=== PATIENT | female | born 1950 | race Caucasian/White ===

== ENCOUNTER 2018-08-13 10:21 | Emergency (ER) | payer MEDICARE, BC, SELFPAY ==
[2018-08-13 10:25] VITALS: BP 167/80; PULSE 68; RESP 16; TEMP 36.8; O2SAT 99
[2018-08-13 10:54] LABS: Bilirubin Negative (Negative); Blood Negative (Negative); Clarity Clear; Glucose Negative (Negative); Ketones Negative (Negative); Leukocyte Esterase Negative (Negative); Nitrite Negative (Negative); Specific Gravity 1.015 (1.005-1.025); Urobilinogen 0.2 EU/dL (Up TO 0.2); pH 7.5 (5-8)
--- NOTE | 2018-08-13 11:27 | W.ED.GENAD ---
Discharge Plan Disposition Patient Disposition: HOME Discharge Details Chief Complaint: FlankPain Clinical Impression: Acute left-sided low back pain Primary Care Provider: Nithin Abreu ED Provider: Bertram Dan Home Meds and New Rx's Prescriptions: New ibuprofen 600 mg tablet 600 mg PO QID PRN (Reason: pain) Qty: 120 RF: 0 lidocaine 5 % adhesive patch,medicated 1 patch TP DAILY Qty: 15 RF: 0 ondansetron 4 mg tablet,disintegrating 4 mg PO BID PRN (Reason: Nausea) 5 Days Qty: 5 RF: 0 Continue cholecalciferol (vitamin D3) 1,000 UNIT capsule 1 tab PO DAILY RF: 0 omega-3 fatty acids [Fish Oil] 500 MG capsule 1 tab PO DAILY RF: 0 magnesium chloride [Mag 64] 64 MG tablet,delayed release (DR/EC) 1 tab PO DAILY RF: 0 lactobacillus combo no.11 [Probiotic] 1 EACH capsule, sprinkle 1 ea PO RF: 0 biotin 10 MG tablet 10 mg PO DAILY RF: 0 cyanocobalamin (vitamin B-12) [Vitamin B-12] 1,000 MCG tablet 1,000 mcg PO DAILY RF: 0 vit D3-vit [id number] [Ostera] 1 EACH tablet 1 ea PO DAILY RF: 0 coenzyme Q10 [Co Q-10] 10 MG capsule 10 mg PO DAILY RF: 0 riboflavin (vitamin B2) 50 MG tablet 50 mg PO DAILY RF: 0 loratadine-pseudoephedrine [Claritin-D 24 Hour] 1 EACH tablet extended release 24 hr 1 tab-cap PO DAILY RF: 0 dihydroergotamine [Migranal] 1 ML spray,non-aerosol 0.5 mg NS PRN Qty: 1 RF: 0 Discontinued ibuprofen 600 MG tablet 600 mg PO bid prn RF: 0 Discharge Instructions Instructions: Shingles (ED), Low Back Strain (ED) Additional Instructions: Please take ibuprofen 600 mg every 6 hours as needed for pain. Please take Tylenol 650 mg every 6 hours as needed for pain. Please contact your primary care physician to arrange follow-up. Return to the ER for any worsening or new concerning symptoms. Referrals: Nithin Abreu, [Primary Care Provider] - Medical Decision Making 67-year-old female here with left low back and flank pain for the past 5 days. Concern for renal colic versus muscular strain versus other. Urinalysis was obtained and reviewed and is nondiagnostic CT of the abdomen pelvis was obtained to assess for acute surgical pathology. CT of the abdomen and pelvis interpreted by radiology: Negative for renal stone, no obstruction, gallstones are present without signs of acute cholecystitis or obstruction. Results were reviewed with the patient. Patient was reassessed after being medicated with Toradol and Dilaudid IM. Pain significantly improved. Patient much more comfortable. Suspect pain is musculoskeletal in etiology, likely muscular strain versus less likely zoster. We will prescribe lidocaine patches as well as ibuprofen for the patient. Patient was encouraged to follow-up with her primary care physician. She understands importance of timely follow-up. I did recommend she return should she have any worsening or new concerning symptoms 14:30 -- Prior to discharge patient was moving from supine to standing and became nauseous with dry heaving. Suspect reaction to dialudid. Attempted zofran ODT and symptoms persisted. Plan for IV fluids and zofran IV. Will reassess. 16:25 -- Patient reassessed after IVF and feels [facility] better. Pain still resolved and now nausea resolved. HPI General Date/Time Provider Initiated Documentation: 08/13/18 10:40. Limitations to Documentation: no limitations. Information obtained by: patient. HPI Narrative: 67-year-old female presents with chief complaint of left low back and flank pain. Pain started 5 days ago. Pain initially waxed and waned and is now more constant. Pain is severe at times. Pain is described as a hot poker sensation. Pain worse with certain positions including prolonged sitting or standing. No associated numbness or weakness. No associated fever. No associated dysuria or hematuria. No bowel or bladder dysfunction. Related Data Home Medications Medication Instructions Recorded Confirmed cholecalciferol (vitamin D3) 1 tab PO DAILY 02/20/13 08/13/18 magnesium chloride [Mag 64] 1 tab PO DAILY 02/20/13 08/13/18 omega-3 fatty acids [Fish Oil] 1 tab PO DAILY 02/20/13 08/13/18 lactobacillus combo no.11 1 ea PO cap.sprink 08/13/15 09/21/15 [Probiotic] biotin 10 mg PO DAILY 01/03/17 08/13/18 cyanocobalamin (vitamin B-12) 1,000 mcg PO DAILY 01/03/17 08/13/18 [Vitamin B-12] vit D3-vit [id number] 1 ea PO DAILY 01/03/17 08/13/18 [Ostera] coenzyme Q10 [Co Q-10] 10 mg PO DAILY 05/29/18 08/13/18 dihydroergotamine [Migranal] 0.5 mg NS PRN #1 spray 05/29/18 08/13/18 loratadine-pseudoephedrine 1 tab-cap PO DAILY tab-cap 05/29/18 08/13/18 [Claritin-D 24 Hour] riboflavin (vitamin B2) 50 mg PO DAILY 05/29/18 08/13/18 ibuprofen 600 mg PO QID PRN #120 tab 08/13/18 lidocaine 1 patch TP DAILY #15 each 08/13/18 ondansetron 4 mg PO BID PRN 5 Days #5 tab 08/13/18 Previous Rx's Medication Instructions Recorded ibuprofen 600 mg PO QID PRN #120 tab 08/13/18 lidocaine 1 patch TP DAILY #15 each 08/13/18 ondansetron 4 mg PO BID PRN 5 Days #5 tab 08/13/18 Allergies Allergy/AdvReac Type Severity Reaction Status Date / Time Iodine and Iodide Containing AdvReac Mild cough Unverified 08/13/18 10:33 Produc General Stated Complaint: Urinary HARIKA: 3 Review of Systems Review of Systems All systems reviewed & are unremarkable except as noted in HPI and below Cardiovascular Denies dyspnea Respiratory Denies dyspnea Gastrointestinal Reports abdominal pain (chronic intermittent and unchanged), Denies change in bowel habits, Denies nausea and Denies vomiting Genitourinary Reports as per HPI PFSH Medical History Ruptured spleen (Acute) Social History frequency: 5-6 times per week duration: 15-30 minutes/day Smoking/Tobacco Use Status: Former Tobacco Use alcohol intake: current alcohol intake frequency: a few times a week substance use type: does not use Exam Const General: cooperative and no acute distress HENMT Head: normocephalic and atraumatic Mouth: moist mucous membranes Eyes Conjunctivae: normal conjunctivae Sclera: normal sclerae EOM: EOM intact bilaterally Neck Neck: trachea midline and supple Resp Auscultation: clear to auscultation bilaterally, no rales, no rhonchi and no wheezes Cardio Jugular venous pressure: no JVD Rate: regular rate and not tachycardic Rhythm: regular rhythm GI Palpation: soft, not firm, no guarding, no masses, not rigid and nontender Back/Spine/Pelvis Thoracic/Lumbar Spine: No thoracic spinal tenderness and No lumbar spinal tenderness Skin Rashes: rashes noted (dime sized erythema posterior lower back in area of discomfort) Neuro General: alert, awake, oriented x3, tone normal and no focal motor deficits Motor: muscle tone normal throughout Extrem General: no edema Psych Appearance: grossly normal Mental Status: mental status grossly normal Speech and Movement: speech and movement normal Course Vital Signs Temperature 36.8 C 08/13/18 10:25 Pulse 68 08/13/18 10:25 Respiratory Rate 16 08/13/18 10:25 Blood Pressure 167/80 H 08/13/18 10:25 Pulse Oximetry 99 08/13/18 10:25 Temperature 36.8 C 08/13/18 10:25 Pulse 68 08/13/18 10:25 Respiratory Rate 16 08/13/18 10:25 Respiratory Effort 08/13/18 10:30 Blood Pressure 167/80 H 08/13/18 10:25 Blood Pressure Position Sitting 08/13/18 10:25 Pulse Oximetry 99 08/13/18 10:25 Oxygen Delivery Method Room Air 08/13/18 10:25 Oxygen Flow Rate 0 08/13/18 10:25 Pain Level 5 08/13/18 10:59 Lab/Test Results Lab/Test Results: Laboratory Tests Range/Units 08/13/18 10:38 Urine Color (Yellow) Yellow Urine Clarity Clear Urine pH (5-8) 7.5 Ur Specific [place] (1.005-1.025) 1.015 Urine Protein (Negative) mg/dL Negative Urine Ketones (Negative) mg/dL Negative Urine Blood (Negative) Negative Urine Nitrite (Negative) Negative Urine Bilirubin (Negative) Negative Urine Urobilinogen (Up TO 0.2) EU/dL 0.2 Ur Leukocyte Esterase (Negative) Negative Urine Glucose (Negative) mg/dL Negative
[2018-08-13] MEDS: Ketorolac 30 MG/ML VIAL IM (11:36)
[2018-08-13] MEDS: HYDROmorphone 2 MG/ML VIAL 1 MG IM (11:37)
--- NOTE | 2018-08-13 11:55 | DI.CT_ITS ---
SYMPTOMS/DIAGNOSIS: LT FLANK PAIN FOR [address]: Routine examination was performed. Comparison 10/12/15. No acute findings are seen in the lung bases. Lack of IV contrast does limit evaluation of the abdominal organs. The unenhanced visualized portions of the liver, pancreas and adrenal glands are unremarkable. 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 There are stones seen within the gallbladder. No biliary ductal dilatation is present. No evidence of nephrolithiasis, ureterolithiasis or obstructive uropathy is identified. The urinary bladder is intact. No bladder stones are present. The reproductive organs are unremarkable. The abdominal aorta is of normal caliber with mild atherosclerosis. No abdominal or pelvic adenopathy, ascites or pneumoperitoneum is present. The bowel shows no evidence of obstruction or inflammation. No findings to suggest an acute appendicitis are present. There is a left convex scoliosis of the lumbar spine. Degenerative changes are present throughout the lumbar spine. The findings are most marked at L 3 - 4 and L 4 - 5. IMPRESSION: 1. No evidence of nephrolithiasis or obstructive uropathy. 2. Cholelithiasis. No biliary ductal dilatation. The findings were discussed with the emergency department on the date of the examination.
[2018-08-13] MEDS: Ondansetron O.D.T. 4 MG TABEF (13:50)
[2018-08-13] MEDS: Lidocaine 5% Patch 1 PATCH (14:05)
[2018-08-13] MEDS: Normal Saline 1,000 ML 1000 ML IV (15:23)
[2018-08-13] MEDS: Ondansetron 4 MG/2 ML VIAL IVP (15:23)
[2018-08-13 15:59] VITALS: BP 146/76; PULSE 78; RESP 16; O2SAT 99
== END 2018-08-13 16:53 | disposition home or self-care (01) ==
PROVIDERS: Emergency Provider Student in an Organized Health Care Education/Training Program; PCP Emergency Medicine
DX: R10.32 Left lower quadrant pain (principal); R11.0 Nausea
CPT/HCPCS: 96360; 96372; 99284; 74176; 81003; 99285; J1885; J2405

== ENCOUNTER 2018-08-27 10:40 | Outpatient (CLI) | payer MEDICARE, BC, SELFPAY ==
[2018-08-27 12:41] LABS: Abs Immature Grans 0.01 k/cumm (0.0-0.09); Absolute Basophil Count 0.05 k/cumm (0.0-0.2); Absolute Eosinophil Count 0.07 k/cumm (0.0-0.7); Absolute Lymphocyte Count 5.56 k/cumm (1.2-3.4); Absolute Monocyte Count 1.01 k/cumm (0.11-0.7); Absolute Neutrophil Count 4.96 k/cumm (1.2-6.7); Basophils % 0.4; Eosinophils % 0.6; HCT 42.5 % (36.0-46.0); HGB 14.3 g/dL (12.0-15.5); Immature Grans % 0.1; Lymphocytes % 47.7; Mean Corp. HGB Concentration 33.6 g/dL (32.0-36.0); Mean Corpuscular Hemoglobin 30.3 pg (27.0-33.0); Mean Platelet Volume 10.4 fL (8.0-11.0); Monocytes % 8.7; Neutrophils % 42.5; Platelet Count 519 x1000/uL (130-400); RBC 4.72 m/cumm (4.00-5.20); RBC Distribution Width 14.3 % (11.7-14.6); White Blood Cell Count 11.66 k/cumm (4.4-10.8)
[2018-08-27 13:04] LABS: RBC Morphology Normal
== END 2018-08-27 11:00 ==
PROVIDERS: PCP Emergency Medicine; Visit Provider Internal Medicine
DX: B02.9 Zoster without complications (principal)
CPT/HCPCS: 36415; 85025

== ENCOUNTER 2018-08-30 03:02 | Emergency (ER) | payer MEDICARE, BC, SELFPAY ==
[2018-08-30 03:05] VITALS: BP 170/104; PULSE 93; RESP 20; TEMP 36.6; O2SAT 97
--- NOTE | 2018-08-30 03:37 | ED.GENADUL_ITS ---
Discharge Plan Disposition Patient Disposition: HOME Condition: Fair Discharge Details Chief Complaint: Cellulitis Clinical Impression: Shingles Primary Care Provider: Nithin Abreu ED Provider: Yosef Nevarez Home Meds and New Rx's Prescriptions: New capsaicin [Zostrix-HP] 0.1 % cream 1 applic TP TID Qty: 42.5 RF: 0 No Action prednisone 20 mg tablet 20 mg PO DAILY Qty: 20 RF: 1 ondansetron HCl [Zofran] 4 mg tablet 4 mg PO QID PRN (Reason: nausea and vomiting) Qty: 20 RF: 2 ketorolac 10 mg tablet 10 mg PO ONCE Qty: 16 RF: 0 amitriptyline 10 mg tablet 10 mg PO DAILY Qty: 30 RF: 3 valacyclovir 500 mg tablet 1,000 mg PO TID Qty: 42 RF: 1 gabapentin 300 mg capsule 300 mg PO TID Qty: 30 RF: 2 cholecalciferol (vitamin D3) 1,000 UNIT capsule 1 tab PO DAILY RF: 0 omega-3 fatty acids [Fish Oil] 500 MG capsule 1 tab PO DAILY RF: 0 magnesium chloride [Mag 64] 64 MG tablet,delayed release (DR/EC) 1 tab PO DAILY RF: 0 lactobacillus combo no.11 [Probiotic] 1 EACH capsule, sprinkle 1 ea PO RF: 0 biotin 10 MG tablet 10 mg PO DAILY RF: 0 cyanocobalamin (vitamin B-12) [Vitamin B-12] 1,000 MCG tablet 1,000 mcg PO DAILY RF: 0 vit D3-vit [id number]-[id number] [Ostera] 1 EACH tablet 1 ea PO DAILY RF: 0 coenzyme Q10 [Co Q-10] 10 MG capsule 10 mg PO DAILY RF: 0 riboflavin (vitamin B2) 50 MG tablet 50 mg PO DAILY RF: 0 loratadine-pseudoephedrine [Claritin-D 24 Hour] 1 EACH tablet extended release 24 hr 1 tab-cap PO DAILY RF: 0 dihydroergotamine [Migranal] 1 ML spray,non-aerosol 0.5 mg NS PRN Qty: 1 RF: 0 ibuprofen 600 mg tablet 600 mg PO QID PRN (Reason: pain) Qty: 120 RF: 0 lidocaine 5 % adhesive patch,medicated 1 patch TP DAILY Qty: 15 RF: 0 Discharge Instructions Instructions: Shingles (ED) Additional Instructions: Please continue taking your home valacyclovir, gabapentin, amitriptyline, prednisone, and Madison. Please use the cream as directed. We will have our case management coordinator set up an appointment for you with pain management. If you notice any worsening of your symptoms, or any new symptoms such as vomiting, diarrhea, fever, chills, shortness of breath, chest pain, numbness, weakness, or fainting , please return immediately to the emergency department for reevaluation. Please follow up with your primary care provider as soon as possible for reassessment and reevaluation. As always, it was a pleasure participating in your medical care today. Referrals: Nithin Abreu, [Primary Care Provider] - Medical Decision Making This is a 67-year-old female who presents for continued pain from shingles. It is been 3 weeks since her initial symptoms develop. She has been treated appropriately with an extensive medical regimen of valacyclovir, prednisone, gabapentin, amitriptyline, Madison 10 mg, ibuprofen, Tylenol, and Lidoderm patches. In spite of all of this the patient has not had resolution of her symptoms. She has had Toradol over 4 times, has been taking maximum dose ibuprofen. I do not feel that additional Toradol would be beneficial for her at this time. I feel her other medical management is certainly adequate for what is recommended by the literature. There is no evidence of superimposed cellulitic infection. Her pain appears to be clinically consistent with neuropathic pain secondary to shingles. We will add capscasin cream to her medical management. I do not feel that any additional narcotics would be of benefit as she already has Madison 10 mg pills at home. We will send a referral to pain management for the severity of her pain, and other potential pain management alternatives that we have not yet tried. We will give 1 shot of IM Dilaudid to help her pain be eased, and to help her get some sleep tonight. She does have follow-up with her primary care provider tomorrow morning. We have encouraged continued follow-up for this. Discussed red flags for which to return, and the patient and her understand. I have extensively reviewed the treatment plan and discharge instructions with the patient and their family. I have addressed all patient concerns at this time. The patient and family was made aware of what symptoms to monitor for that would warrant a return to the emergency department. Discussed the plan with the patient and family, they demonstrate verbal understanding and agreement with our assessment and plan at this time. HPI General Date/Time Provider Initiated Documentation: 08/30/18 03:30 . 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 She was diagnosed with shingles roughly 3 weeks ago here in the ED, and had close follow-up 6 days later. She was started on valacyclovir, gabapentin, amitriptyline, Madison 10mg, prednisone, Toradol, ibuprofen, Tylenol, and Lidoderm patches. In spite of extensive medical management she has not had resolution of her symptoms. She presents tonight for continuation of her shingles pain. The rash occurred on the left side of her flank, the rash is notably improved since it initially started. The vesicles have all resolved, and it is now a scabbed over rash. She denies any other associated symptoms of fever, chills, chest pain, shortness of breath, redness, numbness, tingling, vomiting, or diarrhea. She describes her pain as an achy burning sensation over the skin. She has no associated urinary or abdominal symptoms. She denies any other complaints at this time. She states that she has been taking her medications as directed. She denies any pertinent family history. She denies any IV or illicit drug use. Related Data Home Medications Medication Instructions Recorded Confirmed cholecalciferol (vitamin D3) 1 tab PO DAILY 02/20/13 08/27/18 magnesium chloride [Mag 64] 1 tab PO DAILY 02/20/13 08/27/18 omega-3 fatty acids [Fish Oil] 1 tab PO DAILY 02/20/13 08/27/18 lactobacillus combo no.11 1 ea PO cap.sprink 08/13/15 08/27/18 [Probiotic] biotin 10 mg PO DAILY 01/03/17 08/27/18 cyanocobalamin (vitamin B-12) 1,000 mcg PO DAILY 01/03/17 08/27/18 [Vitamin B-12] vit D3-vit [id number] 1 ea PO DAILY 01/03/17 08/27/18 [Ostera] coenzyme Q10 [Co Q-10] 10 mg PO DAILY 05/29/18 08/27/18 dihydroergotamine [Migranal] 0.5 mg NS PRN #1 spray 05/29/18 08/27/18 loratadine-pseudoephedrine 1 tab-cap PO DAILY tab-cap 05/29/18 08/27/18 [Claritin-D 24 Hour] riboflavin (vitamin B2) 50 mg PO DAILY 05/29/18 08/27/18 ibuprofen 600 mg PO QID PRN #120 tab 08/13/18 08/27/18 lidocaine 1 patch TP DAILY #15 each 08/13/18 08/27/18 gabapentin 300 mg capsule 300 mg PO TID #30 cap 08/19/18 08/27/18 valacyclovir 500 mg tablet 1,000 mg PO TID #42 tab 08/19/18 08/27/18 ketorolac 10 mg tablet 10 mg PO ONCE #16 tab 08/21/18 08/27/18 ondansetron HCl 4 mg tablet 4 mg PO QID PRN #20 tab 08/21/18 08/27/18 prednisone 20 mg tablet 20 mg PO DAILY #20 tab 08/21/18 08/27/18 amitriptyline 10 mg tablet 10 mg PO DAILY #30 tab 08/27/18 08/27/18 capsaicin [Zostrix-HP] 1 applic TP TID #42.5 gm 08/30/18 Previous Rx's Medication Instructions Recorded ibuprofen 600 mg PO QID PRN #120 tab 08/13/18 lidocaine 1 patch TP DAILY #15 each 08/13/18 gabapentin 300 mg capsule 300 mg PO TID #30 cap 08/19/18 valacyclovir 500 mg tablet 1,000 mg PO TID #42 tab 08/19/18 ketorolac 10 mg tablet 10 mg PO ONCE #16 tab 08/21/18 ondansetron HCl 4 mg tablet 4 mg PO QID PRN #20 tab 08/21/18 prednisone 20 mg tablet 20 mg PO DAILY #20 tab 08/21/18 amitriptyline 10 mg tablet 10 mg PO DAILY #30 tab 08/27/18 capsaicin [Zostrix-HP] 1 applic TP TID #42.5 gm 08/30/18 Allergies Allergy/AdvReac Type Severity Reaction Status Date / Time Iodine and Iodide Containing AdvReac Mild cough Unverified 08/30/18 03:10 Produc General Stated Complaint: Cellulitis HARIKA: 4 Review of Systems Review of Systems All systems reviewed & are unremarkable except as noted in HPI and below PFSH Medical History Ruptured spleen (Acute) Social History frequency: 5-6 times per week duration: 15-30 minutes/day Smoking/Tobacco Use Status: Former Tobacco Use alcohol intake: current alcohol intake frequency: a few times a week substance use type: does not use Exam Narrative Exam Narrative: 1.Const: Well-nourished, Well-developed, appearing stated age, in notable pain 2.Eyes: PERRL, no conjunctival injection, and symmetrical lids. 3.ENT: Atraumatic external nose and ears. Moist MM. Neck: Symmetric, trachea midline, No thyromegaly. 4.CVS: +S1/S2, No murmurs or gallops. Peripheral pulses 2+ and equal in all extremities. Brisk capillary refill in all extremities. 5.RESP: Unlabored respiratory effort. Clear to auscultation bilaterally. No wheezes rales or rhonchi 6.GI: Soft, Nontender/Nondistended, No hepatosplenomegaly. No guarding or rebound. 7.MSK: Normocephalic/Atraumatic, Extremities w/o deformity or ttp No cyanosis or clubbing, Normal movement of all extremities 8.Skin: Warm, Dry. A healed over previous vesicular rash which now appears to be scabbed over on the left flank, starts at the left paraspinal region and radiates around the left flank. No evidence of superimposed cellulitic infection, no evidence of crossing midline. No other abnormalities. 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 Sensation grossly intact, no focal neurologic deficits. 10.Psych: (AAO) x3. Appropriate mood and affect Course Vital Signs Temperature 36.6 C 08/30/18 03:05 Pulse 93 H 08/30/18 03:05 Respiratory Rate 20 08/30/18 03:05 Blood Pressure 170/104 H 08/30/18 03:05 Pulse Oximetry 97 08/30/18 03:05 Temperature 36.6 C 08/30/18 03:05 Temperature Source Temporal Artery Scan 08/30/18 03:05 Pulse 93 H 08/30/18 03:05 Respiratory Rate 20 08/30/18 03:05 Respiratory Effort 08/30/18 03:05 Blood Pressure 170/104 H 10/12/18 03:05 Pulse Oximetry 97 08/30/18 03:05 Oxygen Delivery Method Room Air 08/30/18 03:05 Oxygen Flow Rate 0 08/30/18 03:05 Pain Level 10 08/30/18 03:05
[2018-08-30] MEDS: HYDROmorphone 2 MG/ML VIAL 1 MG IM (03:39)
--- NOTE | 2018-08-30 10:45 | PDOC.ERCMPRO ---
Care Management Progress Note 08/30/18-Pt seen on 08/30/[address] Mohamud Nevarez . Dr. Nevarez is requesting PCP to set up pain management for pt. Faxed f/u request to [facility].
== END 2018-08-30 03:45 | disposition home or self-care (01) ==
LOC: ER 03:44
PROVIDERS: Emergency Provider Student in an Organized Health Care Education/Training Program; PCP Emergency Medicine
DX: B02.23 Postherpetic polyneuropathy (principal)
CPT/HCPCS: 96372; 99284

== ENCOUNTER 2018-09-01 08:46 | Emergency (ER) | payer MEDICARE, BC, SELFPAY ==
[2018-09-01] VITALS (22 sets, daily range): BP systolic 134–207; BP diastolic 82–124; PULSE 68–106; RESP 10–24; TEMP 37.1–37.2; O2SAT 96–100
[2018-09-01] MEDS: Normal Saline 1,000 ML 1000 ML IV (09:20)
--- NOTE | 2018-09-01 10:26 | DI.CT_ITS ---
SYMPTOMS/DIAGNOSIS: DIFFUSE ABDOMINAL PAIN, ? OBSTRUCTION ABDOMINAL AND PELVIC CT: CT examination of the abdomen and pelvis was performed with oral contrast only. Images obtained through the lung bases are unremarkable. There has apparently been a previous splenectomy with a small splenule present in the left upper quadrant. The liver unremarkable in appearance by noncontrast criteria. There are multiple small gallstones without evident gallbladder wall thickening or pericholecystic fluid collection. No biliary dilatation seen. The pancreas unremarkable by noncontrast criteria. Adrenals and kidneys appear normal bilaterally with no evidence of hydronephrosis, nephrolithiasis or ureterolithiasis. [employer] structures appear intact. Appendix is unremarkable in appearance. There is a large quantity of fecal material throughout the colon consistent with constipation. No evidence of diverticulitis. No evidence of bowel obstruction. Small bowel is of normal caliber. No significant abdominal or pelvic adenopathy seen. No abdominal or pelvic wall hernia seen. Abdominal aorta is of normal diameter. CONCLUSION: 1. Findings consistent with constipation. 2. Cholelithiasis. 3. Presumed prior splenectomy.
[2018-09-01 10:35] LABS: Abs Immature Grans 0.06 k/cumm (0.0-0.09); Absolute Basophil Count 0.04 k/cumm (0.0-0.2); Absolute Eosinophil Count 0.04 k/cumm (0.0-0.7); Basophils % 0.2; Eosinophils % 0.2; HCT 47.3 % (36.0-46.0); HGB 16.1 g/dL (12.0-15.5); Immature Grans % 0.3; Lymphocytes % 26.1; Mean Corpuscular Hemoglobin 30.1 pg (27.0-33.0); Mean Corpuscular Volume 88.6 fL (80-95); Mean Platelet Volume 10.3 fL (8.0-11.0); Monocytes % 8.3; Neutrophils % 64.9; Platelet Count 595 x1000/uL (130-400); RBC 5.34 m/cumm (4.00-5.20); RBC Distribution Width 14.6 % (11.7-14.6); White Blood Cell Count 19.13 k/cumm (4.4-10.8)
--- NOTE | 2018-09-01 10:36 | ED.GENADUL_ITS ---
Discharge Plan Disposition Patient Disposition: HOME Condition: Improving Discharge Details Chief Complaint: Abd Prob Clinical Impression: Abdominal pain, Constipation due to pain medication Primary Care Provider: Nithin Abreu ED Provider: Brittney Fischer Home Meds and New Rx's Prescriptions: New docusate sodium [Colace] 100 mg capsule 100 mg PO BID 14 Days Qty: 28 RF: 0 Continue prednisone 20 mg tablet 20 mg PO DAILY Qty: 20 RF: 1 ondansetron HCl [Zofran] 4 mg tablet 4 mg PO QID PRN (Reason: nausea and vomiting) Qty: 20 RF: 2 amitriptyline 50 mg tablet 50 mg PO HS Qty: 30 RF: 1 hydromorphone [Dilaudid] 2 mg tablet 2 mg PO Q4H MDD 8 mg PRN (Reason: pain) 7 Days Qty: 30 RF: 0 cholecalciferol (vitamin D3) 1,000 UNIT capsule 1 tab PO DAILY RF: 0 omega-3 fatty acids [Fish Oil] 500 MG capsule 1 tab PO DAILY RF: 0 magnesium chloride [Mag 64] 64 MG tablet,delayed release (DR/EC) 1 tab PO DAILY RF: 0 lactobacillus combo no.11 [Probiotic] 1 EACH capsule, sprinkle 1 ea PO RF: 0 biotin 10 MG tablet 10 mg PO DAILY RF: 0 cyanocobalamin (vitamin B-12) [Vitamin B-12] 1,000 MCG tablet 1,000 mcg PO DAILY RF: 0 vit D3-vit [id number] [Ostera] 1 EACH tablet 1 ea PO DAILY RF: 0 coenzyme Q10 [Co Q-10] 10 MG capsule 10 mg PO DAILY RF: 0 riboflavin (vitamin B2) 50 MG tablet 50 mg PO DAILY RF: 0 loratadine-pseudoephedrine [Claritin-D 24 Hour] 1 EACH tablet extended release 24 hr 1 tab-cap PO DAILY RF: 0 dihydroergotamine [Migranal] 1 ML spray,non-aerosol 0.5 mg NS PRN Qty: 1 RF: 0 capsaicin [Zostrix-HP] 0.1 % cream 1 applic TP TID Qty: 42.5 RF: 0 ibuprofen 600 mg tablet 600 mg PO QID PRN (Reason: pain) Qty: 120 RF: 0 lidocaine 5 % adhesive patch,medicated 1 patch TP DAILY Qty: 15 RF: 0 Discharge Instructions Instructions: Constipation (ED), Abdominal Pain (ED) Additional Instructions: Hold on taking narcotic pain medications if they are not helping as they can contribute to constipation. Drink plenty of fluids and eat plenty of fiber. Take [id number] magnesium citrate as directed. If you have no relief with magnesium citrate, you can try suppositories or enema. Take the stool softeners as directed. Follow-up with your primary care doctor in 1 week for reevaluation. Return to the emergency department with any worsening or new concerning symptoms. Discharge Data Discharge Date/Time-TO BE ENTERED AT DEPARTURE: 09/01/18 14:46 Discharge Physician: Brittney Fischer Medical Decision Making 67-year-old female w/ a h/o splenectomy and hernia repair seen frequently in the ED and at the PCP office for neuropathic pain related to shingles and taking narcotics including hydrocodone and Dilaudid over the past few weeks who presents for intermittent crampy abdominal pain for the past few days and constipation for 5 days. Blood pressure hypertensive, remainder vitals within normal limits, afebrile. Abdomen soft and diffusely tender but worst in left lower quadrant. Shingles lesions appear to be healing and crusting over and patient states this neuropathic pain is improving. Differential diagnosis includes crampy pain due to constipation, bowel obstruction, diverticulitis. Suspect her pain likely due to constipation as her shingles pain is improving. Patient is declining morphine, Dilaudid or Toradol. She states she needs to be admitted for pain control. I discussed with patient that if she is declining any pain medication, and we do not find any acute abnormality on workup, there would be no acute indication for admission and she would likely benefit from outpatient suppositories, enema, or mag citrate. EKG done on arrival and not ordered by me; notes a rate of 85, sinus, nonspecific inconsistent less than [address] depression noted in V5, V6. No acute ST elevation. Patient denied any chest pain or shortness of breath. Will place an IV, bolus IV fluids, labs, urinalysis and CT abdomen and pelvis without IV contrast and with p.o. contrast. She is allergic to iodine so she has to drink barium which will take approximately 2 hours. 1200--labs reviewed and note a white blood cell count of 19, gap 13.7, creatinine 1.17 urinalysis 3-5 WBCs with trace leukocyte esterase, negative bacteria negative nitrate. 1230 --patient appears much more comfortable. She has been able to drink barium. She will go to CT within 30 minutes. Patient is agreeable to dose of Toradol now. 1310 --discussed with Dr. Peña -feces noted throughout consistent with constipation but no acute obstruction. Patient refused dose of Toradol. 1415 --patient states she feels better and feels good to go home. She states she had a small bowel movement in the bathroom. She wants to hold on narcotic pain medications as they are not helping anyway. She is now agreeable to toradol. Patient instructed to use suppositories, mag citrate, or enemas as directed to help with constipation. Will send home with prescription for Colace. She is instructed to drink plenty of fluids. Instructed to follow-up with primary care doctor in 1 week for reevaluation and return here if worse. HPI General Mode of arrival: ambulatory . Date/Time Provider Initiated Documentation: 09/01/18 08:58 . Limitations to Documentation: no limitations . Information obtained by: patient . HPI Narrative: Pt is a 67yo F who has been recently treated with multiple narcotics for shingles including hydrocodone and dilaudid who presents for intermittent crampy abdominal pain for the past few days. Last BM 5 days ago. Admits to vomiting 3x last night, mainly phlegm. States she has taken MiraLAX, Dulcolax and Senokot for her constipation without relief. Last dose of Zofran last night. She is no longer taking hydrocodone but is still on Dilaudid, last dose of Dilaudid yesterday afternoon. She has been eating and drinking normally. She did not eat any breakfast this morning but drank tea. She has been seen in the ED and with her primary care doctor for frequent visits for her shingles. She was given capsaicin in the ED here 2 days ago but she has not used it. She states her shingles pain is now improving. She last saw her PCP 2 days ago in the office and he had increased her Elavil to 50 mg at night and gave her shot of Toradol. She denies any known fever, urinary symptoms, recent antibiotics, recent travel, chest pain or shortness of breath. 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 off horse, hernia repair February 2018 Social history: Quit tobacco, occasional wine, denies drugs Medications: Elavil, capsaicin, Dilaudid, Senokot, Unisom, ibuprofen Allergies: Iodine Related Data Home Medications Medication Instructions Recorded Confirmed cholecalciferol (vitamin D3) 1 tab PO DAILY 02/20/13 08/30/18 magnesium chloride [Mag 64] 1 tab PO DAILY 02/20/13 08/30/18 omega-3 fatty acids [Fish Oil] 1 tab PO DAILY 02/20/13 08/30/18 lactobacillus combo no.11 1 ea PO cap.sprink 08/13/15 08/30/18 [Probiotic] biotin 10 mg PO DAILY 01/03/17 08/30/18 cyanocobalamin (vitamin B-12) 1,000 mcg PO DAILY 01/03/17 08/30/18 [Vitamin B-12] vit D3-vit [id number] 1 ea PO DAILY 01/03/17 08/30/18 [Ostera] coenzyme Q10 [Co Q-10] 10 mg PO DAILY 05/29/18 08/30/18 dihydroergotamine [Migranal] 0.5 mg NS PRN #1 spray 05/29/18 08/30/18 loratadine-pseudoephedrine 1 tab-cap PO DAILY tab-cap 05/29/18 08/30/18 [Claritin-D 24 Hour] riboflavin (vitamin B2) 50 mg PO DAILY 05/29/18 08/30/18 ibuprofen 600 mg PO QID PRN #120 tab 08/13/18 08/30/18 lidocaine 1 patch TP DAILY #15 each 08/13/18 08/30/18 ondansetron HCl 4 mg tablet 4 mg PO QID PRN #20 tab 08/21/18 08/30/18 prednisone 20 mg tablet 20 mg PO DAILY #20 tab 08/21/18 08/30/18 amitriptyline 50 mg tablet 50 mg PO HS #30 tab 08/30/18 08/30/18 capsaicin [Zostrix-HP] 1 applic TP TID #42.5 gm 08/30/18 08/30/18 hydromorphone 2 mg tablet 2 mg PO Q4H PRN 7 Days #30 tab MDD 08/30/18 08/30/18 8 mg docusate sodium [Colace] 100 mg PO BID 14 Days #28 cap 09/01/18 Previous Rx's Medication Instructions Recorded ibuprofen 600 mg PO QID PRN #120 tab 08/13/18 lidocaine 1 patch TP DAILY #15 each 08/13/18 ondansetron HCl 4 mg tablet 4 mg PO QID PRN #20 tab 08/21/18 prednisone 20 mg tablet 20 mg PO DAILY #20 tab 08/21/18 amitriptyline 50 mg tablet 50 mg PO HS #30 tab 08/30/18 capsaicin [Zostrix-HP] 1 applic TP TID #42.5 gm 08/30/18 hydromorphone 2 mg tablet 2 mg PO Q4H PRN 7 Days #30 tab MDD 08/30/18 8 mg docusate sodium [Colace] 100 mg PO BID 14 Days #28 cap 09/01/18 Allergies Allergy/AdvReac Type Severity Reaction Status Date / Time Iodine and Iodide Containing AdvReac Mild cough Unverified 09/01/18 09:26 Produc General Stated Complaint: Abd Prob HARIKA: 3 Review of Systems Review of Systems All systems reviewed & are unremarkable except as noted in HPI and below Constitutional Denies chills, Denies excessive sweating, Denies fatigue, Denies fever(s), Denies weakness and Denies weight loss Eyes Reports system reviewed and no additional complaints, except as docu and Denies blurry vision ENT Denies vertigo, Denies dizziness, Denies otalgia, Denies nasal congestion, Denies sore throat and Denies throat swelling Cardiovascular Denies chest pain, Denies syncope, Denies rapid heart rate and Denies dyspnea Respiratory Denies dyspnea Gastrointestinal Reports abdominal pain, Reports constipation, Denies diarrhea and Reports vomiting Genitourinary Denies hematuria, Denies dysuria and Denies flank pain Musculoskeletal Denies back pain and Denies joint swelling Integumentary/Breasts Denies lesions and Reports rash Neurologic Denies behavioral changes, Denies confusion, Denies vertigo, Denies dizziness, Denies syncope and Denies weakness Psychiatric Denies behavioral changes, Denies confusion and Denies depression Endocrine Denies excessive sweating and Denies fatigue Hematologic/Lymphatic Denies easy bruising and Denies lymphadenopathy Allergic/Immunologic Denies throat swelling [facility] Medical History Ruptured spleen (Acute) Social History frequency: 5-6 times per week duration: 15-30 minutes/day Smoking/Tobacco Use Status: Former Tobacco Use alcohol intake: current alcohol intake frequency: a few times a week substance use type: does not use Exam Const General: cooperative, healthy appearing and acute distress (Crying during exam) Orientation: alert and awake HENMT Head: normal to inspection Ears: hearing grossly normal bilaterally and external ears normal General nose exam: external nose normal Face and sinus: normal facial exam Mouth: oral mucosae normal Eyes General: appearance normal, both eyes and all related structures Eyelids: eyelids normal EOM: EOM intact bilaterally Neck Neck: normal visual inspection Chest Chest: normal inspection of the chest Resp Effort & Inspection: normal respiratory effort and able to speak in complete sentences Auscultation: clear to auscultation bilaterally Cardio Rate: regular rate Rhythm: regular rhythm GI Inspection: normal to inspection Palpation: soft, not firm, no guarding, no hepatosplenomegaly, no masses and tender Auscultation: hypoactive bowel sounds Skin Rashes: rashes noted (Crusted scattered lesions noted on left lower quadrant, left side and left flank; no erythema, edema or) Neuro General: alert and awake Cognition: normal cognition Speech: speech normal Gait: normal gait Motor: muscle tone normal throughout Sensory Exam: no sensory deficits noted Extrem General: normal to inspection, full ROM, normal capillary refill and no edema Psych Appearance: grossly normal Mental Status: mental status grossly normal Speech and Movement: speech and movement normal Affect: normal affect Thought Process: normal Course Vital Signs Pulse 106 H 09/01/18 08:47 Blood Pressure 183/124 H 09/01/18 08:47 Pulse Oximetry 96 09/01/18 08:47 Temperature 98.8 F 09/01/18 08:51 Temperature Source Temporal Artery Scan 09/01/18 08:51 Pulse 91 H 09/01/18 08:51 Pulse 75 09/01/18 09:20 Respiratory Rate 14 09/01/18 09:20 Blood Pressure 207/108 H 09/01/18 08:51 Blood Pressure Mean 131 09/01/18 08:49 Blood Pressure Position Supine 09/01/18 08:51 Pulse Oximetry 98 09/01/18 09:20 Oxygen Delivery Method Room Air 09/01/18 08:51 Oxygen Flow Rate 0 09/01/18 08:51 Pain Level 10 09/01/18 08:51
[2018-09-01 10:38] LABS: Absolute Lymphocyte Count 4.99 k/cumm (1.2-3.4); Absolute Monocyte Count 1.59 k/cumm (0.11-0.7); Absolute Neutrophil Count 12.42 k/cumm (1.2-6.7)
[2018-09-01 10:50] LABS: ALT 26 U/L (12-78); AST 15 U/L (15-37); Albumin 3.9 g/dL (3.4-5.0); Alkaline Phosphatase 83 U/L (46-116); Anion Gap 13.7 mmol/L (3-11); BUN 26 mg/dL (7-18); Bilirubin, Total 0.5 mg/dL (0.2-1.0); CO2 25.3 mmol/L (21.0-32.0); CREATININE 1.17 mg/dL (0.55-1.02); Calcium 9.8 mg/dL (8.5-10.1); Chloride 99 mmol/L (98-107); Estimated GFR 46.28 (mL/min/1.73m2); Glucose 82 mg/dL (70-100); Lipase 145 U/L (73-393); Potassium 3.8 mmol/L (3.5-5.1); Sodium 138 mmol/L (136-145); Total Protein 8.1 g/dL (6.4-8.2)
[2018-09-01 11:34] LABS: Bilirubin Negative (Negative); Blood Negative (Negative); Clarity Clear; Glucose Negative (Negative); Ketones Negative (Negative); Leukocyte Esterase Trace (Negative); Nitrite Negative (Negative); Specific Gravity 1.015 (1.005-1.025); Urobilinogen 0.2 EU/dL (Up TO 0.2)
[2018-09-01 12:14] LABS: Bacteria Negative HPF (Negative); C & S Indicated? No; Casts 3-5 Hyaline LPF (Negative); Crystals Few Amorphous HPF (Negative); Epithelial Cells Rare HPF (Negative); Mucus Trace (Negative); RBC Negative (0-2)
[2018-09-01] MEDS: Ketorolac 30 MG/ML VIAL IM (14:28)
== END 2018-09-01 14:46 | disposition home or self-care (01) ==
PROVIDERS: Emergency Provider Physician Assistant; PCP Emergency Medicine
DX: K59.03 Drug induced constipation (principal); T40.605A Adverse effect of unspecified narcotics, initial encounter; R10.32 Left lower quadrant pain
CPT/HCPCS: 36415; 80053; 83690; 93005; 96360; 96372; 99285; 74176; 81003; 81015; 85025; 93010; J1885

== ENCOUNTER 2018-09-20 00:50 | Outpatient (CLI) | payer MEDICARE, BC, SELFPAY ==
--- NOTE | 2018-09-20 10:21 | DI.RAD_ITS ---
SYMPTOM/DIAGNOSIS: SPRAIN, PAIN,S93.401A, BRUISE RIGHT FOOT: Three views. No acute fracture or dislocation is seen. Mild degenerative changes are seen at the articulation between the sesamoid and the head of the first metatarsal. No radiopaque foreign bodies are seen in the soft tissues. IMPRESSION: No acute fracture or dislocation. RIGHT ANKLE: Three views. On the AP view, there is a 3 mm., curvilinear density lateral to the distal aspect of the fibula. This is nonspecific but may represent a tiny avulsed fracture. No other fracture or dislocation is seen. The soft tissues are unremarkable. The bones are normally mineralized. IMPRESSION: 3 mm., curvilinear density lateral to the lateral malleolus which may represent a tiny avulsed fracture. Please correlate with patient's site of pain.
== END 2018-09-20 01:10 ==
PROVIDERS: PCP Emergency Medicine; Visit Provider Emergency Medicine
DX: S93.401A Sprain of unspecified ligament of right ankle, initial encounter (principal); M79.671 Pain in right foot; M25.571 Pain in right ankle and joints of right foot; M19.071 Primary osteoarthritis, right ankle and foot; M85.871 Other specified disorders of bone density and structure, right ankle and foot
CPT/HCPCS: 73610; 73630

== ENCOUNTER 2018-11-05 01:56 | Outpatient (CLI) | payer MEDICARE, BC, SELFPAY ==
--- NOTE | 2018-11-05 09:00 | DI.CT_ITS ---
SYMPTOM/DIAGNOSIS: VENTRAL HERNIA W/O OBSTRUCTION OR GANGRENE CT ABDOMEN AND PELVIS: The study was carried out according to the usual protocol without contrast material since this patient is allergic to autonated contrast material by history. The lung bases are unremarkable. The liver is intact. The gallbladder is normal. There are multiple gallstones in the gallbladder fundus. There is no evidence of biliary obstruction. There is nothing to suggest acute cholecystitis. The pancreas, spleen and kidneys are intact. The adrenals are intact. There is no evidence of nephrolithiasis, hydronephrosis or a mass. There is no evidence of ureterolithiasis, ureterectasis. The bladder is suboptimally distended but appears grossly unremarkable. There is no evidence of bowel obstruction. The stomach is decompressed. No focal bowel abnormality is apparent. The appendix is normal. There is no evidence of free air or free fluid in the abdomen or pelvis. There is no evidence of an inguinal hernia. A tiny fat containing ventral hernia is apparent. The reproductive organs as visualized are unremarkable. There is no evidence of an aortic aneurysm. SUMMARY: A small fat containing ventral hernia is demonstrated. No bowel loops are contained in the hernia. There is incidental note made of cholelithiasis with no evidence of ductal obstruction. The patient was examined in a semi-flexed position with a jas tammy maneuver as requested.
== END 2018-11-05 02:16 ==
PROVIDERS: PCP Emergency Medicine; Visit Provider Surgery
DX: K43.9 Ventral hernia without obstruction or gangrene (principal); K80.20 Calculus of gallbladder without cholecystitis without obstruction
CPT/HCPCS: 74176

== ENCOUNTER 2019-02-11 02:03 | Outpatient (CLI) | payer MEDICARE, BC, SELFPAY ==
[2019-02-11 13:04] LABS: Abs Immature Grans 0.01 k/cumm (0.0-0.09); Absolute Basophil Count 0.02 k/cumm (0.0-0.2); Absolute Eosinophil Count 0.01 k/cumm (0.0-0.7); Absolute Lymphocyte Count 1.07 k/cumm (1.2-3.4); Absolute Monocyte Count 0.11 k/cumm (0.11-0.7); Basophils % 0.2; Eosinophils % 0.1; HCT 45.8 % (36.0-46.0); HGB 15.2 g/dL (12.0-15.5); Immature Grans % 0.1; Lymphocytes % 12.9; Mean Corp. HGB Concentration 33.2 g/dL (32.0-36.0); Mean Corpuscular Hemoglobin 29.3 pg (27.0-33.0); Mean Corpuscular Volume 88.4 fL (80-95); Mean Platelet Volume 10.8 fL (8.0-11.0); Monocytes % 1.3; Neutrophils % 85.4; Platelet Count 424 x1000/uL (130-400); RBC 5.18 m/cumm (4.00-5.20); White Blood Cell Count 8.32 k/cumm (4.4-10.8)
[2019-02-11 13:21] LABS: ALT 24 U/L (12-78); AST 17 U/L (15-37); Albumin 4.1 g/dL (3.4-5.0); Alkaline Phosphatase 104 U/L (46-116); Anion Gap 12.4 mmol/L (3-11); BUN 22 mg/dL (7-18); Bilirubin, Total 0.3 mg/dL (0.2-1.0); CO2 24.6 mmol/L (21.0-32.0); CREATININE 1.07 mg/dL (0.55-1.02); Calcium 9.8 mg/dL (8.5-10.1); Chloride 101 mmol/L (98-107); Estimated GFR 51.15 (mL/min/1.73m2); Glucose 107 mg/dL (70-100); Potassium 4.6 mmol/L (3.5-5.1); Sodium 138 mmol/L (136-145); Total Protein 7.8 g/dL (6.4-8.2)
== END 2019-02-11 02:23 ==
PROVIDERS: PCP Emergency Medicine; Visit Provider Internal Medicine
DX: J21.9 Acute bronchiolitis, unspecified (principal); N28.9 Disorder of kidney and ureter, unspecified
CPT/HCPCS: 36415; 80053; 85025

== ENCOUNTER → 2019-09-05 10:22 | Outpatient (BNVA) | payer MEDICARE, BC, SELFPAY | PROVIDERS: PCP Emergency Medicine; Referring Provider Emergency Medicine; Visit Provider Surgery | DX: R19.7 Diarrhea, unspecified (principal); R19.4 Change in bowel habit | CPT/HCPCS: 99214 ==

== ENCOUNTER 2019-09-15 11:54 | Outpatient (CLI) | payer MEDICARE, BC, SELFPAY ==
[2019-09-15 12:59] LABS: Abs Immature Grans 0.01 k/cumm (0.0-0.09); Absolute Basophil Count 0.03 k/cumm (0.0-0.2); Absolute Eosinophil Count 0.07 k/cumm (0.0-0.7); Absolute Lymphocyte Count 2.44 k/cumm (1.2-3.4); Absolute Monocyte Count 0.61 k/cumm (0.11-0.7); Absolute Neutrophil Count 2.18 k/cumm (1.2-6.7); Basophils % 0.6; Eosinophils % 1.3; HCT 48.6 % (36.0-46.0); HGB 15.8 g/dL (12.0-15.5); Immature Grans % 0.2; Lymphocytes % 45.7; Mean Corp. HGB Concentration 32.5 g/dL (32.0-36.0); Mean Corpuscular Hemoglobin 29.6 pg (27.0-33.0); Mean Platelet Volume 10.7 fL (8.0-11.0); Monocytes % 11.4; Neutrophils % 40.8; Platelet Count 426 x1000/uL (130-400); RBC 5.34 m/cumm (4.00-5.20); RBC Distribution Width 14.4 % (11.7-14.6); White Blood Cell Count 5.34 k/cumm (4.4-10.8)
[2019-09-15 13:24] LABS: ALT 27 U/L (14-59); AST 16 U/L (15-37); Albumin 4.1 g/dL (3.4-5.0); Alkaline Phosphatase 93 U/L (46-116); Anion Gap 7.1 mmol/L (3-11); BUN 12 mg/dL (7-18); Bilirubin, Total 0.3 mg/dL (0.2-1.0); CO2 28.9 mmol/L (21.0-32.0); Calcium 9.8 mg/dL (8.5-10.1); Chloride 103 mmol/L (98-107); Glucose 97 mg/dL (70-100); Potassium 5.2 mmol/L (3.5-5.1); Sodium 139 mmol/L (136-145); TSH 2.73 uIU/mL (0.36-3.74)
[2019-09-16 11:33] LABS: HBs Antibody, Qual Negative; HBs Antibody, Quant <3.1 mIU/mL; Hepatitis B Core Antibody Negative (NEGAT); Hepatitis B surface Ag Negative (NEGAT); Hepatitis C Ab w Rflx HCV PCR Negative (NEGAT)
== END 2019-09-15 12:14 ==
PROVIDERS: Internal Medicine; PCP Emergency Medicine; Visit Provider Emergency Medicine
DX: R50.9 Fever, unspecified (principal); R10.9 Unspecified abdominal pain; Z90.81 Acquired absence of spleen; M79.673 Pain in unspecified foot
CPT/HCPCS: 36415; 80053; 86704; 86706; 86803; 87340; 84443; 85025

== ENCOUNTER 2019-09-15 16:30 | Outpatient (CLI) | payer MEDICARE, BC, SELFPAY ==
--- NOTE | 2019-09-15 14:15 | DI.RAD_ITS ---
EXAM: XR FOOT RT COMPLETE INDICATION: foot pain, M79.673. COMPARISON: XR ANKLE RT COMPLETE from 09/20/2018 TECHNIQUE: 2D digital imaging was performed. FINDINGS: No acute fracture or dislocation is present. The joint spaces are well maintained. There may be mil d joint space narrowing and periarticular spurring at the 1st metatarsophalangeal joint. The soft ti ssues are unremarkable. IMPRESSION: No acute abnormality.
== END 2019-09-15 16:50 ==
PROVIDERS: PCP Emergency Medicine; Visit Provider Internal Medicine
DX: M79.671 Pain in right foot (principal); M19.071 Primary osteoarthritis, right ankle and foot; M79.673 Pain in unspecified foot; R50.9 Fever, unspecified; Z90.81 Acquired absence of spleen; R10.9 Unspecified abdominal pain
CPT/HCPCS: 36415; 80053; 86704; 86706; 86803; 87340; 73630; 84443; 85025

== ENCOUNTER → 2019-12-19 14:33 | Outpatient (CLI) | payer MEDICARE, BC, SELFPAY ==
--- NOTE | 2019-12-19 13:44 | DI.RAD_ITS ---
EXAM: XR WRIST RT COMPL NAVICULAR CLINICAL HISTORY: Right wrist sprain, extension injury, S63.501A TECHNIQUE: COMPARISON: No exams were available for comparison FINDINGS: Four views were obtained. There is no evidence of acute fracture. Bony alignment appears within nor mal limits. There are degenerative changes most marked at the greater multangular 1st metacarpal partha nt. IMPRESSION:
== END ==
PROVIDERS: PCP Emergency Medicine; Visit Provider Nurse Practitioner Family
DX: M25.531 Pain in right wrist (principal); S63.501A Unspecified sprain of right wrist, initial encounter; M18.11 Unilateral primary osteoarthritis of first carpometacarpal joint, right hand
CPT/HCPCS: 73110

== ENCOUNTER 2019-12-29 15:25 | Outpatient (CLI) | payer MEDICARE, BC, SELFPAY ==
--- NOTE | 2019-12-29 14:26 | DI.RAD_ITS ---
EXAM: XR WRIST RT COMPLETE INDICATION: F/U XRAY, INJURY OF RT WRIST, [id number]. COMPARISON: No exams were available for comparison TECHNIQUE: 2D digital imaging was performed. FINDINGS: No fracture or dislocation is seen. Degenerative changes are again noted, greatest at the 1st carpom etacarpal joint. IMPRESSION: No acute abnormality.
== END 2019-12-29 15:45 ==
PROVIDERS: PCP Emergency Medicine; Visit Provider Family Medicine
DX: M25.531 Pain in right wrist (principal); S69.91XA Unspecified injury of right wrist, hand and finger(s), initial encounter; M18.11 Unilateral primary osteoarthritis of first carpometacarpal joint, right hand
CPT/HCPCS: 73110

== ENCOUNTER → 2020-01-21 01:25 | Outpatient (CLI) | payer MEDICARE, BC, SELFPAY ==
--- NOTE | 2020-01-21 15:45 | DI.MRI_ITS ---
EXAM: MR UPPER JOINT RT WO CLINICAL HISTORY: TEAR OF TRIANGULAR FIBROCARTILAGE COMPLEX RT WRIST, S63.732S. TECHNIQUE: Multiplanar multisequence MRI was performed. CONTRAST MATERIAL: IV Contrast: 0 mL of Dotarem contrast administered. COMPARISON: X-ray right wrist 12/29/2019 FINDINGS: Bones: There is edema seen within the pisiform. There appears to be an oblique lucency coursing thro ugh the pisiform suspicious for a nondisplaced fracture. Subchondral cysts and associated subchondra l edema is seen at the distal radius at the distal radial ulnar joint. There is mild marrow edema se en in the lunate and scaphoid. No fracture is identified. Mild subchondral edema is seen in the uln ar styloid process. The radiocarpal, intercarpal and carpometacarpal joint spaces are preserved. The re are no erosive changes seen. There is no appreciable joint effusion. There is mild marrow edema se en at the ulnar aspect of the base of the 1st metacarpal bone. Ligaments: There is increased signal seen of the TFCC at its ulnar attachment suspicious for a tear. There is increased signal seen on the T2 weighted images within this scapholunate ligament posterior ly. This may represent a partial tear. Musculoskeletal Structures: The visualized flexor and extensor tendons are intact. There is no muscle atrophy. There are no muscular strains seen. The visualized median nerve appears to be within normal limits and is normally located within the car pal tunnel. There is a 1.0 x 0.5 cm ganglion cyst associated with the pisotriquetral joint. IMPRESSION: 1. Findings suspicious for a tear of the triangular fibrocartilage. 2. There appears to be an oblique lucency coursing through the pisiform with associated marrow edema suspicious for a fracture. 3. 1.0 x 0.5 cm ganglion cyst associated with the pisotriquetral joint. DATA REPOSITORY:
== END ==
PROVIDERS: PCP Emergency Medicine; Visit Provider Orthopaedic Surgery
DX: S63.591A Other specified sprain of right wrist, initial encounter (principal); M67.431 Ganglion, right wrist; R60.0 Localized edema; M25.831 Other specified joint disorders, right wrist
CPT/HCPCS: 73221

== ENCOUNTER 2020-07-13 13:35 | Emergency (ER) | payer MEDICARE, BC, SELFPAY ==
[2020-07-13 13:44] VITALS: BP 151/91; PULSE 77; RESP 16; TEMP 36.3; O2SAT 99
--- NOTE | 2020-07-13 13:45 | DI.RAD_ITS ---
EXAM: XR HAND RT COMPLETE CLINICAL HISTORY: pain after 'popping' TECHNIQUE: COMPARISON: No exams were available for comparison FINDINGS: Views were obtained. There are mild degenerative changes of the carpus, the MCP joints, and the IP j oints. No acute fracture seen. IMPRESSION: RADIATION DOSE DELIVERED: Total DLP
--- NOTE | 2020-07-13 13:57 | W.ED.GENAD ---
Discharge Plan Disposition Patient Disposition: HOME Condition: Improving Discharge Details Chief Complaint: Orthopedic Clinical Impression: Injury of thumb, right Primary Care Provider: Nithin Abreu ED Provider: Anmol Mcduffie Home Meds and New Rx's Prescriptions: New tramadol 100 mg tablet 100 mg PO TID PRN (Reason: pain) Qty: 10 RF: 0 Continued ascorbic acid (vitamin C) 500 mg capsule, extended release 1,000 mg PO DAILY RF: 0 bisacodyl [Dulcolax (bisacodyl)] 5 mg tablet,delayed release (DR/EC) 5 mg PO ONCE Qty: 4 RF: 0 polyethylene glycol 3350 17 gram powder in packet 255 g PO DAILY Qty: 15 RF: 0 cholecalciferol (vitamin D3) 1,000 UNIT capsule 1 tab PO DAILY RF: 0 Fish Oil 500 MG capsule 1 tab PO DAILY RF: 0 Probiotic 1 EACH capsule, sprinkle 1 ea PO RF: 0 biotin 10 MG tablet 10 mg PO DAILY RF: 0 cyanocobalamin (vitamin B-12) [Vitamin B-12] 1,000 MCG tablet 1,000 mcg PO DAILY RF: 0 Ostera 1 EACH tablet 1 ea PO DAILY RF: 0 coenzyme Q10 [Co Q-10] 10 MG capsule 10 mg PO DAILY RF: 0 riboflavin (vitamin B2) 50 MG tablet 50 mg PO DAILY RF: 0 dihydroergotamine [Migranal] 1 ML spray,non-aerosol 0.5 mg NS PRN Qty: 1 RF: 0 loratadine-pseudoephedrine [Claritin-D 24 Hour] 10-240 mg tablet extended release 24 hr 1 tab PO DAILY PRNRF: 0 doxycycline monohydrate 100 mg tablet 200 mg PO ONCE Qty: 2 RF: 0 ibuprofen 600 mg tablet 600 mg PO QID PRN (Reason: pain) Qty: 120 RF: 0 Discharge Instructions Additional Instructions: Elevate the hand above the level of the heart to reduce pain and swelling. Recommend the use Tylenol as needed for pain with tramadol as needed for severe/breakthrough pain. Follow-up in in the [facility] as we discussed and to whom I have asked our care management team to place a referral. Return to the ER for any acute concerns. Our radiology department will upload your x-ray images to the [facility] today. Medical Decision Making 69-year-old right-handed female states that she reached into her grocery bag to lift a package of mozzarella cheese with supination, and felt a pop in her right hand and thumb area. She has had severe persistent pain since that time. She is tender along the volar surface of the base of the thumb and can initiate movement of the digits including flexion of the thumb IP joint, but it provokes significant pain. In January of this year she had an MRI of the affected extremity that revealed: increased signal seen of the TFCC at its ulnar attachment suspicious for a tear. There is increased signal seen on the T2 weighted images within this scapholunate ligament posteriorly. This may represent a partial tear. For this she was seen at the [facility]. Referred for x-ray today which shows degenerative changes but no other acute findings. I did discuss the case with Dr. Pabon from orthopedic surgery. He recommends high-dose anti-inflammatories, immobilization, follow-up in orthopedic clinic. I placed the patient in a plaster thumb spica. The patient states she has seen Dr. Zhao of the [facility] and would prefer to follow-up with him. HPI General Mode of arrival: ambulatory. Date/Time Provider Initiated Documentation: 07/13/20 13:40. Limitations to Documentation: no limitations. Information obtained by: patient. History of Present Illness 69 year old F presents to the emergency department with the chief complaint of Right hand pain after popping sensation while lifting a bar of cheese, described as moderate, Quality is described as dull, and is localized to the right and upper extremity. Patient reports no radiation. Patient started experiencing this hour(s) and it has been constant. Rest improves symptom(s), Movement worsens symptoms . Patient notes denies fever/chills and rash. Patient did receive the following treatments prior to arrival, none Related Data Home Medications Medication Instructions Recorded Confirmed Fish Oil 1 tab PO DAILY 02/20/13 12/29/19 cholecalciferol (vitamin D3) 1 tab PO DAILY 02/20/13 12/29/19 Probiotic 1 ea PO cap.sprink 08/13/15 12/29/19 Ostera 1 ea PO DAILY 01/03/17 12/29/19 biotin 10 mg PO DAILY 01/03/17 12/29/19 cyanocobalamin (vitamin B-12) 1,000 mcg PO DAILY 01/03/17 12/29/19 [Vitamin B-12] coenzyme Q10 [Co Q-10] 10 mg PO DAILY 05/29/18 12/29/19 dihydroergotamine [Migranal] 0.5 mg NS PRN #1 spray 05/29/18 12/29/19 riboflavin (vitamin B2) 50 mg PO DAILY 05/29/18 12/29/19 ibuprofen 600 mg PO QID PRN #120 tab 08/13/18 12/29/19 loratadine-pseudoephedrine ER 10 1 tab PO DAILY PRN tab-cap 09/06/18 12/29/19 mg-240 mg tablet,extended [id number] ascorbic acid (vitamin C) 500 mg 1,000 mg PO DAILY cap 02/26/19 12/29/19 capsule,extended release bisacodyl 5 mg tablet,delayed 5 mg PO ONCE #4 tab 09/05/19 12/29/19 release polyethylene glycol 3350 17 gram 255 g PO DAILY #15 each 09/05/19 12/29/19 oral powder packet doxycycline monohydrate 100 mg 200 mg PO ONCE #2 tab 04/27/20 tablet tramadol 100 mg PO TID PRN #10 tab 07/13/20 Previous Rx's Medication Instructions Recorded ibuprofen 600 mg PO QID PRN #120 tab 08/13/18 bisacodyl 5 mg tablet,delayed 5 mg PO ONCE #4 tab 09/05/19 release polyethylene glycol 3350 17 gram 255 g PO DAILY #15 each 09/05/19 oral powder packet doxycycline monohydrate 100 mg 200 mg PO ONCE #2 tab 04/27/20 tablet tramadol 100 mg PO TID PRN #10 tab 07/13/20 Allergies Allergy/AdvReac Type Severity Reaction Status Date / Time Iodine and Iodide Containing AdvReac Mild cough Verified 07/13/20 13:49 Produc General Stated Complaint: Orthopedic HARIKA: 3 Review of Systems Narrative: 6 systems reviewed and otherwise negative. No numbness or tingling [facility] Medical History Acute respiratory failure following trauma and surgery (Acute) Arthritis (Acute) Chest injury (Acute) Closed fracture at wrist or hand level (Acute) Depressive disorder (Acute) Dyspepsia and disorder of function of stomach (Acute) Fatigue (Acute) Hyperlipidemia (Acute) Lung contusion (Acute) Meningitis (Acute) Migraine (Acute) Multiple trauma (Acute 01/03/17) 10/03. Horse riding injury. Multiple rib fx, ruptured spleen, left shoulder disloc. 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 Initial dose 2015 H/O ventral hernia repair (Acute 04/23/18) Her symptoms are complex and it is unclear if this is the result of the trauma or some other problem. It is basically possible her herpetic situation could have affected her sympathetic system in her bowels as well. She needs a GI consult and I have ordered this. No other treatment and will follow up with her later. Social History Smoking/Tobacco Use Status: Former Tobacco Use Alcohol Intake: current Alcohol Intake frequency: a few times a week Drug use: Never Substance use type: does not use Duration: 15-30 minutes/day Frequency: 5-6 times per week Do you feel safe at home: Yes Do you feel safe in your relationship?: Yes Exam Narrative Exam Narrative: GEN: awake, alert, oriented 3. Pleasant, well groomed, interactive. HEAD: Normocephalic, atraumatic Chest: Normal respiratory effort, no distress EXT: Right hand with diffuse tenderness of the thumb and palmar surface. Distal sensation is intact. Patient is able to initiate all range of motion. She does not tolerate passive examination. Neuro: Grossly normal neurologic exam, conversant, interactive. Psych: Speech fluent, thoughts congruent, affect normal Course Vital Signs Vital signs: Vital Signs Temperature 36.3 C L 07/13/20 13:44 Pulse 77 07/13/20 13:44 Respiratory Rate 16 07/13/20 13:44 Blood Pressure 151/91 H 07/13/20 13:44 Pulse Oximetry 99 07/13/20 13:44 Temperature 36.3 C L 07/13/20 13:44 Temperature Source Tympanic 07/13/20 13:44 Pulse 77 07/13/20 13:44 Respiratory Rate 16 07/13/20 13:44 Respiratory Effort Non-Labored 07/13/20 13:48 Blood Pressure 151/91 H 07/13/20 13:44 Blood Pressure Position Sitting 07/13/20 13:44 Pulse Oximetry 99 07/13/20 13:44 Oxygen Delivery Method Room Air 07/13/20 13:44 Oxygen Flow Rate 0 07/13/20 13:44 Pain Level 7 07/13/20 13:44 Procedures Orthopedic Splinting/Casting Injury #1: Side: right Upper Extremity Injury Location: hand Upper Extremity Immobilizer: thumb spica
--- NOTE | 2020-07-13 16:00 | NUR.NOTE ---
Referral, note and x/r reading faxed to [facility]. Dr Hooks.Nursing Note:
--- NOTE | 2020-07-14 09:30 | CMPROGNOTE_ITS ---
- If Service Date Differs Date of service: 07/14/20 Time of Service: 09:30 Care Management Progress Note CM faxed referral to Dr. Zhao at the [facility].
== END 2020-07-13 15:33 | disposition home or self-care (01) ==
PROVIDERS: Emergency Provider Emergency Medicine; PCP Emergency Medicine
DX: M79.641 Pain in right hand (principal); M18.9 Osteoarthritis of first carpometacarpal joint, unspecified; X50.0XXA Overexertion from strenuous movement or load, initial encounter
CPT/HCPCS: 29125; 99283; 73130

== ENCOUNTER 2020-10-26 02:30 | Outpatient (CLI) | payer MEDICARE, BC, SELFPAY ==
--- NOTE | 2020-10-26 15:45 | DI.MRI_ITS ---
EXAM: MR LOWER JOINT LT WO CLINICAL HISTORY: LT KNEE PAIN,M25.562,? MEDIAL MENISCAL TEAR TECHNIQUE: Multiplanar multisequence MRI of the knee was performed. COMPARISON: No exams were available for comparison FINDINGS: EFFUSION: There is a small amount of increased joint fluid. No large joint effusion. There is no Ba ker cyst in the popliteal fossa. MARROW:There is no evidence of fracture. No bone lesions. PATELLOFEMORAL COMPARTMENT: The quadriceps tendon is intact. The patellar ligament is intact. There is significant thinning of the retropatellar cartilage which is full thickness thinning over th e medial facet with focus of subarticular edema and small developing degenerative cyst at this level. Lesser amount of thinning is seen over the lateral facet. No true osteochondral defect at this lida e.There is no intraosseous signal to suggest recent patellar dislocation. There are no patellar retin acular tears. CRUCIATE LIGAMENTS: The anterior cruciate ligament is intact.The posterior cruciate ligament is intac t. MEDIAL COMPARTMENT/MEDIAL MENISCUS: There is an oblique tear in the posterior horn of the medial meni scus.There appears to be a meniscal fragment in the intercondylar notch. There is hyaline cartilage thinning and degenerative subarticular edema in the overlying weight-bearing surface of the posterior medial femoral condyle. Mild extrusion extrusion of the anterior horn noted. Marginal osteophytes evident.. MEDIAL COLLATERAL LIGAMENT: Intact LATERAL COMPARTMENT/LATERAL MENISCUS: There is no obvious tear of the lateral meniscus. However, the re is focal hyaline cartilage denudation over the weight-bearing surface posteriorly. There is no fo rmed osteochondral defect. No subarticular edema in the lateral femoral condyle and tibial plateau. ILIOTIBIAL BAND: Intact LATERAL COLLATERAL LIGAMENT COMPLEX: The fibular collateral ligament is intact. The biceps femoris t endon is intact.Popliteus muscle and tendon are intact. IMPRESSION: 1. There is tear of the posterior horn of the medial meniscus there appears to be a meniscal fragment in the posterior intercondylar notch. There is significant [place] cartilage degenerative change a nd subarticular edema in the medial femoral condyle over this level. Also marginal osteophytes. No obvious tears of the lateral meniscus and lesser degenerative changes in the lateral compartment. 2. There is significant thinning of the retropatellar cartilage which is most prominent over the medi al facet where there is full-thickness thinning and a developing degenerative subarticular cyst in th e posterior patella at this level. 3. There are no cruciate or collateral ligament tears. 4. Small joint effusion. No Miller cyst. DATA REPOSITORY:
== END 2020-10-26 02:50 ==
PROVIDERS: PCP Emergency Medicine; Visit Provider Orthopaedic Surgery
DX: S83.242A Other tear of medial meniscus, current injury, left knee, initial encounter (principal); M17.12 Unilateral primary osteoarthritis, left knee; M25.462 Effusion, left knee
CPT/HCPCS: 73721

== ENCOUNTER 2020-11-18 19:49 | Outpatient (CLI) | payer MEDICARE, BC, SELFPAY ==
--- NOTE | 2020-11-18 13:43 | DI.RAD_ITS ---
EXAM: XR FOOT LT COMPLETE CLINICAL HISTORY: Trauma to door frame vs 5th Lt toe, lt toe pain, m79.675. TECHNIQUE: 2D digital imaging was performed. COMPARISON: No exams were available for comparison FINDINGS: There is no evidence of fracture or diastasis of the Lisfranc joint. Ossified density off the latera l base of the 5th metatarsal is noted but this does not have the typical appearance of an acute fract ure fragment. This measures approximately 8 x 3 millimeters. Correlation with site of tenderness is recommended. There are no fractures seen more distally in the 5th metatarsal nor in the phalanges. IMPRESSION: DATA REPOSITORY: RADIATION DOSE DELIVERED:
== END 2020-11-18 20:09 ==
PROVIDERS: PCP Emergency Medicine; Visit Provider Nurse Practitioner Family
DX: M79.675 Pain in left toe(s) (principal)
CPT/HCPCS: 73630

== ENCOUNTER 2021-05-18 07:29 | Outpatient (RCR) | payer MEDICARE, BC, SELFPAY ==
--- NOTE | 2021-05-18 11:15 | HOLTER_ITS ---
APPROVED REPORT Conclusion There is a 48-hour monitor ordered for indication of syncope. The patient was in normal sinus rhythm for the majority of the recording with an average heart rate o f 73 bpm. There were no episodes of ventricular tachycardia and rare PVCs. There were 22 episodes of supraventricular tachycardia the longest lasting 13 beats. None of these w ere reported as symptomatic. There were rare PACs. There were no episodes of atrial fibrillation, no pauses greater than 3 seconds and no evidence of hi gh degree heart block. There was 1 patient reported event associated with PACs and PVCs.
== END 2021-05-18 23:59 | disposition home or self-care (01) ==
LOC: RT 07:29
PROVIDERS: PCP Emergency Medicine; Visit Provider Emergency Medicine
DX: R55 Syncope and collapse (principal); I47.1 Supraventricular tachycardia; I49.1 Atrial premature depolarization
CPT/HCPCS: 93225; 93226

== ENCOUNTER 2021-05-20 14:06 | Outpatient (CLI) | payer MEDICARE, BC, SELFPAY ==
[2021-05-20 14:56] LABS: Abs Immature Grans 0.01 10^3/uL (0.0-0.06); Absolute Basophil Count 0.07 10^3/uL (0.0-0.2); Absolute Eosinophil Count 0.15 10^3/uL (0.0-0.7); Absolute Lymphocyte Count 3.11 10^3/uL (1.2-3.4); Absolute Monocyte Count 0.58 10^3/uL (0.1-0.8); Absolute Neutrophil Count 3.24 10^3/uL (1.2-6.7); Eosinophils % 2.1; HCT 46.7 % (36.0-46.0); HGB 15.3 g/dL (11.2-15.7); Immature Grans % 0.1; Lymphocytes % 43.4; MCH 29.5 pg (27.0-33.0); MCHC 32.8 % (32.0-36.0); MCV 90.2 fL (80-95); MPV 9.5 fL (8.0-11.0); Monocytes % 8.1; Neutrophils % 45.3; Nucleated RBC 0 %; Platelet Count 404 10^3/uL (130-400); RBC 5.18 10^6/uL (3.93-5.22); RDW 13.6 % (11.7-14.6); RDW-SD 45.4 fL; WBC 7.16 10^3/uL (4.4-10.8)
[2021-05-20 15:47] LABS: ALT 28 U/L (14-59); AST 14 U/L (15-37); Albumin 3.9 g/dL (3.4-5.0); Alkaline Phosphatase 102 U/L (46-116); BUN 17 mg/dL (7-18); Bilirubin, Total 0.4 mg/dL (0.2-1.0); CREATININE 1.1 mg/dL (0.55-1.02); Calcium 9.7 mg/dL (8.5-10.1); Chloride 102 mmol/L (98-107); Estimated GFR 49.25 (mL/min/1.73m2); Glucose 94 mg/dL (74-106); Potassium 4.6 mmol/L (3.5-5.1); Sodium 140 mmol/L (136-145); TSH 1.97 uIU/mL (0.36-3.74); Total Protein 7.5 g/dL (6.4-8.2)
== END 2021-05-20 14:07 | disposition home or self-care (01) ==
LOC: LBO 14:27
PROVIDERS: PCP Emergency Medicine; Visit Provider Emergency Medicine
DX: R55 Syncope and collapse (principal); E03.9 Hypothyroidism, unspecified
CPT/HCPCS: 36415; 80053; 84443; 85025; 93226

== ENCOUNTER 2021-05-24 09:00 | Outpatient (CLI) | payer MEDICARE, BC, SELFPAY | END 2021-05-24 09:01 | LOC: CARDO 07-28 09:19 | PROVIDERS: PCP Emergency Medicine; Referring Provider Physician Assistant; Visit Provider Internal Medicine Cardiovascular Disease | DX: R55 Syncope and collapse (principal); I47.1 Supraventricular tachycardia; I49.1 Atrial premature depolarization | CPT/HCPCS: 93227 ==

== ENCOUNTER 2021-05-30 01:16 | Outpatient (CLI) | payer MEDICARE, BC, SELFPAY ==
--- NOTE | 2021-05-30 07:00 | DI.NM_ITS ---
APPROVED REPORT Exam: Exercise Treadmill Patient Location: Out-Patient Room/Bed: Stress Nurse: Karin Cortez RN Ordering Provider:ECTOR YEUNG, Contact Number: [phone] BMI: 27.02 Baseline Rhythm: Sinus Rhythm Comment: Flipped T waves lead III Indications: syncope, SOB Medical History Medical History: Hyperlipidemia, fatigue, arthritis, migraines, depression, 2015 significant horse ri ding injury Cardiac Medications: None Allergies: Iodine Cardiac Risk Factors: Hyperlipidemia, smoker (former), family hx Previous Cardiac Procedures: None Pretest Chest Pain Characteristics: None Exercise History: Sedentary Physical Disabilities: None Lung Sounds: Clear to auscultation Heart Sounds: Regular Stress Test Details Test: Exercise stress testing was performed using a Chandra protocol. Nuclear Acquisition: Rest Tc-99m/Stress Tc-99m 1 day Rest Isotope: Tc-99m Sestamibi. Dose: 12.0 Date: 05/30/2021 Injection Time: 0925 Stress Isotope: Tc-99m Sestamibi. Dose: 38.0 Date: 05/30/2021 Injection Time: 1125 HR Resting HR Supine: 66 bpm Max Heart Rate (APMHR): 151.793107 bpm Resting HR Standin/82 bpm Target HR (85% APMHR): 128.392605 bpm Max HR Achieved: 150 bpm % of APMHR: 99.34 Recovery HR: 92 bpm HR response to stress: Normal HR response to stress BP Resting BP Supine: 154/82 mmHg Resting BP Standin/84 mmHg Max BP: 202/76 mmHg Recovery BP: 184/78 mmHg BP response to stress: Abnormal hypertensive response to stress. ECG Resting ECG: Sinus Rhythm Ectopy: Occasional PVCs Comment: Flipped T waves lead III Stress ECG: Sinus Tachycardia ST Change: No significant ST segment changes noted Arrhythmia: Frequent multifocal PVCs, couplet, 3 beat run ventricular tachycardia, rare PAC Comment: T waves lead III upright by after 1:22 of exercise. Recovery ECG: Sinus Rhythm Recovery ST Change: No significant ST segment changes noted Recovery Arrhythmia: Occasional PACs, occasional multifocal PVCs Clinical Reason for Termination: Fatigue, Dyspnea Stress Symptoms: General Fatigue, Dyspnea, Lightheaded Exercise duration: 7 min12 sec Highest Stage Reached: Stage 3: 3.4 mph at 14% grade. Exercise capacity: 8.91 METs Rate Pressure Product: 90996 Stress ECG Conclusion 1. The patient exercised for 7 minutes (9 METS). Exercise was stopped due to fatigue. 2. Heart rate and blood pressure augmented appropriately. 3. There is no evidence of ischemia on the ECG portion of the exam. Stress Test Summary STAGE Time (mins) Speed (mph) Grade (%) HR BP SYMPTOMS METS Supine 66 154/82 Standing 76 160/84 SpO2 98% 1 3 1.7 10 111 164/80 SpO2 98% 4.6 2 6 2.5 12 135 SpO2 97% 7 3 9 3.4 14 148 SpO2 97%, moderate SOB, lightheaded 10.2 1 min recovery 128 202/76 SpO2 98%, symptoms resolved 3 min recovery 98 184/78 6 min recovery 92 156/78 MPI Conclusion The ejection fraction was 43% with stress. There were no wall motion abnormalities. There is no evidence of ischemia on the imaging portion of the exam. This represents a normal SPECT stress test. Radiologist Interpretation Radiologist agrees with Knapsack Sprayer's Interpretation. Radiologist Interpretation by: Jeanette Horner MD Interpretation Date/Time: 05/31/2021 08:50:24
== END 2021-05-30 01:36 ==
PROVIDERS: PCP Emergency Medicine; Visit Provider Emergency Medicine
DX: R06.02 Shortness of breath (principal); R55 Syncope and collapse; I49.1 Atrial premature depolarization; I49.3 Ventricular premature depolarization; E78.5 Hyperlipidemia, unspecified; Z82.49 Family history of ischemic heart disease and other diseases of the circulatory system; Z87.891 Personal history of nicotine dependence
CPT/HCPCS: 78452; 93016; 93018; 93017

== ENCOUNTER → 2021-06-21 13:38 | Outpatient (BNVA) | payer MEDICARE, BC, SELFPAY | PROVIDERS: PCP Emergency Medicine; Referring Provider Emergency Medicine; Visit Provider Internal Medicine Cardiovascular Disease | DX: I47.1 Supraventricular tachycardia (principal); R55 Syncope and collapse | CPT/HCPCS: 93005; 99204; 99215 ==

== ENCOUNTER 2021-07-07 15:59 | Outpatient (REF) | payer MEDICARE, BC, SELFPAY ==
--- NOTE | 2021-07-07 14:10 | PAPFT_PTH ---
PATIENT: Elizabeth Flores LOC: [facility] U#:[id number] AGE/SX: 70/F ROOM: RE07/07/[address]: Viktoria Amor APRN : 1950 BED: DIS: 07/07/2021 SPEC #: [id number] RECD: 07/08/21 13:12 STATUS: MEGHANA REQ #: [id number] SARA: 07/07/21 14:[address]: Viktoria Amor DEPT: [facility] Cytology RECD BY: Yajaira Fisher ENTERED: 07/08/21 13:12 SP TYPE: PAPFT OTHR DR: Nithin Abreu, DO Tissues: 1 - CX/ENDOCX FOR PAP SMEARS Procedures: PAP THIN PREP/UVM Screening HPV DNA PROBE Comments: [id number] (CHLAMYDIA/GC)
[2021-07-11 15:01] LABS: Chlamydia Result Negative (Negative); GC Result Negative (Negative)
== END 2021-07-07 16:00 | disposition home or self-care (01) ==
LOC: LBN 15:59
PROVIDERS: PCP Emergency Medicine
DX: Z12.4 Encounter for screening for malignant neoplasm of cervix (principal); Z11.3 Encounter for screening for infections with a predominantly sexual mode of transmission; Z11.51 Encounter for screening for human papillomavirus (HPV); Z01.419 Encounter for gynecological examination (general) (routine) without abnormal findings
CPT/HCPCS: 87491; 87591; 88142; 87624

== ENCOUNTER 2021-07-19 03:44 | Outpatient (CLI) | payer MEDICARE, BC, SELFPAY ==
[2021-07-19 11:50] LABS: Calculated LDL 194 mg/dL (<100); Cholesterol 290 mg/dL (<200); HDL Cholesterol 77 mg/dL (40-60); Triglyceride 98 mg/dL (<150)
[2021-07-19 15:14] LABS: ALT 24 U/L (14-59); AST 17 U/L (15-37); Albumin 3.9 g/dL (3.4-5.0); Alkaline Phosphatase 91 U/L (46-116); Bilirubin, Direct 0.1 mg/dL (0.0-0.2); Bilirubin, Total 0.5 mg/dL (0.2-1.0); Total Protein 7.8 g/dL (6.4-8.2)
[2021-07-21 12:36] LABS: Tissue Transglutaminase Ab IgA <1.2 U/mL
== END 2021-07-19 03:45 | disposition home or self-care (01) ==
LOC: LBO 03:44
PROVIDERS: PCP Emergency Medicine; Visit Provider Emergency Medicine
DX: E78.5 Hyperlipidemia, unspecified (principal)
CPT/HCPCS: 36415; 80061; 80076; 83516

== ENCOUNTER 2021-07-20 02:55 | Outpatient (CLI) | payer MEDICARE, BC, SELFPAY ==
[2021-07-20 12:11] LABS: HGB 15.6 g/dL (11.2-15.7); MCH 29.1 pg (27.0-33.0); MCHC 32.5 % (32.0-36.0); MCV 89.4 fL (80-95); MPV 10.4 fL (8.0-11.0); Platelet Count 401 10^3/uL (130-400); RBC 5.37 10^6/uL (3.93-5.22); RDW 13.9 % (11.7-14.6); RDW-SD 45.6 fL; WBC 7.79 10^3/uL (4.4-10.8)
== END 2021-07-20 02:56 | disposition home or self-care (01) ==
LOC: LBO 02:55
PROVIDERS: PCP Emergency Medicine; Visit Provider Internal Medicine Gastroenterology
DX: R19.4 Change in bowel habit (principal)
CPT/HCPCS: 85027

== ENCOUNTER 2021-08-10 01:51 | Outpatient (CLI) | payer MEDICARE, BC, SELFPAY ==
--- NOTE | 2021-08-10 14:11 | DI.US_ITS ---
APPROVED REPORT EXAM: Comprehensive 2D, Doppler, and color-flow Echocardiogram Patient Location: Out-Patient Assistant Center Director: Amina Khan RDCS (AE) Indications: Syncope Other Information Study Quality: Good Conclusion Normal left ventricular wall thickness and chamber size. Estimated ejection fraction is 60%. There are no segmental wall motion abnormalities Normal right ventricular size and systolic function Both atria are normal in size There are no significant valvular abnormalities Estimated right ventricular systolic pressure is normal at 20 mmHg Wall motion Left Ventricle The left ventricle is normal size. The left ventricular systolic function is normal. The left ventric ular ejection fraction is within the normal range. There is normal left ventricular wall thickness. T here is normal LV segmental wall motion. There is no ventricular septal defect visualized. LVEF is 60 %. Right Ventricle The right ventricle is normal size. The right ventricular systolic function is normal. The RVSP is 20 .5 mmHg. Atria The left atrium size is normal. The right atrium size is normal. The interatrial septum is intact wit h no evidence for an atrial septal defect. Aortic Valve The aortic valve is normal in structure. Aortic valve is trileaflet. There is no aortic valvular sten osis. No aortic regurgitation is present. Mitral Valve The mitral valve is normal in structure. No evidence of mitral valve stenosis. Trace to mild mitral r egurgitation. Tricuspid Valve The tricuspid valve is normal in structure. There is no tricuspid valve stenosis. Trace tricuspid reg urgitation. Unable to assess PA pressure. Pulmonic Valve The pulmonary valve is normal in structure. There is no pulmonic valvular stenosis. Trace pulmonic re gurgitation. Great Vessels The aortic root is normal in size. The ascending aorta is normal in size. Aortic arch is normal in ca liber. IVC is normal in size and collapses >50% with inspiration. Pericardium There is no pericardial effusion. 2D Dimensions IVSD d PLAX 0.91 cm F: 0.6-1.0 LV Vol A2C d MOD 88.1 mL LVPW d PLAX 0.94 cm F: 0.6 - 1.0 LV Vol A4C d MOD 81.5 mL LVID d PLAX 4.78 cm F: 3.8 - 5.2 LA vol/ BSA A2C s A-L 26.5 mL/m2 LVDs 3.20 cm F: 2.2 - 3.5 LA vol/ BSA A4C s A-L 31.1 mL/m2 Ao Root d 2.91 cm F: 2.7 - 3.3 LA Vol/ BSA Biplane s A-L 29.9 mL/m2 RA Area A4C 14.98 cm2 LA Area A4C s MOD 20.31 cm2 RA Vol/ BSA A4C s A-L 19.0 mL/m2 LA Area A2C s MOD 18.02 cm2 Ao Asc Diam d 3.37 cm F: 2.3 - 3.1 LV EF A4C MOD 60.2 % LV EF Teichholz 61.3 % LV EF A2C MOD 58.7 % LVEF (Jolly's) 59.58 % F: 54 - 74 LV EF Biplane MOD 59.6 % LV Volume 65.03 mL F: 46 - 106 SV 51.65 mL LV Volume Index 32.51 mL/m2 F: 29 - 61 SV Index 25.85 mL/m2 LV Vol Biplane MOD 86.7 mL FS 32.90 % M-Mode TAPSE 2.58 cm (M/F) >1.7 LV Diastology MV E' medial 0.080 (>0.07 m/s) E/A Ratio 1.3 LV E/e MED 8.10 (<14) MV E Vmax 0.65 (0.4-1.3 m/s) MV E' lateral 0.098 (>0.1 m/s) MV A Vmax 0.50 (0.4-1.3 m/s) LV E/e LAT 6.65 (<14) MV E/A Ratio 1.29 MV E/E' medial 8.13 MV E/E' lateral 6.67 Aortic Valve LVOT Area 2.86 cm2 AoV Area Vmax 2.30 cm2 LVOT Vmax 0.96 m/s AoV Area/ BSA (Vmax) 1.15 cm2/m2 LVOT Mean Jono. 0.65 m/s ADELFO Mean Jono. 2.29 cm2 LVOT Peak Grad 3.7 mmHg ADELFO Mean Jono. Index 1.14 cm2/m2 LVOT Mean Grad 2.0 mmHg LVOT VTI 0.150 m LVOT Diam s 1.90 cm AoV Vmax 1.19 m/s Velocity Ratio 0.80 AoV Mean Jono. 0.81 m/s AoV Peak Grad 5.6 mmHg LVOT SV 42.96 mL AoV Mean Grad 3.0 mmHg AoV VTI 0.259 m AoV Area VTI 1.66 cm2 AoV Area/ BSA (VTI) 0.83 cm/m2 Mitral Valve MV DT 224 (160-240 msec) MV PHT 65 msec MV Area PHT 3.39 cm2 MV VTI 0.225 m MV VTI Annulus 0.228 m MV Area VTI 1.94 (4.0-6.0 cm2) Pulmonary Valve PV Vmax 0.96 (0.5-1.5 m/s) RVOT Peak Gr. 1.95 mmHg PV Peak Grad 3.7 mmHg RVOT Mean Gr. 0.95 mmHg PV Mean Grad 2.0 mmHg RVOT VTI 0.149 m PV VTI 0.200 m RVOT Vmax 0.70 m/s Tricuspid Valve TR Peak Grad 17.4 mmHg TR Vmax 2.09 m/s RA Pressure 3.00 mmHg RVSP (TR) 20.5 mmHg
== END 2021-08-10 02:11 ==
PROVIDERS: PCP Emergency Medicine; Visit Provider Emergency Medicine
DX: R55 Syncope and collapse (principal)
CPT/HCPCS: 93306

== ENCOUNTER → 2021-08-15 11:03 | Outpatient (BNVA) | payer MEDICARE, BC, SELFPAY | PROVIDERS: PCP Emergency Medicine; Referring Provider Emergency Medicine; Visit Provider Internal Medicine Cardiovascular Disease | DX: I47.1 Supraventricular tachycardia (principal); E78.5 Hyperlipidemia, unspecified | CPT/HCPCS: 99212; 99442 ==

== ENCOUNTER 2021-11-15 02:01 | Outpatient (CLI) | payer MEDICARE, BC, SELFPAY ==
--- NOTE | 2021-11-15 14:00 | DI.MAMMO_ITS ---
Exam(s) US AXILLA RT MG MAMMO DIAGNOSTIC BI EXAM: US AXILLA RT CLINICAL HISTORY: rt armpit lump, ? axillary lymph node,n63.31 TECHNIQUE: Ultrasound performed using standard protocol. COMPARISON: US US ECHOCARDIOGRAM from 08/10/2021 FINDINGS: Mammogram and right axilla ultrasound are interpreted in conjunction. The breasts are heterogeneously dense. No dominant mass or clumped microcalcification is identified in either breast. Ultrasound examination of the right axilla shows no evidence of a mass or lymphadenopathy. IMPRESSION: Negative mammogram and right axilla ultrasound. BI-RADS Cat 1 - Negative Breast Density - Category C - Heterogeneously dense DATA REPOSITORY:
== END 2021-11-15 02:21 ==
PROVIDERS: PCP Emergency Medicine; Visit Provider Emergency Medicine
DX: N63.31 Unspecified lump in axillary tail of the right breast (principal); M79.89 Other specified soft tissue disorders; R92.8 Other abnormal and inconclusive findings on diagnostic imaging of breast
CPT/HCPCS: 76642; 77062; 77066; G0279

== ENCOUNTER 2022-01-23 17:16 | Outpatient (REF) | payer MEDICARE, SELFPAY ==
[2022-01-25 12:58] LABS: COVID-19 RT-PCR UVMMC Result Positive (Negative)
== END 2022-01-23 17:17 | disposition home or self-care (01) ==
LOC: LBN 17:16
PROVIDERS: PCP Emergency Medicine; Visit Provider Family Medicine
DX: Z20.822 Contact with and (suspected) exposure to COVID-19 (principal)
CPT/HCPCS: U0003; U0005

== ENCOUNTER 2022-01-25 18:02 | Outpatient (CLI) | payer MEDICARE, SELFPAY ==
[2022-01-25 17:06] LABS: CREATININE 1.1 mg/dL (0.55-1.02)
== END 2022-01-25 18:03 | disposition home or self-care (01) ==
LOC: LBO 18:02
PROVIDERS: PCP Emergency Medicine; Visit Provider Family Medicine
DX: I10 Essential (primary) hypertension (principal)
CPT/HCPCS: 36415; 82565

== ENCOUNTER 2022-03-08 03:03 | Outpatient (CLI) | payer MEDICARE, SELFPAY ==
[2022-03-08 13:13] LABS: Calculated LDL 178 mg/dL (<100); Cholesterol 270 mg/dL (<200); HDL Cholesterol 74 mg/dL (40-60); Triglyceride 94 mg/dL (<150)
== END 2022-03-08 03:04 | disposition home or self-care (01) ==
LOC: LBO 03:03
PROVIDERS: PCP Emergency Medicine; Visit Provider Family Medicine
DX: E78.5 Hyperlipidemia, unspecified (principal)
CPT/HCPCS: 36415; 80061

== ENCOUNTER 2022-04-20 11:28 | Outpatient (CLI) | payer MEDICARE, SELFPAY ==
--- NOTE | 2022-04-20 11:15 | DI.RAD_ITS ---
Exam(s) XR HIP RT COMPLETE AP PELVIS EXAM: XR HIP RT COMPLETE AP PELVIS CLINICAL HISTORY: R hip pain. TECHNIQUE: 2D digital imaging was performed. COMPARISON: No exams were available for comparison FINDINGS: 3 views No evidence of pelvic nor hip fracture. There is moderate joint space narrowing of the right hip. S mall marginal osteophytes. No obvious narrowing of the left hip joint space. Bone density normal. No osseous lesions. IMPRESSION: Degenerative osteoarthritic changes in the right hip-moderate. DATA REPOSITORY: RADIATION DOSE DELIVERED:
--- NOTE | 2022-04-20 11:15 | DI.RAD_ITS ---
Exam(s) XR KNEE LT 3V AP,LAT,EMMANUEL EXAM: XR KNEE LT 3V AP,LAT,EMMANUEL CLINICAL HISTORY: L knee pain. TECHNIQUE: 2D digital imaging was performed. COMPARISON: No exams were available for comparison FINDINGS: 3 views IMPRESSION: DATA REPOSITORY: RADIATION DOSE DELIVERED:
== END 2022-04-20 11:29 | disposition home or self-care (01) ==
LOC: DIORS 11:28
PROVIDERS: PCP Family Medicine; Referring Provider Family Medicine; Visit Provider Physician Assistant
DX: M16.11 Unilateral primary osteoarthritis, right hip (principal); M17.12 Unilateral primary osteoarthritis, left knee
CPT/HCPCS: 73562; 99215; 73502

== ENCOUNTER → 2022-08-14 10:42 | Outpatient (BNVA) | payer MEDICARE, SELFPAY | PROVIDERS: PCP Family Medicine; Referring Provider Emergency Medicine; Visit Provider Internal Medicine Cardiovascular Disease | DX: I47.1 Supraventricular tachycardia (principal); E78.5 Hyperlipidemia, unspecified | CPT/HCPCS: 99213 ==

== ENCOUNTER 2022-09-29 14:01 | Outpatient (REF) | payer MEDICARE, SELFPAY | END 2022-09-29 14:02 | disposition home or self-care (01) | LOC: LBN 14:01 | PROVIDERS: PCP Family Medicine; Visit Provider Family Medicine | DX: R19.7 Diarrhea, unspecified (principal); R53.83 Other fatigue | CPT/HCPCS: 87329 ==

== ENCOUNTER 2022-10-04 18:26 | Outpatient (REF) | payer MEDICARE, SELFPAY ==
[2022-10-05 11:55] LABS: Campylobacter PCR Negative (Negative); Salmonella PCR Negative (Negative); Shiga Toxin PCR Negative (Negative); Shigella/Enteroinvasive Ecoli Negative (Negative)
== END 2022-10-04 18:27 | disposition home or self-care (01) ==
LOC: LBN 18:26
PROVIDERS: PCP Family Medicine; Visit Provider Family Medicine
DX: R19.7 Diarrhea, unspecified (principal)
CPT/HCPCS: 87505

== ENCOUNTER → 2022-10-25 02:51 | Outpatient (CLI) | payer MEDICARE, SELFPAY ==
--- NOTE | 2022-10-25 08:15 | DI.DEXA_ITS ---
Exam(s) XR DEXA BONE DENSITY W/WO NATHAN EXAM: XR DEXA BONE DENSITY W/WO NATHAN CLINICAL HISTORY: 2 in loss in height,screening for osteoporosis in postmenopausal woman,z78. TECHNIQUE: COMPARISON: CR XR HIP RT COMPLETE AP PELVIS from 04/20/2022 FINDINGS: DEXA scan was performed according to the usual protocol. Please see the accompanying data sheets. Findings for left hip scanning are T-score -2.0 with left femoral neck T-score -2.6. Prior examinati on of August 2010 showed left hip T-score -1.4. Lumbar spine scanning shows T-score -2.1. Prior examination of 07/09 showed lumbar T-score -2.7. Left forearm scanning shows T-score -2.6. IMPRESSION: The measurements are consistent with osteoporosis according to the WHO criteria. Lateral vertebral scanogram shows no evidence of a vertebral compression fracture. RADIATION DOSE DELIVERED: Total DLP
== END ==
PROVIDERS: PCP Family Medicine; Visit Provider Family Medicine
DX: M81.0 Age-related osteoporosis without current pathological fracture (principal); R53.83 Other fatigue; Z78.0 Asymptomatic menopausal state
CPT/HCPCS: 77080

== ENCOUNTER 2022-12-12 02:28 | Outpatient (CLI) | payer MEDICARE, SELFPAY ==
--- NOTE | 2022-12-12 07:45 | DI.RAD_ITS ---
Exam(s) XR STERNUM EXAM: XR STERNUM CLINICAL HISTORY: s/p trauma, pain, chest wall deformity,m95.4. TECHNIQUE: 2D digital imaging was performed. COMPARISON: CR CHEST 2 VIEWS PA,LAT from 02/19/2018 FINDINGS: Two views: No obvious sternal fracture identified. No osseous lesion in the sternum identified. IMPRESSION: No sternal fracture seen. DATA REPOSITORY: RADIATION DOSE DELIVERED:
--- NOTE | 2022-12-12 07:45 | DI.RAD_ITS ---
Exam(s) XR RIBS BI INCLUDE CHEST EXAM: XR RIBS BI INCLUDE CHEST CLINICAL HISTORY: s/p trauma, pain, chest wall deformity,m95.4 TECHNIQUE: 2D digital imaging was performed. COMPARISON: CR XR STERNUM from 12/12/2022 FINDINGS: RIBS BILATERAL VIEWS-there is a fusion plate in the posterolateral aspect left 11th rib. There are m ultiple healed left-sided rib fractures ribs 6, 7., 8, 9,. There is also deformity of the 4th rib wh ich is probably healed fracture site. No obvious acute left rib fractures. On the right side there are no acute fractures identified. No osseous lesions. CXR- 2 VIEWS: No lung contusion or pneumothorax. There is no pleural effusion evident. Heart size is normal and there is no significant mediastinal widening. Clavicles intact. AC joint is not distracted. IMPRESSION: 1. No obvious acute rib fractures evident. Also no significant rib lesions. There are multiple heal ed left-sided rib fractures of the 4th, 6, 7th 8th, 9th ribs. Also fixation plate across healing 11t h left rib fracture. No obvious acute right rib fractures. No rib lesions evident. 2. No lung nor pleural abnormality evident. No pneumothorax. DATA REPOSITORY: RADIATION DOSE DELIVERED:
== END 2022-12-12 02:48 ==
PROVIDERS: PCP Family Medicine; Visit Provider Nurse Practitioner Family
DX: M95.4 Acquired deformity of chest and rib (principal); R07.89 Other chest pain; S22.42XD Multiple fractures of ribs, left side, subsequent encounter for fracture with routine healing
CPT/HCPCS: 71046; 71110; 71120

== ENCOUNTER 2023-07-31 10:02 | Outpatient (REF) | payer MEDICARE, SELFPAY ==
[2023-07-31 19:49] LABS: COVID-19 PCR Positive (Negative); Influenza A PCR Negative (Negative); Influenza B PCR Negative (Negative); RSV PCR Negative (Negative)
[2023-07-31 20:11] LABS: Source NASOPHARYNX
== END 2023-07-31 10:03 | disposition home or self-care (01) ==
LOC: LBN 10:02
PROVIDERS: PCP Nurse Practitioner Family; Visit Provider Nurse Practitioner Family
DX: J06.9 Acute upper respiratory infection, unspecified (principal); Z20.822 Contact with and (suspected) exposure to COVID-19
CPT/HCPCS: 87637

== ENCOUNTER → 2023-08-17 10:58 | Outpatient (CLI) | payer MEDICARE, SELFPAY ==
--- NOTE | 2023-08-17 14:53 | DI.RAD_ITS ---
Exam(s) XR HIP RT COMPLETE AP PELVIS EXAM: XR HIP RT COMPLETE AP PELVIS CLINICAL HISTORY: evaluate OA M25.551 PAIN RT HIP. TECHNIQUE: 2D digital imaging was performed of the right hip. Two images were obtained. AP pelvis a nd lateral right hip views were obtained. COMPARISON: CR XR HIP RT COMPLETE AP PELVIS from 04/20/2022 FINDINGS: BONES: No acute fracture is present. No bony destructive lesion is seen. JOINTS: No dislocation present. There are degenerative changes seen in the right hip with joint space narrowing and osteophytes present. There are mild degenerative changes seen at the sacroiliac joint s. SOFT TISSUE: Normal. IMPRESSION: Mild degenerative changes of the right hip. DATA REPOSITORY: RADIATION DOSE DELIVERED:
== END ==
PROVIDERS: PCP Nurse Practitioner Family; Visit Provider Nurse Practitioner Family
DX: M16.11 Unilateral primary osteoarthritis, right hip (principal)
CPT/HCPCS: 73502

== ENCOUNTER → 2023-11-02 00:50 | Outpatient (CLI) | payer MEDICARE, SELFPAY ==
--- NOTE | 2023-11-02 06:45 | DI.MAMMO_ITS ---
Exam(s) MAMMO SCREENING EXAM: MAMMO SCREENING CLINICAL HISTORY: screening,z12.39 TECHNIQUE: Mammograms were interpreted according to the usual protocol including computer analysis w [employer] CAD system, tomosynthesis and C-view imaging. COMPARISON: 2020 FINDINGS: The breasts are composed of heterogeneously dense fibroglandular densities, Breast Density category C . No suspicious masses or suspicious microcalcifications are seen. No skin thickening or abnormal axillary lymph nodes are seen. There has been no significant change from prior exams. IMPRESSION: BI-RADS Category 1, Negative mammogram. Yearly screening mammography is recommended. Breast Density Category C, heterogeneously Dense. The mammogram demonstrates the patient's breast tissue is dense. Dense breast tissue is very common a nd is not abnormal but dense breast tissue can make it harder to find cancer on a mammogram. Also, de nse breast tissue may increase breast cancer risk. This information about the result of the mammogram report was provided to the patient to raise their awareness. Use this report when you speak with the patient about their risks for breast cancer, which includes their family history. At that time, you may recommend additional screening tests (Ultrasound or MRI) as they might be useful based on their r isk. A negative radiographic report should not delay biopsy if a dominant or clinically suspicious mass is present. Up to ten percent of cancers are not identified on mammography. A negative report may reinforce clinical impression. Adenosis and dense breasts may obscure an underlying neoplasm. False positive reports average 6 to 10%.
== END ==
PROVIDERS: PCP Nurse Practitioner Family; Visit Provider Nurse Practitioner Family
DX: E78.5 Hyperlipidemia, unspecified (principal); Z12.31 Encounter for screening mammogram for malignant neoplasm of breast
CPT/HCPCS: 77063; 77067

== ENCOUNTER 2023-11-08 02:52 | Outpatient (CLI) | payer MEDICARE, SELFPAY ==
[2023-11-08 09:36] LABS: ALT 27 U/L (14-59); AST 17 U/L (15-37); Albumin 3.9 g/dL (3.4-5.0); Alkaline Phosphatase 100 U/L (46-116); Anion Gap 5.5 mmol/L (3-11); BUN 14 mg/dL (7-18); Bilirubin, Total 0.6 mg/dL (0.2-1.0); CO2 30.5 mmol/L (21.0-32.0); CREATININE 1.1 mg/dL (0.55-1.02); Calcium 9.9 mg/dL (8.5-10.1); Calculated LDL 157 mg/dL (<100); Chloride 101 mmol/L (98-107); Cholesterol 265 mg/dL (<200); Estimated GFR 53.39 (mL/min/1.73m2); Glucose 93 mg/dL (74-106); HDL Cholesterol 96 mg/dL (40-60); Potassium 3.8 mmol/L (3.5-5.1); Sodium 137 mmol/L (136-145); Total Protein 8.2 g/dL (6.4-8.2); Triglyceride 62 mg/dL (<150)
== END 2023-11-08 02:53 | disposition home or self-care (01) ==
LOC: LBO 02:52
PROVIDERS: PCP Nurse Practitioner Family; Visit Provider Nurse Practitioner Family
DX: E78.5 Hyperlipidemia, unspecified (principal)
CPT/HCPCS: 36415; 80053; 80061

== ENCOUNTER 2024-11-05 03:31 | Outpatient (CLI) | payer MEDICARE, SELFPAY ==
--- NOTE | 2024-11-05 07:30 | DI.MAMMO_ITS ---
Exam(s) MAMMO SCREENING EXAM: MAMMO SCREENING CLINICAL HISTORY: screening,z12.39 TECHNIQUE: Bilateral full field digital CC and MLO mammographic images were obtained with 3D tomosyn thesis and utilizing computer aided detection (CAD). COMPARISON: Available for comparison. FINDINGS: Masses/Architectural Distortion: There is a question of a new nodular density in the posterior aspect of the left breast on the MLO view 7.5 cm from the nipple. There are no areas of architectural dist ortion. Microcalcifications: No suspicious pleomorphic-type are seen. Skin Thickening/Nipple Retraction: None. IMPRESSION: 1. New area of nodularity in the posterior aspect of the left breast on the MLO view. 2. This area should be further evaluated with spot compression view. Limited left breast ultrasound may be indicated at that time. BI-RADS Category 0 - Incomplete: Need additional imaging evaluation Breast Density - Category C - Heterogeneously dense Breast density category C or D implies that the patient has dense breast tissue. Dense breast tissue is very common and is not abnormal but dense breast tissue can make it harder to find cancer on a ma mmogram. Also, dense breast tissue may increase their breast cancer risk. This information about the result of the mammogram report was provided to the patient to raise their awareness. Use this report when you speak with the patient about their risks for breast cancer, which includes their family hist ory. At that time, you may recommend for more screening tests (Ultrasound or MRI) as they might be us eful based on their risk. A negative radiographic report should not delay biopsy if a dominant or clinically suspicious mass is present. Up to ten percent of cancers are not identified on mammography. A negative report may reinforce clinical impression. Adenosis and dense breasts may obscure an underlying neoplasm. False positive reports average 6 to 10%. Patient will receive a letter notifying them of these results.
== END 2024-11-05 03:51 ==
LOC: DI 03:31
PROVIDERS: PCP Nurse Practitioner Family; Visit Provider Nurse Practitioner Family
DX: Z12.31 Encounter for screening mammogram for malignant neoplasm of breast (principal); R92.333 Mammographic heterogeneous density, bilateral breasts
CPT/HCPCS: 77063; 77067

== ENCOUNTER 2024-11-17 01:54 | Outpatient (CLI) | payer MEDICARE, SELFPAY ==
--- NOTE | 2024-11-17 | DI.MAMMO_ITS ---
Exam(s) MG MAMMO SCREEN CALL BACK UNI US BREAST LT COMPLETE EXAM: MG MAMMO SCREEN CALL BACK UNI LEFT AND COMPLETE LEFT BREAST ULTRASOUND CLINICAL HISTORY: New area of nodularity in posterior aspect, lt breast. TECHNIQUE: Unilateral LEFT BREAST spot mammographic MLO image obtained with 3D tomosynthesisand util izing computer aided detection (CAD). . Complete LEFT breast Ultrasound was also performed, including all 4 quadrants, the retroareolar regio n, and the ipsilateral axilla. COMPARISON: Prior mammograms were reviewed. This additional imaging was performed due to findings described on the recent screening mammogram of 11/05/2024. FINDINGS: DIAGNOSTIC MAMMOGRAM: Additional mammographic views performed todayrender this area less concerning. COMPLETE LEFT BREAST ULTRASOUND: Ultrasound performed today reveals no evidence of solid or significant cystic lesions in all 4 quadra nts.. Scanning of the ipsilateral axilla reveals no significant adenopathy. IMPRESSION: 1. No radiographic evidence of malignancy. 2. Negative complete left breast ultrasound Appropriate follow-up is repeat left breast mammogram in 6 months. The patient was informed of these findings and recommendations myself prior to leaving the department today. BI-RADS Category 3 - 6 month - Probably Benign Finding: Recommend follow-up mammography in 6 months Breast Density - Category C - Heterogeneously dense Breast density Category C or D implies that the patient has dense breast tissue. Dense breast tissue can make it harder to find cancer on a mammogram. Dense breast tissue is also associated with an incr eased risk of breast cancer. This information about the result of the mammogram report was provided to the patient to raise their awareness. Use this report when you speak with the patient about their risks for breast cancer, which includes their family history. At that time, you may recommend additional screening tests (Ultrasoun d or MRI) as these tests may add significant information. A negative radiographic report should not delay biopsy if a dominant or clinically suspicious mass is present. Up to ten percent of cancers are not identified on mammography. A negative report may reinforce clinical impression. Adenosis and dense breasts may obscure an underlying neoplasm. False positive reports average 6 to 10%. Patient will receive a letter notifying them of these results.
== END 2024-11-17 02:14 ==
LOC: DI 01:54
PROVIDERS: PCP Nurse Practitioner Family; Visit Provider Nurse Practitioner Family
DX: R92.8 Other abnormal and inconclusive findings on diagnostic imaging of breast (principal); Z12.31 Encounter for screening mammogram for malignant neoplasm of breast
CPT/HCPCS: 76642; 77063; 77067

== ENCOUNTER 2024-11-25 01:23 | Outpatient (CLI) | payer MEDICARE, SELFPAY ==
--- NOTE | 2024-11-25 07:47 | DI.CT_ITS ---
Exam(s) CT CHEST WO EXAM: CT CHEST WO CLINICAL HISTORY: +stitch, increasing,chest wall deformity,rib fractures,mult trauma,. TECHNIQUE: Multi planar reconstructions were performed. CONTRAST MATERIAL: None COMPARISON: CT CHEST WITHOUT CONTRAST from 04/06/2016 FINDINGS: CHEST: LUNGS: There are no infiltrates nor pleural effusions. There are no ominous pulmonary nodules. No f indings in trachea and mainstem bronchi. There is no bronchiectasis. With respect to lung volumes, appears unchanged from CT scan of March 2016. Multiple healed left-sided rib fractures as described ab ove are noted. There is no prominent decreasing lung volume on either side. MEDIASTINUM: There is no obvious hilar nor mediastinal adenopathy. Visualized thyroid unremarkable.No obvious axillary adenopathy CARDIAC: Heart size is upper normal. There is no pericardial effusion.Caliber of the thoracic aorta is within normal limits. VISUALIZED UPPER ABDOMEN:No significant findings. No adrenal masses. OSSEOUS: On the left side there are healed fractures of the left 6th, 7th, 8th, 9th ribs. There is n o obvious fracture of the 10th rib. There is also of fusion plate across a previous fracture of the posterolateral aspect of the left 11th rib, not previously present.No right rib fractures.. No vertebral fractures. No sternal fractures. IMPRESSION: 1. Compared to prior CT scan of 2015 there again noted multiple left rib fractures including left rib s 6 through 11 but without an obvious fracture of 10th rib. There is also no effusion plate across p reviously non healed fracture in the posterolateral aspect of the left 11th rib. 2. No new pulmonary findings. No pleural effusions. 3. RADIATION DOSE DELIVERED: 151.95mGy.cm Total DLP DATA REPOSITORY: All CT scans at this facility are submitted to the National Radiology Data Registry (NRDR) Dose Index Registry (DIR) with the [employer] ([employer]). RADIATION OPTIMIZATION: All CT scans at this facility use at least one of these dose optimization te chniques: automated exposure control; mA and/or kV adjustment per patient size (includes targeted exa ms where dose is matched to clinical indication); or iterative reconstruction.
[2024-11-25 14:11] LABS: CREATININE 1.1 mg/dL (0.55-1.02); Estimated GFR 53.06 (mL/min/1.73m2)
== END 2024-11-25 01:43 ==
LOC: DI 01:23
PROVIDERS: PCP Nurse Practitioner Family; Visit Provider Nurse Practitioner Family
DX: M95.4 Acquired deformity of chest and rib (principal)
CPT/HCPCS: 71250; 82565

== ENCOUNTER 2025-01-09 00:21 | Outpatient (CLI) | payer MEDICARE, SELFPAY ==
--- NOTE | 2025-01-09 10:53 | DI.RAD_ITS ---
Exam(s) XR STERNUM EXAM: XR STERNUM CLINICAL HISTORY: eval fx,sternal pain,r07.89. TECHNIQUE: 2D digital imaging was performed. Two images were obtained. COMPARISON: CR XR STERNUM from 12/12/[address] CHEST WO from 11/25/2024 FINDINGS: No evidence of a sternal fracture. The bones are normally mineralized. The soft tissues are unremar kable. IMPRESSION: No evidence of a sternal fracture. If symptoms persist, a CT scan may be considered for further eval uation. DATA REPOSITORY: RADIATION DOSE DELIVERED:
== END 2025-01-09 00:41 ==
PROVIDERS: PCP Nurse Practitioner Family; Visit Provider Nurse Practitioner Family
DX: R07.89 Other chest pain (principal)
CPT/HCPCS: 71120

== ENCOUNTER 2025-04-26 13:01 | Emergency (ER) | payer MEDICARE, SELFPAY ==
[2025-04-26 13:04] VITALS: BP 178/97; PULSE 72; RESP 18; TEMP 36.4; O2SAT 99
[2025-04-26 13:08] VITALS: BP 178/97; PULSE 72; RESP 18; TEMP 36.4; O2SAT 99
--- NOTE | 2025-04-26 13:26 | W.ED.GENAD ---
Discharge Plan Disposition Patient Disposition: Home Condition: Stable Discharge Details Clinical Impression: Otitis externa of right ear Primary Care Provider: Jose Pandya ED Provider: Edmond Campos Home Meds and New Rx's Prescriptions: Continued trazodone 150 mg tablet 37.5 mg PO DAILY Qty: 90 1RF Nurtec ODT 75 mg tablet,disintegrating 75 mg PO ONCE PRN Rx Instructions: as a single dose; not to exceed 1 dose per 24 hrs OR 15 doses per 30 days ibuprofen 600 mg tablet 600 mg PO QID PRN (Reason: pain) Qty: 120 0RF lorazepam 0.5 mg tablet 0.5 mg PO TID PRN (Reason: anxiety) Qty: 20 0RF albuterol sulfate 90 mcg/actuation HFA aerosol inhaler 2 puff inhalation Q6H PRN (Reason: shortness of breath or wheezing) Qty: 6.7 0RF Fish Oil 500 MG capsule 1 tab PO DAILY Patient Comments: 05/29/18 Pt reports she only takes prn. ts 01/03/17 taking daily. md pt in too much pain to remember any medications, pt's unsure. Probiotic 1 EACH capsule, sprinkle 1 ea PO Patient Comments: 01/03/17 taking daily. md pt in too much pain to remember any medications, pt's unsure. Ostera 1 EACH tablet 1 ea PO DAILY coenzyme Q10 [Co Q-10] 10 MG capsule 10 mg PO DAILY Patient Comments: 05/29/18 Pt takes 100mg daily. ts riboflavin (vitamin B2) 50 MG tablet 50 mg PO DAILY Patient Comments: 05/29/18 Pt takes 100mg daily. ts Claritin-D 24 Hour 10-240 mg tablet extended release 24 hr 1 tab PO DAILY PRN Discharge Instructions Additional Instructions: Place 4 drops in the right ear 3 times a day for 7 days or until the bottle is gone. You should lay on your side when placing the drops and stay there for 3 to 5 minutes. If not improving within a week follow-up with your primary care provider or urgent care. If you feel similarly more ill or have any symptoms such as high fevers return to the emergency department for reevaluation HPI General Mode of arrival: ambulatory. Date/Time Provider Initiated Documentation: 04/26/25 13:05. Limitations to Documentation: no limitations. Information obtained by: patient. History of Present Illness 74 year old F presents to the emergency department with the chief complaint of right ear pain, described as moderate, Quality is described as aching, and it has been constant. No relieving factors improve symptom(s), No exacerbating factors reported . Patient notes no other symptoms.. Patient did receive the following treatments prior to arrival, none Related Data Home Medications ?Medication ?Instructions ?Recorded ?Confirmed omega-3 fatty acids 500 mg capsule 1 tab PO DAILY 02/20/13 04/26/25 (Fish Oil) lactobacillus combo no.11 15 1 ea PO 08/13/15 12/30/24 billion cell sprinkle capsule (Probiotic) vitamin D3 500 unit-vit K 500 1 ea PO DAILY 01/03/17 04/26/25 mcg-berberine 90 mg-hops 370 mg tablet (Ostera) coenzyme Q10 10 mg capsule (Co 10 mg PO DAILY 05/29/18 04/26/25 Q-10) riboflavin (vitamin B2) 50 mg 50 mg PO DAILY 05/29/18 04/26/25 tablet loratadine-pseudoephedrine ER 10 1 tab PO DAILY PRN 09/06/18 04/26/25 mg-240 mg tablet,extended [id number] (Claritin-D 24 Hour) rimegepant 75 mg disintegrating 75 mg PO ONCE PRN 08/11/21 04/26/25 tablet (Nurtec ODT) ibuprofen 600 mg tablet 600 mg PO QID PRN pain #120 tabs 07/31/23 04/26/25 trazodone 150 mg tablet 37.5 mg (1/4 x 150 mg) PO DAILY 05/05/24 04/26/25 #90 tabs albuterol sulfate 90 mcg/actuation 2 puff inhalation Q6H PRN 12/30/24 04/26/25 aerosol inhaler shortness of breath or wheezing #6.7 grams lorazepam 0.5 mg tablet 0.5 mg PO TID PRN anxiety #20 tabs 12/30/24 04/26/25 Previous Rx's ?Medication ?Instructions ?Recorded ibuprofen 600 mg tablet 600 mg PO QID PRN pain #120 tabs 07/31/23 trazodone 150 mg tablet 37.5 mg (1/4 x 150 mg) PO DAILY 05/05/24 #90 tabs albuterol sulfate 90 mcg/actuation 2 puff inhalation Q6H PRN 12/30/24 aerosol inhaler shortness of breath or wheezing #6.7 grams lorazepam 0.5 mg tablet 0.5 mg PO TID PRN anxiety #20 tabs 12/30/24 Allergies Allergy/AdvReac Type Severity Reaction Status Date / Time Iodine and Iodide Containing AdvReac Mild cough Verified 04/26/25 13:07 Produc General Stated Complaint: EarProblem HARIKA: 4 Review of Systems All systems reviewed & are unremarkable except as noted in HPI and below Constitutional Constitutional: Denies chills, Denies fever(s) and Denies weakness ENT Ears, Nose, Mouth, and Throat: Reports otalgia Respiratory Respiratory: Denies cough Neurologic Neurologic: Denies weakness Exam Const General: no acute distress Orientation: alert HENMT Head: normal to inspection Ears: external ears normal, TM's normal bilaterally, EAC's not normal and mastoids normal General nose exam: external nose normal Mouth: moist mucous membranes Eyes General: appearance normal, both eyes and all related structures Neck Neck: normal visual inspection Resp Effort & Inspection: normal respiratory effort and able to speak in complete sentences Cardio Rate: regular rate Skin General skin exam: no rashes or lesions noted Neuro General: patient alert and patient oriented x3 Extrem General: normal to inspection Psych Mental Status: mental status grossly normal Course Vital Signs Vital signs: Vital Signs Temperature 36.4 C L 04/26/25 13:04 Pulse 72 04/26/25 13:04 Respiratory Rate 18 04/26/25 13:04 Blood Pressure 178/97 H 04/26/25 13:04 Pulse Oximetry 99 04/26/25 13:04 Temperature 36.4 C L 04/26/25 13:08 Temperature Source Tympanic 04/26/25 13:08 Pulse 72 04/26/25 13:08 Respiratory Rate 18 04/26/25 13:08 Blood Pressure 178/97 H 04/26/25 13:08 Pulse Oximetry 99 04/26/25 13:08 Oxygen Delivery Method Room Air 04/26/25 13:08 Oxygen Flow Rate 0 04/26/25 13:08 Medical Decision Making 74-year-old female comes in with finding of right ear pain. Denies any fevers or trauma. No drainage. She is well-appearing on exam speaking clearly. Her left TM, external auditory canal and external mastoid exams are normal. Her right TM is normal with the right external auditory canal is swollen and mildly erythematous. There is no drainage. The external mastoid on the right is also normal. Findings are consistent with otitis externa. And will place her on Cortisporin drops. She will follow-up with either express care or her primary care if not improving and return precautions given Quality:SDOH Health Related Social Needs: No Data to Display PFSH All Active Problems (Updated 04/26/25 @ 13:27 by Edmond Campos MD) Otitis externa of right ear (Acute) Migraine (Chronic) less severe in menopause Postmenopausal state (Acute) PCOS Dyspepsia and disorder of function of stomach (Acute) Hyperlipidemia (Acute) Primary osteoarthritis of right hip (Acute) Primary osteoarthritis of left knee (Acute) Osteoporosis (Chronic 10/25/22) Grief reaction (Acute) sudden loss of her 09/2022 Chest wall deformity (Acute) Medical History Hx of meningitis History of COVID-19 post covid fatigue History of giardia infection PSVT (paroxysmal supraventricular tachycardia) negative echo and holter monitor. Syncope (04/2021) due to heat and dehydration Closed fracture at wrist or hand level History of shingles Anxiety situational, not currently needing treatment Diarrhea Multiple trauma (01/03/17) 10/03. Horse riding injury. Multiple rib fx, ruptured spleen, left shoulder disloc. 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 Initial dose 2015 Family History Sister Heart disease [place] Hypertension Skin cancer Mother , age 87 Lung cancer Father , age 93 Prostate cancer Skin cancer Maternal Grandfather Alcohol abuse Paternal Grandfather No problems noted. Maternal Grandmother , age 104 No problems noted. Paternal Grandmother No problems noted. Social History Smoking/Tobacco Use Status: Former Tobacco Use tobacco type: cigarettes Quit Date: 11/19/73 Tobacco: How many years used: 2 Second Hand Exposure: Yes Smoking risk assessment performed?: Yes Alcohol Intake: current Alcohol Intake frequency: a few times a month Alcohol type: beer and wine Drug use: Rarely Substance use type: marijuana Adopted: No Caregiver/Support person: No Foster care: No Household members: spouse Housing: house Number of Children: 1 number of grandchildren: 2 Communication Needs: None Education Level: college Do you need help understanding health information?: Never 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 Pets and animals: Yes Pets and animals: cat(s) and horse(s) Sexually active: Yes Do you think of yourself as: straight/heterosexual Current gender identity: female What is your relationship status?: How often do you talk on the phone with friends or family?: three or more times per week How often do you get together with friends or relatives?: once per week How often do you attend mosque or hoahaoism services?: decline to answer Do you belong to any clubs or organized social groups?: no Panel score (0-1 are the most socially isolated patients): 2 What type of physical activity do you participate in: other Details: gardening,farm chores Duration: decline to answer Frequency: decline to answer Aurora/Lutheran: No preference Special aurora needs: No Seatbelt use: always Helmet use: No Drive intox or ride w/intox courtesy bus driver: No Do you feel safe at home: Yes Do you feel safe in your relationship?: Yes Additional Social history: Enjoys playing music/guitar. Previously rode horses until accident in 2014.
[2025-04-26] MEDS: Cortisporin OTIC SUSP 10 ML BTL AU (13:33)
== END 2025-04-26 13:37 | disposition home or self-care (01) ==
LOC: ER 14:22
PROVIDERS: Emergency Provider Emergency Medicine; PCP Nurse Practitioner Family
DX: H60.91 Unspecified otitis externa, right ear (principal)
CPT/HCPCS: 99283 ×2

== ENCOUNTER 2025-04-30 11:33 | Emergency (ER) | payer MEDICARE, SELFPAY ==
[2025-04-30 11:34] VITALS: BP 192/94; PULSE 75; RESP 18; TEMP 36.6; O2SAT 97
[2025-04-30 11:41] VITALS: BP 192/94; PULSE 75; RESP 18; TEMP 36.6; O2SAT 97
[2025-04-30 12:36] VITALS: BP 173/94; PULSE 59; O2SAT 99
[2025-04-30] MEDS: Ciprofloxacin 0.3% 2.5 ML BTL OD (12:47)
--- NOTE | 2025-04-30 14:37 | ED.GENADUL_ITS ---
Discharge Plan Disposition Patient Disposition: Home Discharge Details Clinical Impression: Otitis media, Otitis externa Primary Care Provider: Jose Pandya ED Provider: Yajaira Trejo Home Meds and New Rx's Prescriptions: New fluconazole [Diflucan] 100 mg tablet 100 mg PO DAILY Qty: 2 0RF amoxicillin 875 mg tablet 875 mg PO BID Qty: 20 0RF Continued trazodone 150 mg tablet 37.5 mg PO DAILY Qty: 90 1RF Nurtec ODT 75 mg tablet,disintegrating 75 mg PO ONCE PRN Rx Instructions: as a single dose; not to exceed 1 dose per 24 hrs OR 15 doses per 30 days ibuprofen 600 mg tablet 600 mg PO QID PRN (Reason: pain) Qty: 120 0RF lorazepam 0.5 mg tablet 0.5 mg PO TID PRN (Reason: anxiety) Qty: 20 0RF albuterol sulfate 90 mcg/actuation HFA aerosol inhaler 2 puff inhalation Q6H PRN (Reason: shortness of breath or wheezing) Qty: 6.7 0RF Fish Oil 500 MG capsule 1 tab PO DAILY Patient Comments: 05/29/18 Pt reports she only takes prn. ts 01/03/17 taking daily. md pt in too much pain to remember any medications, pt's unsure. Probiotic 1 EACH capsule, sprinkle 1 ea PO Patient Comments: 01/03/17 taking daily. md pt in too much pain to remember any medications, pt's unsure. Ostera 1 EACH tablet 1 ea PO DAILY coenzyme Q10 [Co Q-10] 10 MG capsule 10 mg PO DAILY Patient Comments: 05/29/18 Pt takes 100mg daily. ts riboflavin (vitamin B2) 50 MG tablet 50 mg PO DAILY Patient Comments: 05/29/18 Pt takes 100mg daily. ts Claritin-D 24 Hour 10-240 mg tablet extended release 24 hr 1 tab PO DAILY PRN Discharge Instructions Instructions: Outer Ear Infection ED, Ear Infection ED Additional Instructions: use cipro drops twice daily for 7 days remove wick in 3 days take the antibiotic as prescribed orally please be reevaluated by pcp in 10 days return earlier with new or worsening complaints keep water out of ear as much as possible Referrals: Jose Pandya, [facility] [Primary Care Provider, Medicine] Discharge Data Discharge Date/Time-TO BE ENTERED AT DEPARTURE: 04/30/25 12:36 HPI General Date/Time Provider Initiated Documentation: 04/30/25 11:52 . HPI Narrative: 74-year-old female with persistent right ear pain despite 4 days of eardrops. History of splenectomy, otherwise healthy. Related Data Home Medications ?Medication ?Instructions ?Recorded ?Confirmed omega-3 fatty acids 500 mg capsule 1 tab PO DAILY 0403/0104/30/25 (Fish Oil) lactobacillus combo no.11 15 1 ea PO 08/13/15 12/30/24 billion cell sprinkle capsule (Probiotic) vitamin D3 500 unit-vit K 500 1 ea PO DAILY 01/03/17 0 04/30/25 mcg-berberine 90 mg-hops 370 mg tablet (Ostera) coenzyme Q10 10 mg capsule (Co 10 mg PO DAILY 05/29/18 04/30/25 Q-10) riboflavin (vitamin B2) 50 mg 50 mg PO DAILY 05/29/18 04/30/25 tablet loratadine-pseudoephedrine ER 10 1 tab PO DAILY PRN 04/30/25 mg-240 mg tablet,extended [id number] (Claritin-D 24 Hour) rimegepant 75 mg disintegrating 75 mg PO ONCE PRN 07/2104/30/25 tablet (Nurtec ODT) ibuprofen 600 mg tablet 600 mg PO QID PRN pain #120 tabs 07/31/23 04/30/25 trazodone 150 mg tablet 37.5 mg (1/4 x 150 mg) PO DA CONCEPCIÓN 05/05/24 04/30/25 #90 tabs albuterol sulfate 90 mcg/actuation 2 puff inhalation Q 6H PRN 12/30/24 04/30/25 aerosol inhaler shortness of breath or wheez ing #6.7 grams lorazepam 0.5 mg tablet 0.5 mg PO TID PRN anxiety #2 0 tabs 12/30/24 04/30/25 amoxicillin 875 mg tablet 875 mg PO BID #20 tabs 04/30 fluconazole 100 mg tablet 100 mg PO DAILY #2 tabs 04/19 01/13 (Diflucan) Previous Rx's ?Medication ?Instructions ?Recorded ibuprofen 600 mg tablet 600 mg PO QID PRN pain #120 tabs 07/31/23 trazodone 150 mg tablet 37.5 mg (1/4 x 150 mg) PO DA CONCEPCIÓN 05/05/24 #90 tabs albuterol sulfate 90 mcg/actuation 2 puff inhalation Q 6H PRN 12/30/24 aerosol inhaler shortness of breath or wheez ing #6.7 grams lorazepam 0.5 mg tablet 0.5 mg PO TID PRN anxiety #2 0 tabs 12/30/24 amoxicillin 875 mg tablet 875 mg PO BID #20 tabs 04/30 fluconazole 100 mg tablet 100 mg PO DAILY #2 tabs 04/19 01/13 (Diflucan) Allergies Allergy/AdvReac Type Severity Reaction Status Date / Time Iodine and Iodide Containing AdvReac Mild cough Verified 04/30/25 11:40 Produc General Stated Complaint: EarProblem HARIKA: 4 Exam Narrative Exam Narrative: General Appearance: Alert and oriented. Vital signs: Within normal limits. HEENT: Right ear: cloudy, dull tympanic membrane; thickened, macerated canal with purulent drainage. No intraoral pathology. Respiratory: Within normal limits. Skin: Warm and dry, no rash. Neurological: Normal. Lymphatic: No submandibular lymphadenopathy, periauricular lymphadenopathy. Back, Musculoskeletal: No mastoid tenderness. Other observations: No meningismus. Course Vital Signs Vital signs: Vital Signs Temperature 36.6 C 04/30/25 11:34 Pulse 75 04/30/25 11:34 Respiratory Rate 18 04/30/25 11:34 Blood Pressure 192/94 H 04/30/25 11:34 Pulse Oximetry 97 04/30/25 11:34 Temperature 36.6 C 04/30/25 11:41 Pulse 59 L 04/30/25 12:36 Respiratory Rate 18 04/30/25 11:41 Blood Pressure 173/94 H 04/30/25 12:36 Pulse Oximetry 99 04/30/25 12:36 Oxygen Delivery Method Room Air 04/30/25 11:41 Oxygen Flow Rate 0 04/30/25 11:41 Pain Level 8 04/30/25 11:47 Medical Decision Making Initial Assessment: 74-year-old female with persistent right ear pain despite using eardrops for the past 4 days. History of prior splenectomy, otherwise reportedly healthy. ED Course: - Exam: Right ear with cloudy, dull tympanic membrane; thickened, macerated canal with purulent drainage. - Afebrile, nontoxic. - Initiate amoxicillin. - Switch to Ciprodex drops. - Wick placed, remove in 72 hours. - Reviewed return precautions, patient expressed understanding. Final Assessment: Persistent right ear pain despite 4 days of eardrops. Treatment initiated with amoxicillin and Ciprodex drops. Wick placed for removal in 72 hours. Patient afebrile and nontoxic. Clinical Impression: - Right ear pain Disposition: - Follow-Up: Recheck in 10 days. [facility] Comp[facility] Evaluation: - Number of Differential Diagnoses or Management Options: Right ear pain - Amount and Complexity of Data Reviewed: Exam findings, patient history - Risk of Complication and Morbidity or Mortality: Low risk given afebrile and nontoxic status PFSH All Active Problems (Updated 04/30/25 @ 12:29 by REBECCA Hayes) Otitis externa (Acute) Otitis media (Acute) Otitis externa of right ear (Acute) Migraine (Chronic) less severe in menopause Postmenopausal state (Acute) PCOS Dyspepsia and disorder of function of stomach (Acute) Hyperlipidemia (Acute) Primary osteoarthritis of right hip (Acute) Primary osteoarthritis of left knee (Acute) Osteoporosis (Chronic 10/25/22) Grief reaction (Acute) sudden loss of her 09/2022 Chest wall deformity (Acute) Medical History Hx of meningitis History of COVID-19 post covid fatigue History of giardia infection PSVT (paroxysmal supraventricular tachycardia) negative echo and holter monitor. Syncope (04/2021) due to heat and dehydration Closed fracture at wrist or hand level History of shingles Anxiety situational, not currently needing treatment Diarrhea Multiple trauma (01/03/17) 10/03. Horse riding injury. Multiple rib fx, ruptured spleen, left shoulder disloc. 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 Initial dose 2015 Family History Sister Heart disease [place] Hypertension Skin cancer Mother , age 87 Lung cancer Father , age 93 Prostate cancer Skin cancer Maternal Grandfather Alcohol abuse Paternal Grandfather No problems noted. Maternal Grandmother , age 104 No problems noted. Paternal Grandmother No problems noted. Social History Smoking/Tobacco Use Status: Former Tobacco Use tobacco type: cigarettes Quit Date: 11/19/73 Tobacco: How many years used: 2 Second Hand Exposure: Yes Smoking risk assessment performed?: Yes Alcohol Intake: current Alcohol Intake frequency: a few times a month Alcohol type: beer and wine Drug use: Rarely Substance use type: marijuana Adopted: No Caregiver/Support person: No Foster care: No Household members: spouse Housing: house Number of Children: 1 number of grandchildren: 2 Communication Needs: None Education Level: college Do you need help understanding health information?: Never 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 Pets and animals: Yes Pets and animals: cat(s) and horse(s) Sexually active: Yes Do you think of yourself as: straight/heterosexual Current gender identity: female What is your relationship status?: How often do you talk on the phone with friends or family?: three or more times per week How often do you get together with friends or relatives?: once per week How often do you attend samaritan or cheondoism services?: decline to answer Do you belong to any clubs or organized social groups?: no Panel score (0-1 are the most socially isolated patients): 2 What type of physical activity do you participate in: other Details: gardening,farm chores Duration: decline to answer Frequency: decline to answer Aurora/Shinto: No preference Special aurora needs: No Seatbelt use: always Helmet use: No Drive intox or ride w/intox steam train driver: No Do you feel safe at home: Yes Do you feel safe in your relationship?: Yes Additional Social history: Enjoys playing music/guitar. Previously rode horses until accident in 2014.
--- NOTE | 2025-04-30 14:39 | NUR.NOTE ---
Patient called asking about prescriptions that were supposed to go to [facility]. Spoke with Yajaira Trejo and she is going to send them to [facility]. Per the patient I have changed her preferred pharmacy to [facility]. Nursing Note:
== END 2025-04-30 12:36 | disposition home or self-care (01) ==
PROVIDERS: Emergency Provider Physician Assistant; PCP Nurse Practitioner Family
DX: H66.91 Otitis media, unspecified, right ear (principal); H60.501 Unspecified acute noninfective otitis externa, right ear
CPT/HCPCS: 99283 ×2

== ENCOUNTER 2025-05-03 17:09 | Emergency (ER) | payer MEDICARE, SELFPAY ==
[2025-05-03 17:11] VITALS: BP 198/105; PULSE 76; TEMP 36.7; O2SAT 97
[2025-05-03 17:28] VITALS: BP 198/105; PULSE 76; TEMP 36.7; O2SAT 97
--- NOTE | 2025-05-03 17:38 | W.ED.GENAD ---
Discharge Plan Disposition Patient Disposition: Home Condition: Stable Discharge Details Clinical Impression: Otitis externa of right ear, Otitis media Primary Care Provider: Jose Pandya ED Provider: Sara Hassan Home Meds and New Rx's Prescriptions: New amoxicillin-pot clavulanate 875-125 mg tablet 1 tab PO BID 6 Days Qty: 12 0RF No Action trazodone 150 mg tablet 37.5 mg PO DAILY Qty: 90 1RF Nurtec ODT 75 mg tablet,disintegrating 75 mg PO ONCE PRN Rx Instructions: as a single dose; not to exceed 1 dose per 24 hrs OR 15 doses per 30 days ibuprofen 600 mg tablet 600 mg PO QID PRN (Reason: pain) Qty: 120 0RF lorazepam 0.5 mg tablet 0.5 mg PO TID PRN (Reason: anxiety) Qty: 20 0RF albuterol sulfate 90 mcg/actuation HFA aerosol inhaler 2 puff inhalation Q6H PRN (Reason: shortness of breath or wheezing) Qty: 6.7 0RF Fish Oil 500 MG capsule 1 tab PO DAILY Patient Comments: 05/29/18 Pt reports she only takes prn. ts 01/03/17 taking daily. md pt in too much pain to remember any medications, pt's unsure. Probiotic 1 EACH capsule, sprinkle 1 ea PO DAILY Patient Comments: 01/03/17 taking daily. md pt in too much pain to remember any medications, pt's unsure. Ostera 1 EACH tablet 1 ea PO DAILY coenzyme Q10 [Co Q-10] 10 MG capsule 10 mg PO DAILY Patient Comments: 05/29/18 Pt takes 100mg daily. ts riboflavin (vitamin B2) 50 MG tablet 50 mg PO DAILY Patient Comments: 05/29/18 Pt takes 100mg daily. ts Claritin-D 24 Hour 10-240 mg tablet extended release 24 hr 1 tab PO DAILY PRN fluconazole [Diflucan] 100 mg tablet 100 mg PO DAILY Qty: 2 0RF amoxicillin 875 mg tablet 875 mg PO BID Qty: 20 0RF Discharge Instructions Instructions: Ear Infections in Adults (DC) Additional Instructions: You were seen in the ED for evaluation of ongoing ear pain from your recent outer and middle ear infection. You had a full physical exam that was reassuring, and we discussed continuing your ear drops, and switching your antibiotic from amoxicillin to amoxicillin-pot clavulanate. You will take a total of 7 days, please continue until they are gone, even if you feel improved. You should discard your remaining amoxicillin. Please follow-up with your primary care provider in the next few days to discuss this visit and any symptoms that change, worsen, or persist. Thank you for allowing us to be part of your care. Discharge Data Discharge Date/Time-TO BE ENTERED AT DEPARTURE: 05/03/25 17:51 HPI General Mode of arrival: ambulatory. Date/Time Provider Initiated Documentation: 05/03/25 17:10. Limitations to Documentation: no limitations. Information obtained by: patient and old records reviewed. HPI Narrative: This is a 74-year-old female patient with a past medical history significant for asplenia, and recent diagnosis of right-sided otitis externa and otitis media presenting for evaluation of ongoing ear symptoms. The patient reports that she was initially diagnosed with otitis externa, and started on Cipro drops which she has been using twice a day for the past 7 days. She she states that she was seen again for ongoing pain and diagnosed with otitis media, started on amoxicillin, which she has been taking for 4 days. She feels like her symptoms have improved, notes that the wick that was placed fell out a day or so ago, she continues to experience some discomfort in the ear, radiating down into the right jaw. She states that this pain is better than it was at her initial diagnosis. She states that she has been using ibuprofen for management of the pain, denies fever or chills, vision changes, difficulty swallowing, or any other associated symptoms. Related Data Home Medications ?Medication ?Instructions ?Recorded ?Confirmed omega-3 fatty acids 500 mg capsule 1 tab PO DAILY 02/20/13 05/03/25 (Fish Oil) lactobacillus combo no.11 15 1 ea PO DAILY 08/13/15 05/03/25 billion cell sprinkle capsule (Probiotic) vitamin D3 500 unit-vit K 500 1 ea PO DAILY 01/03/17 05/03/25 mcg-berberine 90 mg-hops 370 mg tablet (Ostera) coenzyme Q10 10 mg capsule (Co 10 mg PO DAILY 05/29/18 05/03/25 Q-10) riboflavin (vitamin B2) 50 mg 50 mg PO DAILY 05/29/18 05/03/25 tablet loratadine-pseudoephedrine ER 10 1 tab PO DAILY PRN 09/06/18 05/03/25 mg-240 mg tablet,extended [id number] (Claritin-D 24 Hour) rimegepant 75 mg disintegrating 75 mg PO ONCE PRN 08/11/21 05/03/25 tablet (Nurtec ODT) ibuprofen 600 mg tablet 600 mg PO QID PRN pain #120 tabs 07/31/23 05/03/25 trazodone 150 mg tablet 37.5 mg (1/4 x 150 mg) PO DAILY 05/05/24 05/03/25 #90 tabs albuterol sulfate 90 mcg/actuation 2 puff inhalation Q6H PRN 12/30/24 05/03/25 aerosol inhaler shortness of breath or wheezing #6.7 grams lorazepam 0.5 mg tablet 0.5 mg PO TID PRN anxiety #20 tabs 12/30/24 05/03/25 amoxicillin 875 mg tablet 875 mg PO BID #20 tabs 04/30/25 05/03/25 fluconazole 100 mg tablet 100 mg PO DAILY #2 tabs 04/30/25 05/03/25 (Diflucan) amoxicillin 875 mg-potassium 1 tab PO BID 6 days #12 tabs 05/03/25 clavulanate 125 mg tablet Previous Rx's ?Medication ?Instructions ?Recorded ibuprofen 600 mg tablet 600 mg PO QID PRN pain #120 tabs 07/31/23 trazodone 150 mg tablet 37.5 mg (1/4 x 150 mg) PO DAILY 05/05/24 #90 tabs albuterol sulfate 90 mcg/actuation 2 puff inhalation Q6H PRN 12/30/24 aerosol inhaler shortness of breath or wheezing #6.7 grams lorazepam 0.5 mg tablet 0.5 mg PO TID PRN anxiety #20 tabs 12/30/24 amoxicillin 875 mg tablet 875 mg PO BID #20 tabs 04/30/25 fluconazole 100 mg tablet 100 mg PO DAILY #2 tabs 04/30/25 (Diflucan) amoxicillin 875 mg-potassium 1 tab PO BID 6 days #12 tabs 05/03/25 clavulanate 125 mg tablet Allergies Allergy/AdvReac Type Severity Reaction Status Date / Time Iodine and Iodide Containing AdvReac Mild cough Verified 05/03/25 17:17 Produc General Stated Complaint: EarProblem HARIKA: 4 Exam Narrative Exam Narrative: Gen: Awake and alert, in no apparent distress HEENT: Non-icteric sclera, PERRL, EOMs full and without nystagmus. The right ear canal has some flaking and wax production with mild edema and redness consistent with improving otitis externa. The visualized TM is without bulging, erythema, or purulence, though I do note some evidence of effusion. No tenderness over the mastoid process, no overlying skin changes to the scalp or right side of the face. Left TM is clear Neck: Supple, full range of motion Lungs: No apparent respiratory distress, normal respiratory effort. CV: Appears well perfused Abdomen: Non-distended MSK: Moves 4 extremities without apparent limitation in ROM Skin: Visualized skin without rashes, cyanosis. Neuro: Normal Gait, no obvious focal deficits or facial asymmetry. Speaks in full, clear sentences. Psych: Appropriate for situation. Course Vital Signs Vital signs: Vital Signs Temperature 36.7 C 05/03/25 17:11 Pulse 76 05/03/25 17:11 Blood Pressure 198/105 H 05/03/25 17:11 Pulse Oximetry 97 05/03/25 17:11 Temperature 36.7 C 05/03/25 17:28 Temperature Source Oral 05/03/25 17:28 Pulse 76 05/03/25 17:28 Blood Pressure 198/105 H 05/03/25 17:28 Blood Pressure Position Supine 05/03/25 17:28 Pulse Oximetry 97 05/03/25 17:28 Oxygen Delivery Method Room Air 05/03/25 17:28 Oxygen Flow Rate 0 05/03/25 17:28 Pain Level 7 05/03/25 17:28 Medical Decision Making This is a 74-year-old female patient with a history of asplenia presenting for evaluation of ongoing symptoms of otitis media and otitis externa. My differential includes but is not limited to ongoing outer and middle ear infections, I certainly considered incomplete antibiosis as she has only been taking oral antibiotics for 4 days. I do not know any systemic symptoms to increase my concern for malignant otitis externa. No evidence for TM perforation on my physical examination. Patient is systemically well and I have a low concern for bacteremia or sepsis. In a shared decision-making conversation with this patient regarding next [facility] management, as I feel it would be reasonable to continue the remainder of her amoxicillin course, but with her history of asplenia and immunosuppression it would also be reasonable to escalate her antibiosis given her ongoing symptoms. She has elected to change antibiotic, she will be started on Augmentin. I will provide her with a 1 week course for a total antibiotic duration of 10 days. I counseled the patient to continue her eardrops, she does not have any significant ear canal swelling that would dictate placement of another wick. On avoiding water getting into her ears, Tylenol and ibuprofen for pain, and at this time, the patient has had a full medical evaluation and is safe for discharge to home. They are hemodynamically stable, ambulatory, and tolerating PO. They are understanding of the follow-up plan and return precautions. They left our facility without incident. Sara Hassan MD [facility] All Active Problems (Updated 05/03/25 @ 17:38 by Sara Hassan MD) Otitis externa (Acute) Otitis media (Acute) Otitis externa of right ear (Acute) Migraine (Chronic) less severe in menopause Postmenopausal state (Acute) PCOS Dyspepsia and disorder of function of stomach (Acute) Hyperlipidemia (Acute) Primary osteoarthritis of right hip (Acute) Primary osteoarthritis of left knee (Acute) Osteoporosis (Chronic 10/25/22) Grief reaction (Acute) sudden loss of her 09/2022 Chest wall deformity (Acute) Medical History Hx of meningitis History of COVID-19 post covid fatigue History of giardia infection PSVT (paroxysmal supraventricular tachycardia) negative echo and holter monitor. Syncope (04/2021) due to heat and dehydration Closed fracture at wrist or hand level History of shingles Anxiety situational, not currently needing treatment Diarrhea Multiple trauma (01/03/17) 10/03. Horse riding injury. Multiple rib fx, ruptured spleen, left shoulder disloc. 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 Initial dose 2015 Family History Sister Heart disease [place] Hypertension Skin cancer Mother , age 87 Lung cancer Father , age 93 Prostate cancer Skin cancer Maternal Grandfather Alcohol abuse Paternal Grandfather No problems noted. Maternal Grandmother , age 104 No problems noted. Paternal Grandmother No problems noted. Social History Smoking/Tobacco Use Status: Former Tobacco Use tobacco type: cigarettes Quit Date: 11/19/73 Tobacco: How many years used: 2 Second Hand Exposure: Yes Smoking risk assessment performed?: Yes Alcohol Intake: current Alcohol Intake frequency: a few times a month Alcohol type: beer and wine Drug use: Rarely Substance use type: marijuana Adopted: No Caregiver/Support person: No Foster care: No Household members: spouse Housing: house Number of Children: 1 number of grandchildren: 2 Communication Needs: None Education Level: college Do you need help understanding health information?: Never 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 Pets and animals: Yes Pets and animals: cat(s) and horse(s) Sexually active: Yes Do you think of yourself as: straight/heterosexual Current gender identity: female What is your relationship status?: How often do you talk on the phone with friends or family?: three or more times per week How often do you get together with friends or relatives?: once per week How often do you attend restoration or adventism services?: decline to answer Do you belong to any clubs or organized social groups?: no Panel score (0-1 are the most socially isolated patients): 2 What type of physical activity do you participate in: other Details: gardening,farm chores Duration: decline to answer Frequency: decline to answer Aurora/Spiritism: No preference Special aurora needs: No Seatbelt use: always Helmet use: No Drive intox or ride w/intox delivery driver: No Do you feel safe at home: Yes Do you feel safe in your relationship?: Yes Additional Social history: Enjoys playing music/guitar. Previously rode horses until accident in 2014.
[2025-05-03] MEDS: Amox. 875/Clav. 125, 2 TABS/BTL 1 TAB PO (17:41)
== END 2025-05-03 17:51 | disposition home or self-care (01) ==
PROVIDERS: Emergency Provider Emergency Medicine; PCP Nurse Practitioner Family
DX: H66.91 Otitis media, unspecified, right ear (principal); H60.91 Unspecified otitis externa, right ear
CPT/HCPCS: 99283 ×2

== ENCOUNTER 2025-05-07 13:03 | Emergency (ER) | payer MEDICARE, SELFPAY ==
[2025-05-07 13:07] VITALS: BP 147/77; PULSE 74; RESP 18; TEMP 36.3; O2SAT 96
--- NOTE | 2025-05-07 14:00 | ED.GENADUL_ITS ---
Discharge Plan Disposition Patient Disposition: Home Condition: Good Discharge Details Clinical Impression: Pain, dental, Chronic pain in right ear Primary Care Provider: Jose Pandya ED Provider: Yosef Nevarez Home Meds and New Rx's Prescriptions: New amoxicillin-pot clavulanate 875-125 mg tablet 1 tab PO BID 10 Days Qty: 20 0RF No Action trazodone 150 mg tablet 37.5 mg PO DAILY Qty: 90 1RF Nurtec ODT 75 mg tablet,disintegrating 75 mg PO ONCE PRN Rx Instructions: as a single dose; not to exceed 1 dose per 24 hrs OR 15 doses per 30 days ibuprofen 600 mg tablet 600 mg PO QID PRN (Reason: pain) Qty: 120 0RF albuterol sulfate 90 mcg/actuation HFA aerosol inhaler 2 puff inhalation Q6H PRN (Reason: shortness of breath or wheezing) Qty: 6.7 0RF Fish Oil 500 MG capsule 1 tab PO DAILY Patient Comments: 05/29/18 Pt reports she only takes prn. ts 01/03/17 taking daily. md pt in too much pain to remember any medications, pt's unsure. Probiotic 1 EACH capsule, sprinkle 1 ea PO DAILY Patient Comments: 01/03/17 taking daily. md pt in too much pain to remember any medications, pt's unsure. Ostera 1 EACH tablet 1 ea PO DAILY coenzyme Q10 [Co Q-10] 10 MG capsule 10 mg PO DAILY Patient Comments: 05/29/18 Pt takes 100mg daily. ts riboflavin (vitamin B2) 50 MG tablet 50 mg PO DAILY Patient Comments: 05/29/18 Pt takes 100mg daily. ts Claritin-D 24 Hour 10-240 mg tablet extended release 24 hr 1 tab PO DAILY PRN lorazepam 0.5 mg tablet 0.5 mg PO TID PRN (Reason: anxiety) Qty: 20 0RF amoxicillin-pot clavulanate 875-125 mg tablet 1 tab PO BID 6 Days Qty: 12 0RF fluconazole [Diflucan] 100 mg tablet 100 mg PO DAILY Qty: 2 0RF Discharge Instructions Instructions: Dental Pain, TMJ Exercises Additional Instructions: At this time your ear infection is significantly improved, however there is evidence of a dental infection in your right lower molar. Please take Tylenol and Motrin as needed for pain. Please take the antibiotic as directed to help with the infection in your tooth. Please contact your dentist for close follow- up and assessment. We have placed a referral with the ENT physician for follow-up. Please perform the jaw stretching exercises that we discussed for TMJ. If you notice any worsening of your symptoms, or any new symptoms such as difficulty swallowing, difficulty breathing, vomiting, diarrhea, fever, chills, shortness of breath, chest pain, numbness, weakness, or fainting , please return immediately to the emergency department for reevaluation. Please follow up with your primary care provider as soon as possible for reassessment and reevaluation. As always, it was a pleasure participating in your medical care today. Referrals: Jose Pandya NP [Primary Care Provider, Medicine] Discharge Data Discharge Date/Time-TO BE ENTERED AT DEPARTURE: 05/07/25 14:11 HPI General Date/Time Provider Initiated Documentation: 05/07/25 13:16 . HPI Narrative: This is a pleasant 74-year-old female who presents today for right ear and jaw pain. Patient was initially diagnosed with otitis externa on 04/26/2025. She was started on antibiotic drops. Unfortunately pain continued and on 05/03/2025 she was diagnosed with otitis externa and otitis media. She has been taking Augmentin since then, and the drops. She only has 2 days left. She states that since taking the antibiotic the ear pain has certainly improved but is still mildly present. In addition to this she has also noticed pain in her right lower posterior molar and jaw. The pain in her molar and jaw is worse when she chews. This also been send some radiating pain up towards the right ear. She denies significant hearing changes. She denies fever or chills. No severe acute headache. No numbness or tingling. No vision changes. No history of HIV or trauma. No other complaints at this time. Related Data Home Medications ?Medication ?Instructions ?Recorded ?Confirmed omega-3 fatty acids 500 mg capsule 1 tab PO DAILY 03/0105/07/25 (Fish Oil) lactobacillus combo no.11 15 1 ea PO DAILY 08/13/15 billion cell sprinkle capsule (Probiotic) vitamin D3 500 unit-vit K 500 1 ea PO DAILY 01/03/17 0 05/07/25 mcg-berberine 90 mg-hops 370 mg tablet (Ostera) coenzyme Q10 10 mg capsule (Co 10 mg PO DAILY 05/29/18 05/07/25 Q-10) riboflavin (vitamin B2) 50 mg 50 mg PO DAILY 05/29/18 05/07/25 tablet loratadine-pseudoephedrine ER 10 1 tab PO DAILY PRN 05/07/25 mg-240 mg tablet,extended [id number] (Claritin-D 24 Hour) rimegepant 75 mg disintegrating 75 mg PO ONCE PRN 07/2105/07/25 tablet (Nurtec ODT) ibuprofen 600 mg tablet 600 mg PO QID PRN pain #120 tabs 07/31/23 05/07/25 trazodone 150 mg tablet 37.5 mg (1/4 x 150 mg) PO DA CONCEPCIÓN 05/05/24 05/07/25 #90 tabs albuterol sulfate 90 mcg/actuation 2 puff inhalation Q 6H PRN 12/30/24 05/07/25 aerosol inhaler shortness of breath or wheez ing #6.7 grams fluconazole 100 mg tablet 100 mg PO DAILY #2 tabs 04/1905/07/25 (Diflucan) amoxicillin 875 mg-potassium 1 tab PO BID 6 days #12 t abs 05/03/25 05/07/25 clavulanate 125 mg tablet amoxicillin 875 mg-potassium 1 tab PO BID 10 days #20 tabs 05/07/25 clavulanate 125 mg tablet lorazepam 0.5 mg tablet 0.5 mg PO TID PRN anxiety #2 0 tabs 05/08/25 Previous Rx's ?Medication ?Instructions ?Recorded ibuprofen 600 mg tablet 600 mg PO QID PRN pain #120 tabs 07/31/23 trazodone 150 mg tablet 37.5 mg (1/4 x 150 mg) PO DA CONCEPCIÓN 05/05/24 #90 tabs albuterol sulfate 90 mcg/actuation 2 puff inhalation Q 6H PRN 12/30/24 aerosol inhaler shortness of breath or wheez ing #6.7 grams fluconazole 100 mg tablet 100 mg PO DAILY #2 tabs 04/19 01/13 (Diflucan) amoxicillin 875 mg-potassium 1 tab PO BID 6 days #12 t abs 05/03/25 clavulanate 125 mg tablet amoxicillin 875 mg-potassium 1 tab PO BID 10 days #20 tabs 05/07/25 clavulanate 125 mg tablet lorazepam 0.5 mg tablet 0.5 mg PO TID PRN anxiety #2 0 tabs 05/08/25 Allergies Allergy/AdvReac Type Severity Reaction Status Date / Time Iodine and Iodide Containing AdvReac Mild cough Verified 05/07/25 13:11 Produc General Stated Complaint: EarProblem HARIKA: 4 Exam Narrative Exam Narrative: 1.Const: Well-nourished, Well-developed, appearing stated age 2.Eyes: PERRL, no conjunctival injection, and symmetrical lids. 3.ENT: Atraumatic external nose and ears. Moist MM. Neck: Symmetric, trachea midline, No thyromegaly. Patient's left tympanic membrane is gilliam and pearly, patient's right tympanic membrane is also gilliam and pearly with no evidence of significant effusion or erythema or Bulging. There is a small amount of wax in the otic canal, but there is also no evidence of otitis externa either on exam. She has no significant mastoid tenderness. Mild achiness around the TMJ though. Evaluation of her mouth demonstrates tenderness at the right posterior inferior molar. There does appear to be tenderness and a filling over the right posterior inferior molar. No periapical abscess. No other abnormalities. 4.CVS: +S1/S2, Peripheral pulses 2+ and equal in all extremities. Brisk capillary refill in all extremities. 5.RESP: Unlabored respiratory effort. Clear to auscultation bilaterally. No wheezes rales or rhonchi 6.GI: Soft, Nontender/Nondistended, No hepatosplenomegaly. No guarding or rebound. 7.MSK: Normocephalic/Atraumatic, Extremities w/o deformity or ttp No cyanosis or clubbing, Normal movement of all extremities 8.Skin: Warm, Dry. No rashes or lesions. 9.Neuro: nude model II-XII grossly intact. Sensation grossly intact, no focal neurologic deficits. 10.Psych: (AAO) x3. Appropriate mood and affect Course Vital Signs Vital signs: Vital Signs Temperature 36.3 C L 05/07/25 13:07 Pulse 74 05/07/25 13:07 Respiratory Rate 18 05/07/25 13:07 Blood Pressure 147/77 H 05/07/25 13:07 Pulse Oximetry 96 05/07/25 13:07 Temperature 36.3 C L 05/07/25 13:07 Temperature Source Oral 05/07/25 13:07 Pulse 74 05/07/25 13:07 Respiratory Rate 18 05/07/25 13:07 Blood Pressure 147/77 H 05/07/25 13:07 Blood Pressure Position Sitting 05/07/25 13:07 Pulse Oximetry 96 05/07/25 13:07 Oxygen Delivery Method Room Air 05/07/25 13:07 Oxygen Flow Rate 0 05/07/25 13:07 Pain Level 7 05/07/25 13:07 Medical Decision Making This is a pleasant 74-year-old female who presents today for right ear and jaw pain. Patient was initially diagnosed with otitis externa on 04/26/2025. She was started on antibiotic drops. Unfortunately pain continued and on 05/03/2025 she was diagnosed with otitis externa and otitis media. She has been taking Augmentin since then, and the drops. She only has 2 days left. She states that since taking the antibiotic the ear pain has certainly improved but is still mildly present. In addition to this she has also noticed pain in her right lower posterior molar and jaw. The pain in her molar and jaw is worse when she chews. This also been send some radiating pain up towards the right ear. She denies significant hearing changes. She denies fever or chills. No severe acute headache. No numbness or tingling. No vision changes. No history of HIV or trauma. No other complaints at this time. Patient's left tympanic membrane is gilliam and pearly, patient's right tympanic membrane is also gilliam and pearly with no evidence of significant effusion or erythema or Bulging. There is a small amount of wax in the otic canal, but there is also no evidence of otitis externa either on exam. She has no significant mastoid tenderness. Mild achiness around the TMJ though. Evaluation of her mouth demonstrates tenderness at the right posterior inferior molar. There does appear to be tenderness and a filling over the right posterior inferior molar. No periapical abscess. No other abnormalities. At this time symptoms appear notably clinically inconsistent with otitis media or otitis externa. No swelling mass or redness over the mastoid process to suggest acute mastoiditis. No neurologic deficit to suggest intracranial etiology. I do suspect there may be a component of mild TMJ, however more concerning is the potential for the dental pain, and the potential for periapical infection. As she has been on Augmentin this is appropriate therapy. However I do feel that she requires dental evaluation. She does have a dentist which she will contact and follow-up with. Recommend continued NSAID therapy, and close follow-up with dentist. We will give an additional prescription for Augmentin in case her symptoms worsen or return. Recommend completion of her current antibiotic regiment in the meantime. We will place ENT referral for her persistent ear pain. I have extensively reviewed the treatment plan and discharge instructions with the patient and their family. I have addressed all patient concerns at this time. The patient and family was made aware of what symptoms to monitor for that would warrant a return to the emergency department. Discussed the plan with the patient and family, they demonstrate verbal understanding and agreement with our assessment and plan at this time. The documentation in this chart was dictated using [employer] dictation software. Please excuse any dictation errors. PFSH All Active Problems (Updated 05/07/25 @ 14:01 by Yosef Nevarez DO) Chronic pain in right ear (Acute) Pain, dental (Acute) Otitis externa (Acute) Otitis media (Acute) Otitis externa of right ear (Acute) Migraine (Chronic) less severe in menopause Postmenopausal state (Acute) PCOS Dyspepsia and disorder of function of stomach (Acute) Hyperlipidemia (Acute) Primary osteoarthritis of right hip (Acute) Primary osteoarthritis of left knee (Acute) Osteoporosis (Chronic 10/25/22) Grief reaction (Acute) sudden loss of her 09/2022 Chest wall deformity (Acute) Medical History Hx of meningitis History of COVID-19 post covid fatigue History of giardia infection PSVT (paroxysmal supraventricular tachycardia) negative echo and holter monitor. Syncope (04/2021) due to heat and dehydration Closed fracture at wrist or hand level History of shingles Anxiety situational, not currently needing treatment Diarrhea Multiple trauma (01/03/17) 10/03. Horse riding injury. Multiple rib fx, ruptured spleen, left shoulder disloc. 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 Initial dose 2015 Family History Sister Heart disease HI Hypertension Skin cancer Mother , age 87 Lung cancer Father , age 93 Prostate cancer Skin cancer Maternal Grandfather Alcohol abuse Paternal Grandfather No problems noted. Maternal Grandmother , age 104 No problems noted. Paternal Grandmother No problems noted. Social History Smoking/Tobacco Use Status: Former Tobacco Use tobacco type: cigarettes Quit Date: 11/19/73 Tobacco: How many years used: 2 Second Hand Exposure: Yes Smoking risk assessment performed?: Yes Alcohol Intake: current Alcohol Intake frequency: a few times a month Alcohol type: beer and wine Drug use: Rarely Substance use type: marijuana Adopted: No Caregiver/Support person: No Foster care: No Household members: spouse Housing: house Number of Children: 1 number of grandchildren: 2 Communication Needs: None Education Level: college Do you need help understanding health information?: Never 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 Pets and animals: Yes Pets and animals: cat(s) and horse(s) Sexually active: Yes Do you think of yourself as: straight/heterosexual Current gender identity: female What is your relationship status?: How often do you talk on the phone with friends or family?: three or more times per week How often do you get together with friends or relatives?: once per week How often do you attend yazdanism or episcopalian services?: decline to answer Do you belong to any clubs or organized social groups?: no Panel score (0-1 are the most socially isolated patients): 2 What type of physical activity do you participate in: other Details: gardening,farm chores Duration: decline to answer Frequency: decline to answer Aurora/Holiness: No preference Special aurora needs: No Seatbelt use: always Helmet use: No Drive intox 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 Previously rode horses until accident in 2014.
[2025-05-07 14:01] VITALS: BP 147/77; PULSE 74; RESP 18; TEMP 36.3; O2SAT 96
== END 2025-05-07 14:11 | disposition home or self-care (01) ==
PROVIDERS: Emergency Provider Student in an Organized Health Care Education/Training Program; PCP Nurse Practitioner Family
DX: H92.01 Otalgia, right ear (principal); K08.89 Other specified disorders of teeth and supporting structures
CPT/HCPCS: 99283 ×2

== ENCOUNTER 2025-05-19 03:15 | Outpatient (CLI) | payer MEDICARE, SELFPAY ==
--- NOTE | 2025-05-19 06:00 | DI.MAMMO_ITS ---
Exam(s) MG MAMMO DIAGNOSTIC UNI EXAM: MG MAMMO DIAGNOSTIC UNI CLINICAL HISTORY: 6 mo f/u, f/u abnl mammo,lt breast nodularity,r92.8 TECHNIQUE: Left cc and MLO mammogram images were performed according to the usual protocol including computer analysis with CAD system, tomosynthesis and C- view imaging. COMPARISON: 2020 through October 2024 FINDINGS: Left breast is composed of heterogeneously dense fibroglandular tissue, breast density category C. No suspicious masses or suspicious microcalcifications are seen. No skin thickening or abnormal axillary lymph nodes are seen. IMPRESSION: BI-RADS Category 1, Negative mammogram Bilateral screening mammography is recommended, in 6 months. Breast Density - Category C - The breast are heterogeneously dense, which may obscure small masses. Breast density Category C or D implies that the patient has dense breast tissue. Dense breast tissue can make it harder to find cancer on a mammogram. Dense breast tissue is also associated with an increased risk of breast cancer. This information about the result of the mammogram report was provided to the patient to raise their awareness. Use this report when you speak with the patient about their risks for breast cancer, which includes their family history. At that time, you may recommend additional screening tests (Ultrasound or MRI) as these tests may add significant information. A negative radiographic report should not delay biopsy if a dominant or clinically suspicious mass is present. Up to ten percent of cancers are not identified on mammography. A negative report may reinforce clinical impression. Adenosis and dense breasts may obscure an underlying neoplasm. False positive reports average 6 to 10%. Patient will receive a letter notifying them of these results.
== END 2025-05-19 03:35 ==
PROVIDERS: PCP Nurse Practitioner Family; Visit Provider Nurse Practitioner Family
DX: Z09 Encounter for follow-up examination after completed treatment for conditions other than malignant neoplasm (principal); R92.8 Other abnormal and inconclusive findings on diagnostic imaging of breast
CPT/HCPCS: 77061; 77065; G0279

== ENCOUNTER 2025-06-05 00:24 | Outpatient (CLI) | payer MEDICARE, SELFPAY ==
--- NOTE | 2025-06-05 07:15 | DI.RAD_ITS ---
Exam(s) XR KNEE RT 3V AP,LAT,EMMANUEL EXAM: XR KNEE RT 3V AP,LAT,EMMANUEL CLINICAL HISTORY: fall onto knee 1 month ago,rt knee pain,[id number]. TECHNIQUE: 2D digital imaging was performed. COMPARISON: CR XR KNEE LT 3V AP,LAT,EMMANUEL from 04/20/2022 FINDINGS: 3 views No evidence of fracture. Small amount of increased joint fluid but no large joint effusion. There are moderate degenerative changes in all 3 compartments. Bone density normal. No osseous lesions. IMPRESSION: Moderate degenerative changes. Small joint effusion DATA REPOSITORY: RADIATION DOSE DELIVERED:
== END 2025-06-05 00:44 ==
LOC: DI 00:25
PROVIDERS: PCP Nurse Practitioner Family; Visit Provider Nurse Practitioner Family
DX: M25.561 Pain in right knee (principal)
CPT/HCPCS: 73562

== ENCOUNTER 2025-06-05 18:39 | Emergency (ER) | payer MEDICARE, SELFPAY ==
[2025-06-05 18:42] VITALS: BP 149/91; PULSE 95; RESP 16; TEMP 37; O2SAT 95
--- NOTE | 2025-06-05 19:02 | W.ED.GENAD ---
Discharge Plan Disposition Patient Disposition: Home Condition: Stable Discharge Details Clinical Impression: Laceration of left ankle Primary Care Provider: Jose Pandya ED Provider: Yosef Bermeo Home Meds and New Rx's Prescriptions: New cephalexin 500 mg capsule 500 mg PO QID 3 Days Qty: 12 0RF Continued Nurtec ODT 75 mg tablet,disintegrating 75 mg PO ONCE PRN Rx Instructions: as a single dose; not to exceed 1 dose per 24 hrs OR 15 doses per 30 days ibuprofen 600 mg tablet 600 mg PO QID PRN (Reason: pain) Qty: 120 0RF cholecalciferol (vitamin D3) 25 mcg (1,000 unit) capsule 25 mcg PO DAILY candesartan 4 mg tablet 4 mg PO BID Fish Oil 500 MG capsule 1 tab PO DAILY Patient Comments: 05/29/18 Pt reports she only takes prn. ts 01/03/17 taking daily. md pt in too much pain to remember any medications, pt's unsure. Probiotic 1 EACH capsule, sprinkle 1 ea PO DAILY Patient Comments: 01/03/17 taking daily. md pt in too much pain to remember any medications, pt's unsure. Ostera 1 EACH tablet 1 ea PO DAILY coenzyme Q10 [Co Q-10] 10 MG capsule 10 mg PO DAILY Patient Comments: 05/29/18 Pt takes 100mg daily. ts riboflavin (vitamin B2) 50 MG tablet 50 mg PO DAILY Patient Comments: 05/29/18 Pt takes 100mg daily. ts Claritin-D 24 Hour 10-240 mg tablet extended release 24 hr 1 tab PO DAILY PRN lorazepam 0.5 mg tablet 0.5 mg PO TID PRN (Reason: anxiety) Qty: 20 0RF Discharge Instructions Instructions: Cephalexin, Laceration Repair With Stitches ED Additional Instructions: You were seen in the emergency department for the laceration of your left medial ankle the wound was approximately 1 cm this was repaired with 3 sutures, you will need to return in 7 to 10 days for suture removal. Due to the contaminated nature of the wound that happened this morning we are placing you on 3 days of cephalexin, we gave you doses here and I sent a prescription for 3 days to your pharmacy. Please take Tylenol and ibuprofen as needed for any discomfort, for the first 24 to 48 hours please coat the wound with Neosporin or bacitracin ointment and place a bandage over it afterwards just use a Band-Aid. Please return for any signs of infection like increasing redness, red streaking up the leg, fever, drainage of pus from the wound. Referrals: Jose Pandya NP [Primary Care Provider, Medicine] Discharge Data Discharge Date/Time-TO BE ENTERED AT DEPARTURE: 06/05/25 20:51 HPI General Date/Time Provider Initiated Documentation: 06/05/25 19:02. HPI Narrative: 74 year-old female presents to ED today by POV/ambulating with a chief complaint of laceration to medial L heel/ankle while taking out the garbage earlier today- stopped bleeding for a while but opened back up this evening. Quality described as just bleeding, no severe pain or foreign body sensation, no radiation to numbness/tingling, other injury, fever, erythema, drainage of pus. Severity is described as mild. Palliating factors include nothing specific- simple bandage applied. Provoking factors include nothing specific. Events leading up to the incident/Associated Symptoms: Patient unsure of last Tdap. Patient not anticoagulated. Related Data Home Medications ?Medication ?Instructions ?Recorded ?Confirmed omega-3 fatty acids 500 mg capsule 1 tab PO DAILY 02/20/13 06/05/25 (Fish Oil) lactobacillus combo no.11 15 1 ea PO DAILY 08/13/15 06/05/25 billion cell sprinkle capsule (Probiotic) vitamin D3 500 unit-vit K 500 1 ea PO DAILY 01/03/17 06/05/25 mcg-berberine 90 mg-hops 370 mg tablet (Ostera) coenzyme Q10 10 mg capsule (Co 10 mg PO DAILY 05/29/18 06/05/25 Q-10) riboflavin (vitamin B2) 50 mg 50 mg PO DAILY 05/29/18 06/05/25 tablet loratadine-pseudoephedrine ER 10 1 tab PO DAILY PRN 09/06/18 06/05/25 mg-240 mg tablet,extended [id number] (Claritin-D 24 Hour) rimegepant 75 mg disintegrating 75 mg PO ONCE PRN 08/11/21 06/05/25 tablet (Nurtec ODT) ibuprofen 600 mg tablet 600 mg PO QID PRN pain #120 tabs 07/31/23 06/05/25 lorazepam 0.5 mg tablet 0.5 mg PO TID PRN anxiety #20 tabs 05/08/25 06/05/25 candesartan 4 mg tablet 4 mg PO BID 06/04/25 06/05/25 cholecalciferol (vitamin D3) 25 25 mcg PO DAILY 06/04/25 06/05/25 mcg (1,000 unit) capsule cephalexin 500 mg capsule 500 mg PO QID 3 days #12 caps 06/05/25 Previous Rx's ?Medication ?Instructions ?Recorded ibuprofen 600 mg tablet 600 mg PO QID PRN pain #120 tabs 07/31/23 lorazepam 0.5 mg tablet 0.5 mg PO TID PRN anxiety #20 tabs 05/08/25 cephalexin 500 mg capsule 500 mg PO QID 3 days #12 caps 06/05/25 Allergies Allergy/AdvReac Type Severity Reaction Status Date / Time Iodine and Iodide Containing AdvReac Mild cough Verified 06/05/25 18:45 Produc General Stated Complaint: Laceration HARIKA: 4 Review of Systems All systems reviewed & are unremarkable except as noted in HPI and below Exam Narrative Exam Narrative: GENERAL APPEARANCE: Well-nourished, non-toxic, awake and alert, atraumatic, no acute distress. SKIN: Warm, pink, dry, 1 cm linear laceration to the medial aspect of the left foot at the calcaneus below the ankle, mild oozing of blood, full range of motion foot, no bony tenderness or crepitus, no erythema surrounding the laceration HEAD: Normocephalic, atraumatic, normal hair distribution for gender/age. EYES: Normal conjunctiva, no exudates on lids/lashes. ENT: Nares patent, no circumoral cyanosis, no facial swelling NECK: Supple, trachea midline, painless cervical ROM. LUNGS/CHEST: Non-labored respirations, normal A/P diameter, symmetrical expansion, no chest wall deformity HEART (CV/PV): No peripheral edema, no JVD, L dorsalis pedis pulse 2+ ABDOMEN: Soft, non-distended, no guarding. MSK: Normal ROM, no swelling/deformity to bilateral UEs or LEs, moving all extremities without weakness, no cyanosis, spine midline without tenderness, normal curvature. NEURO: Mental Status AAOx4 - alert to person, place, time, events No facial droop, no forehead involvement. Motor: No focal weakness - strength 5/5 in bilateral UEs and LEs, proximal and distal, symmetric. Sensory: sensation intact to light touch globally. Gait normal: patient ambulated without ataxia into ED room. PSYCH: euthymic, cooperative, pleasant, appropriate speech Course Vital Signs Vital signs: Vital Signs Temperature 37.0 C 06/05/25 18:42 Pulse 95 H 06/05/25 18:42 Respiratory Rate 16 06/05/25 18:42 Blood Pressure 149/91 H 06/05/25 18:42 Pulse Oximetry 95 06/05/25 18:42 Temperature 37.0 C 06/05/25 18:42 Temperature Source Oral 06/05/25 18:42 Pulse 95 H 06/05/25 18:42 Respiratory Rate 16 06/05/25 18:42 Blood Pressure 149/91 H 06/05/25 18:42 Blood Pressure Position Sitting 06/05/25 18:42 Pulse Oximetry 95 06/05/25 18:42 Oxygen Delivery Method Room Air 06/05/25 18:42 Oxygen Flow Rate 0 06/05/25 18:42 Pain Level 4 06/05/25 18:42 Procedure Laceration Laceration 1: Provider that performed the procedure: Yosef Bermeo Standard Time Out Performed: No Patient Consented: Verbally Site: lower extremity Side (If applicable): left Description: linear and clean Depth: simple, single layer Local anesthetic: Lidocaine 1% Amount of anesthesia used (mL): 4 Pre-repair:: wound explored, irrigated extensively and deep structures intact Skin layer closed with: nylon Suture size: 4-0 Number of sutures:: 3 Technique: simple, interrupted Complications: None Medical Decision Making This dictation utilizes [id number] dictation software and may contain unedited grammatical errors. 74 year-old female presents to ED today by POV/ambulating with a chief complaint of laceration to medial L heel/ankle while taking out the garbage earlier today- stopped bleeding for a while but opened back up this evening. Quality described as just bleeding, no severe pain or foreign body sensation, no radiation to numbness/tingling, other injury, fever, erythema, drainage of pus. Severity is described as mild. Palliating factors include nothing specific- simple bandage applied. Provoking factors include nothing specific. Events leading up to the incident/Associated Symptoms: Patient unsure of last Tdap. Patients' medical history: Asplenia. Family and social history: Noncontributory. Pertinent exam findings / vital signs include 1 cm linear laceration to the medial aspect of the left foot at the calcaneus below the ankle, mild oozing of blood, full range of motion foot, no bony tenderness or crepitus, no erythema surrounding the laceration. Differential / pathologies of concern include laceration, foreign body. Diagnostic studies of: - XR L foot-no radiopaque foreign body visualized. Interventions of: - Suture repair with 3 sutures of 4-0 Ethilon. ED Course/Assessment/Plan: 74-year-old female presents with a minor 1 cm linear laceration to the medial aspect of her left heel, there is no foreign body seen on x-ray, wound was cleaned with dilute Betadine by syringe irrigation, approximated well with 3 sutures of 4-0 Ethilon recommended to return for suture removal in 7 to 10 days, placed on prophylactic antibiotics due to asplenia, strict return criteria for any signs of infection. Findings not consistent with infected wound, tendon rupture, foreign body retained. Disposition of laceration of left ankle. Patient verbalized understanding of the plan and return to ED criteria and engaged in shared decision making. Medical Records Medical records reviewed: Yes I reviewed the patient's medical records. Imaging Data Radiologic Study: Attestation: I personally reviewed and interpreted this imaging study as follows: Imaging: X-Ray Radiologist's impression: Exam: XR Left Ankle Exam date and time: 06/05/2025 7:36 PM Age: 74 years old Clinical indication: Pain; Ankle and other: Lac medial ankle ? foreign body; Left TECHNIQUE: Imaging protocol: Radiologic exam of the left ankle. Views: 3 or more views. COMPARISON: MR LOWER JOINT LT WO 10/26/2020 3:14 PM FINDINGS: Bones/joints: Normal. Soft tissues: Normal. IMPRESSION: No acute findings. Dictated and Authenticated by: Felix Medina MD. FOR[facility] All Active Problems (Updated 06/05/25 @ 20:21 by REBECCA Rubio) Laceration of left ankle (Acute) Abnormal mammogram (Acute) Pain in right axilla (Acute) Right knee pain (Acute) Mass of right axilla (Acute) TMJ arthralgia (Acute) Chronic pain in right ear (Acute) Pain, dental (Acute) Migraine (Chronic) less severe in menopause Postmenopausal state (Acute) PCOS Dyspepsia and disorder of function of stomach (Acute) Hyperlipidemia (Acute) Primary osteoarthritis of right hip (Acute) Primary osteoarthritis of left knee (Acute) Osteoporosis (Chronic 10/25/22) Grief reaction (Acute) sudden loss of her 09/2022 Chest wall deformity (Acute) Medical History Hx of meningitis History of COVID-19 post covid fatigue History of giardia infection PSVT (paroxysmal supraventricular tachycardia) negative echo and holter monitor. Syncope (04/2021) due to heat and dehydration Closed fracture at wrist or hand level History of shingles Anxiety situational, not currently needing treatment Diarrhea Multiple trauma (01/03/17) 10/03. Horse riding injury. Multiple rib fx, ruptured spleen, left shoulder disloc. 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 Initial dose 2015 Family History Sister Heart disease [place] Hypertension Skin cancer Mother , age 87 Lung cancer Father , age 93 Prostate cancer Skin cancer Maternal Grandfather Alcohol abuse Paternal Grandfather No problems noted. Maternal Grandmother , age 104 No problems noted. Paternal Grandmother No problems noted. Social History Smoking/Tobacco Use Status: Former Tobacco Use tobacco type: cigarettes Quit Date: 11/19/73 Tobacco: How many years used: 2 Second Hand Exposure: Yes Smoking risk assessment performed?: Yes Alcohol Intake: current Alcohol Intake frequency: a few times a month Alcohol type: beer and wine Drug use: Rarely Substance use type: marijuana Adopted: No Caregiver/Support person: No Foster care: No Household members: spouse Housing: house Number of Children: 1 number of grandchildren: 2 Communication Needs: None Education Level: college Do you need help understanding health information?: Never 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 Pets and animals: Yes Pets and animals: cat(s) and horse(s) Sexually active: Yes Do you think of yourself as: straight/heterosexual Current gender identity: female What is your relationship status?: How often do you talk on the phone with friends or family?: three or more times per week How often do you get together with friends or relatives?: once per week How often do you attend methodist or mosque services?: decline to answer Do you belong to any clubs or organized social groups?: no Panel score (0-1 are the most socially isolated patients): 2 What type of physical activity do you participate in: other Details: gardening,farm chores Duration: decline to answer Frequency: decline to answer Aurora/Taoism: No preference Special aurora needs: No Seatbelt use: always Helmet use: No Drive intox or ride w/intox salesperson driver: No Do you feel safe at home: Yes Do you feel safe in your relationship?: Yes Additional Social history: Enjoys playing music/guitar. Previously rode horses until accident in 2014.
[2025-06-05] MEDS: Lidocaine/Epinephri/Tetracaine Topical Gel 3 ML TP (19:47)
[2025-06-05] MEDS: Cephalexin 500 MG CAP PO ×3 (19:47→20:49)
--- NOTE | 2025-06-05 19:47 | DI.RAD_ITS ---
Exam(s) XR ANKLE LT COMPLETE EXAM: XR ANKLE LT COMPLETE CLINICAL HISTORY: lac medial ankle ?foreign body TECHNIQUE: 2D digital imaging was performed of the left ankle. Three images were obtained. AP, lateral and oblique views were obtained. COMPARISON: CR XR FOOT LT COMPLETE from 11/18/2020 FINDINGS: BONES: No acute fracture is present. No bony destructive lesion is seen. JOINTS:The ankle mortise is normally aligned. SOFT TISSUE: Normal. No radiopaque foreign bodies are identified. IMPRESSION: 1. Unremarkable radiographs of the left ankle. 2. The preliminary [facility] report was reviewed. DATA REPOSITORY: RADIATION DOSE DELIVERED:
[2025-06-05 20:51] VITALS: BP 171/92; PULSE 76; RESP 19; TEMP 36.6; O2SAT 99
--- NOTE | 2025-06-05 21:04 | DI.[facility]_ITS ---
PROCEDURE INFORMATION: Exam: XR Left Ankle Exam date and time: 06/05/2025 7:36 PM Age: 74 years old Clinical indication: Pain; Ankle and other: Lac medial ankle ? foreign body; Left TECHNIQUE: Imaging protocol: Radiologic exam of the left ankle. Views: 3 or more views. COMPARISON: MR LOWER JOINT LT WO 10/26/2020 3:14 PM FINDINGS: Bones/joints: Normal. Soft tissues: Normal. IMPRESSION: No acute findings. Dictated and Authenticated by: Felix Medina MD. Orderin Jean-Claude Navas MD
== END 2025-06-05 20:51 | disposition home or self-care (01) ==
PROVIDERS: Emergency Provider Physician Assistant; PCP Nurse Practitioner Family
DX: S91.012A Laceration without foreign body, left ankle, initial encounter (principal); W25.XXXA Contact with sharp glass, initial encounter; Y93.E9 Activity, other interior property and clothing maintenance; Y92.018 Other place in single-family (private) house as the place of occurrence of the external cause
CPT/HCPCS: 12001; 99283; 73610; J2004

== ENCOUNTER 2025-06-15 15:14 | Emergency (ER) | payer MEDICARE, SELFPAY ==
[2025-06-15] VITALS (23 sets, daily range): BP systolic 142–162; BP diastolic 78–108; PULSE 91–146; RESP 14–24; TEMP 37.4; O2SAT 96–99
--- NOTE | 2025-06-15 15:15 | RT.EKG_ITS ---
APPROVED REPORT Exam: Resting ECG Reason for Exam: Increased HR; palpitations Patient Location: E HR:144 bpm ECG Measurements Heart Rate 144 AXIS TN 74 P 0 QRSd 93 QRS -52 QT 357 T 47 QTc 554 Conclusion Sinus tachycardia...rate> 99 LAD, consider left anterior fascicular block...axis(240,-40), S>R II III aVF Repolarization abnormality, prob rate related...ST dep, T neg, tachycardia Prolonged QT interval...QTc >500mS Tachycardia, likely sinus, no clear P wave, left axis deviation, Prolonged QT, repolarization abnormality, likely rate related. When compared to prior 06/21/21 heart rate has increased, now with left axis deviation, QTc is prolonged. WD
[2025-06-15 16:50] LABS: Abs Immature Grans 0.01 10^3/uL (0.0-0.06); HCT 44.0 % (36.0-46.0); HGB 15.2 g/dL (11.2-15.7); Immature Grans % 0.1 %; MCH 30.2 pg (27.0-33.0); MCHC 34.5 % (32.0-36.0); MCV 87 fL (80-95); MPV 9.7 fL (8.0-11.0); Platelet Count 357 10^3/uL (130-400); RBC 5.04 10^6/uL (3.93-5.22); RDW 13.3 % (11.7-14.6); RDW-SD 42.3 fL; WBC 8.32 10^3/uL (4.4-10.8)
[2025-06-15] MEDS: Normal Saline 1,000 ML 1000 ML IV ×2 (16:53→18:02)
[2025-06-15 17:17] LABS: ALT 21 U/L (14-59); AST 16 U/L (15-37); Albumin 3.8 g/dL (3.4-5.0); Alkaline Phosphatase 114 U/L (46-116); Anion Gap 9.7 mmol/L (3-11); BUN 13 mg/dL (7-18); Bilirubin, Total 0.4 mg/dL (0.2-1.0); CO2 26.3 mmol/L (21.0-32.0); Calcium 9.4 mg/dL (8.5-10.1); Chloride 101 mmol/L (98-107); Estimated GFR 77.75 (mL/min/1.73m2); Glucose 89 mg/dL (74-106); Magnesium 2.2 mg/dL (1.8-2.4); Potassium 4.2 mmol/L (3.5-5.1); Sodium 137 mmol/L (136-145); TSH (W/Ref FT4) 2.07 uIU/mL (0.36-3.74); Total Protein 7.8 g/dL (6.4-8.2)
[2025-06-15 17:18] LABS: D-Dimer 502 ng/mlFEU (<500)
[2025-06-15 19:03] LABS: Glucose Negative (Negative)
--- NOTE | 2025-06-15 22:33 | ED.GENADUL_ITS ---
Discharge Plan Disposition Patient Disposition: Home Discharge Details Clinical Impression: Tachycardia, Cellulitis Primary Care Provider: Jose Pandya ED Provider: Yajaira Trejo Home Meds and New Rx's Prescriptions: New doxycycline hyclate 100 mg capsule 100 mg PO BID Qty: 14 0RF Continued Nurtec ODT 75 mg tablet,disintegrating 75 mg PO ONCE PRN Rx Instructions: as a single dose; not to exceed 1 dose per 24 hrs OR 15 doses per 30 days ibuprofen 600 mg tablet 600 mg PO QID PRN (Reason: pain) Qty: 120 0RF cholecalciferol (vitamin D3) 25 mcg (1,000 unit) capsule 25 mcg PO DAILY candesartan 4 mg tablet 4 mg PO BID Fish Oil 500 MG capsule 1 tab PO DAILY Patient Comments: 05/29/18 Pt reports she only takes prn. ts 01/03/17 taking daily. md pt in too much pain to remember any medications, pt's unsure. Probiotic 1 EACH capsule, sprinkle 1 ea PO DAILY Patient Comments: 01/03/17 taking daily. md pt in too much pain to remember any medications, pt's unsure. Ostera 1 EACH tablet 1 ea PO DAILY coenzyme Q10 [Co Q-10] 10 MG capsule 10 mg PO DAILY Patient Comments: 05/29/18 Pt takes 100mg daily. ts riboflavin (vitamin B2) 50 MG tablet 50 mg PO DAILY Patient Comments: 05/29/18 Pt takes 100mg daily. ts Claritin-D 24 Hour 10-240 mg tablet extended release 24 hr 1 tab PO DAILY PRN lorazepam 0.5 mg tablet 0.5 mg PO TID PRN (Reason: anxiety) Qty: 20 0RF Discharge Instructions Instructions: Cellulitis (Skin Infection), Adult ED Additional Instructions: Follow up with your doctor and ask them to order a Holter monitor or Zio patch to evaluate your heart rhythm Make sure you are drinking at least eight 8 ounce glasses of water daily Take the antibiotic as prescribed and make sure you are having yogurt or acidophilus daily to replete your bacteria in your gut magali You may apply bacitracin or Neosporin topically to your cut Allow it to air dry when you arrive home wash with soap and water daily Please follow up with Jose for reassessment this week and return earlier should you have new or worsening complaints Referrals: Jose Pandya NP [Primary Care Provider, Medicine] - 1 day HPI General Date/Time Provider Initiated Documentation: 06/15/25 15:43 . HPI Narrative: 74-year-old female presents for suture removal, palpitations, and lightheadedness. Sutures placed 10 days ago. Tetanus up to date. Negative x-ray for foreign body. Mild erythema and scant purulent drainage at laceration site. No abscess or lymphangitis. Asymptomatic from trauma years ago. Palpitations since this morning. History of tachycardia without evaluation. Given 2 L fluid and 16 ounces water in ER. Pulse improved from 140 to 94. Anxious. Lightheadedness without syncope. Denies , new medications, fever, or chills. Related Data Home Medications ?Medication ?Instructions ?Recorded ?Confirmed omega-3 fatty acids 500 mg capsule 1 tab PO DAILY 03/0106/05/25 (Fish Oil) lactobacillus combo no.11 15 1 ea PO DAILY 08/13/15 billion cell sprinkle capsule (Probiotic) vitamin D3 500 unit-vit K 500 1 ea PO DAILY 01/03/17 0 06/05/25 mcg-berberine 90 mg-hops 370 mg tablet (Ostera) coenzyme Q10 10 mg capsule (Co 10 mg PO DAILY 05/29/18 06/05/25 Q-10) riboflavin (vitamin B2) 50 mg 50 mg PO DAILY 05/29/18 06/05/25 tablet loratadine-pseudoephedrine ER 10 1 tab PO DAILY PRN 06/05/25 mg-240 mg tablet,extended [id number] (Claritin-D 24 Hour) rimegepant 75 mg disintegrating 75 mg PO ONCE PRN 07/2106/05/25 tablet (Nurtec ODT) ibuprofen 600 mg tablet 600 mg PO QID PRN pain #120 tabs 07/31/23 06/05/25 lorazepam 0.5 mg tablet 0.5 mg PO TID PRN anxiety #2 0 tabs 05/08/25 06/05/25 candesartan 4 mg tablet 4 mg PO BID 06/04/25 5 cholecalciferol (vitamin D3) 25 25 mcg PO DAILY 06/05/25 mcg (1,000 unit) capsule doxycycline hyclate 100 mg capsule 100 mg PO BID #14 c [facility] 06/15/25 Previous Rx's ?Medication ?Instructions ?Recorded ibuprofen 600 mg tablet 600 mg PO QID PRN pain #120 tabs 07/31/23 lorazepam 0.5 mg tablet 0.5 mg PO TID PRN anxiety #2 0 tabs 05/08/25 doxycycline hyclate 100 mg capsule 100 mg PO BID #14 c [facility] 06/15/25 Allergies Allergy/AdvReac Type Severity Reaction Status Date / Time Iodine and Iodide Containing AdvReac Mild cough Verified 06/05/25 18:45 Produc General Stated Complaint: Palpitatns HARIKA: 2 Exam Narrative Exam Narrative: General Appearance: Alert and oriented, no acute distress. Vital signs: Stable blood pressure, oxygen saturation 97%. HEENT: Oropharynx pink, uvula midline. Respiratory: Lungs clear. Gastrointestinal: No abdominal tenderness. Skin: Mild erythema and scant purulent drainage at laceration site. Neurological: Normal. Course Vital Signs Vital signs: Vital Signs Temperature 37.4 C 06/15/25 15:26 Pulse 145 H 06/15/25 15:26 Respiratory Rate 16 06/15/25 15:26 Blood Pressure 142/78 H 06/15/25 15:26 Pulse Oximetry 97 06/15/25 15:26 Temperature 37.4 C 06/15/25 15:26 Temperature Source Oral 06/15/25 15:26 Pulse 94 H 06/15/25 18:50 Pulse 101 H 06/15/25 18:40 Respiratory Rate 18 06/15/25 18:50 Blood Pressure 162/108 H 06/15/25 18:50 Blood Pressure Mean 126 06/15/25 18:50 Pulse Oximetry 97 06/15/25 18:50 Oxygen Delivery Method Room Air 06/15/25 18:50 Oxygen Flow Rate 0 06/15/25 18:50 Lab/Test Results Lab/Test Results: 06/15/25 15:54 Blood Blood Culture - Pending Laboratory Tests Range/Units 06/15/25 06/15/25 16:34 17:58 WBC (4.4-10.8) 10^3/uL 8.32 RBC (3.93-5.22) 10^6/uL 5.04 Hgb (11.2-15.7) g/dL 15.2 Hct (36.0-46.0) % 44.0 MCV (80-95) fL 87 MCH (27.0-33.0) pg 30.2 MCHC (32.0-36.0) % 34.5 RDW (11.7-14.6) % 13.3 Plt Count (130-400) 10^3/uL 357 MPV (8.0-11.0) fL 9.7 Immature Gran % % 0.1 Neutrophils % % 37.3 Lymphocytes % % 49.6 Monocytes % % 10.9 Eosinophils % % 1.4 Basophils % % 0.7 Nucleated RBC % (0.0-0.3) % 0.0 Absolute Neutrophils (1.2-6.7) 10^3/uL 3.09 Absolute Lymphocytes (1.2-3.4) 10^3/uL 4.13 H Absolute Monocytes (0.1-0.8) 10^3/uL 0.91 H Absolute Eosinophils (0.0-0.7) 10^3/uL 0.12 Absolute Basophils (0.0-0.2) 10^3/uL 0.06 D-Dimer (<500) ng/mlFEU 502 H VBG Lactate (<or=2.0) mmol/L 1.0 Sodium (136-145) mmol/L 137 Potassium (3.5-5.1) mmol/L 4.2 Chloride (98-107) mmol/L 101 Carbon Dioxide (21.0-32.0) mmol/L 26.3 Anion Gap (3-11) mmol/L 9.7 BUN (7-18) mg/dL 13 Creatinine (0.55-1.02) mg/dL 0.8 Est GFR (CKD-EPI 2020) (mL/min/1.73m2) 77.75 Glucose (74-106) mg/dL 89 Calcium (8.5-10.1) mg/dL 9.4 Magnesium (1.8-2.4) mg/dL 2.2 Total Bilirubin (0.2-1.0) mg/dL 0.4 AST (15-37) U/L 16 ALT (14-59) U/L 21 Alkaline Phosphatase (46-116) U/L 114 Total Protein (6.4-8.2) g/dL 7.8 Albumin (3.4-5.0) g/dL 3.8 TSH (0.36-3.74) uIU/mL 2.07 Urine Color (Yellow) Yellow Urine Clarity (Clear) Clear Urine pH (5-8) 7.0 Ur Specific [place] (1.005-1.025) 1.015 Urine Protein (Neg-Trace) mg/dL Negative Urine Ketones (Negative) mg/dL Negative Urine Blood (Negative) Negative Urine Nitrite (Negative) Negative Urine Bilirubin (Negative) Negative Urine Urobilinogen (Up to 0.2) mg/dL 0.2 Ur Leukocyte Esterase (Negative) Negative Urine Glucose (Negative) mg/dL Negative Medical Decision Making D-dimer negative (age-adjusted 502). CBC, CMP, and urinalysis negative. X-ray negative for foreign body. Initial Assessment: 74-year-old female presents for suture removal with mild erythema and scant purulent drainage. Reports palpitations and lightheadedness since this morning. Denies syncope, , new medications, fever, or chills. History of tachycardia without evaluation. Stable blood pressure, oxygen saturation 97%, D-dimer negative. Differential Diagnosis: - Cellulitis: Mild erythema and scant purulent drainage. Doxycycline prescribed. - Tachycardia: History of tachycardia, palpitations since morning. Given fluids, pulse improved from 140 to 94. Outpatient Holter monitor or Zio patch recommended. - Dehydration: Lightheadedness, minimal fluid intake. Given fluids. ED Course: - Sutures removed without incident. - Given fluids, pulse improved. - CBC, CMP, and urinalysis negative. Final Assessment: Sutures removed without incident. Given fluids, pulse improved. Doxycycline prescribed for likely cellulitis. Outpatient Holter monitor or Zio patch recommended for tachycardia evaluation. Clinical Impression: - Cellulitis - Tachycardia - Dehydration Disposition: - Discharge: Home. Return precautions reviewed, patient understands. - Follow-Up: Outpatient Holter monitor or Zio patch. Referral to primary care provider. Patient Education: Return precautions reviewed, patient understands. PFSH All Active Problems (Updated 06/15/25 @ 18:40 by REBECCA Hayes) Cellulitis (Acute) Tachycardia (Acute) Laceration of left ankle (Acute) Abnormal mammogram (Acute) Pain in right axilla (Acute) Right knee pain (Acute) Mass of right axilla (Acute) TMJ arthralgia (Acute) Migraine (Chronic) less severe in menopause Postmenopausal state (Acute) PCOS Dyspepsia and disorder of function of stomach (Acute) Hyperlipidemia (Acute) Primary osteoarthritis of right hip (Acute) Primary osteoarthritis of left knee (Acute) Osteoporosis (Chronic 10/25/22) Grief reaction (Acute) sudden loss of her 09/2022 Chest wall deformity (Acute) Medical History Hx of meningitis History of COVID-19 post covid fatigue History of giardia infection PSVT (paroxysmal supraventricular tachycardia) negative echo and holter monitor. Syncope (04/2021) due to heat and dehydration Closed fracture at wrist or hand level History of shingles Anxiety situational, not currently needing treatment Diarrhea Multiple trauma (01/03/17) 10/03. Horse riding injury. Multiple rib fx, ruptured spleen, left shoulder disloc. 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 Initial dose 2015 Family History Sister Heart disease [place] Hypertension Skin cancer Mother , age 87 Lung cancer Father , age 93 Prostate cancer Skin cancer Maternal Grandfather Alcohol abuse Paternal Grandfather No problems noted. Maternal Grandmother , age 104 No problems noted. Paternal Grandmother No problems noted. Social History Smoking/Tobacco Use Status: Former Tobacco Use tobacco type: cigarettes Quit Date: 11/19/73 Tobacco: How many years used: 2 Second Hand Exposure: Yes Smoking risk assessment performed?: Yes Alcohol Intake: current Alcohol Intake frequency: a few times a month Alcohol type: beer and wine Drug use: Rarely Substance use type: marijuana Adopted: No Caregiver/Support person: No Foster care: No Household members: spouse Housing: house Number of Children: 1 number of grandchildren: 2 Communication Needs: None Education Level: college Do you need help understanding health information?: Never 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 Pets and animals: Yes Pets and animals: cat(s) and horse(s) Sexually active: Yes Do you think of yourself as: straight/heterosexual Current gender identity: female What is your relationship status?: How often do you talk on the phone with friends or family?: three or more times per week How often do you get together with friends or relatives?: once per week How often do you attend mosque or congregation services?: decline to answer Do you belong to any clubs or organized social groups?: no Panel score (0-1 are the most socially isolated patients): 2 What type of physical activity do you participate in: other Details: gardening,farm chores Duration: decline to answer Frequency: decline to answer Aurora/Yazdanism: No preference Special aurora needs: No Seatbelt use: always Helmet use: No Drive intox or ride 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 Previously rode horses until accident in 2014. PAWSS Have you Been Recently Intoxicated or Drunk Within the Last 30 days?: No Have you Ever Experienced Previous Episodes of Alcohol Withdrawal?: No Have you ever Experienced Withdrawal Seizures?: No Have you ever Experienced Delirium Tremens(DT)s?: No Have you ever undergone Alcohol Rehabilitation Treatment (i.e, inpt ot outpatient treatment programs)?: No Have you ever Experienced Blackouts?: No Have you ever Combined Alcohol with other Downers within the last 90 days?: No Have you ever Combined Alcohol with any other Substance of Abuse during the last 90 days?: No Positive Blood Alcohol level on Presentation? [PCS.BAL]: Unable to Obtain Evidence of Increased Autonomic Activity (i.e. HR>120, tremor, sweating, agitation, nausea)?: No Result: 0
== END 2025-06-15 18:49 | disposition home or self-care (01) ==
PROVIDERS: Emergency Provider Physician Assistant; PCP Nurse Practitioner Family
DX: R00.0 Tachycardia, unspecified (principal); R42 Dizziness and giddiness; I10 Essential (primary) hypertension; L03.115 Cellulitis of right lower limb
CPT/HCPCS: 36415; 80053; 87040; 93005; 96360; 96361; 99284; 81003; 83605; 83735; 84443; 85025; 85379; 93010

== ENCOUNTER 2025-06-16 03:37 | Outpatient (CLI) | payer MEDICARE, SELFPAY ==
--- NOTE | 2025-06-16 14:50 | DI.MAMMO_ITS ---
Exam(s) MG MAMMO DIAGNOSTIC UNI US BREAST RT COMPLETE EXAM: MG MAMMO DIAGNOSTIC UNI - RIGHT and complete right breast ultrasound CLINICAL HISTORY: LUMP OF BREAST, lump axillary tail rt breast, N63.31. TECHNIQUE: Unilateral right breast CC and MLO mammographic images were obtained with 3D tomosynthesis technique and utilizing computer aided detection (CAD). COMPLETE RIGHT BREAST ultrasound WAS ALSO PERFORMED INCLUDING ALL 4 QUADRANTS, THE RETROAREOLAR REGION, AND THE RIGHT AXILLA COMPARISON: Prior mammograms were reviewed, the most recent being . Prior left breast ultrasound of 11/17/2024 was also reviewed (which was a negative complete left breast ultrasound at that time) This patient apparently feels a possible lump in her right axilla. FINDINGS: DIAGNOSTIC RIGHT BREAST MAMMOGRAM: Fibroglandular tissue pattern is again noted be dense. There are no CAD designations. There are no new spiculated masses nor malignant-appearing microcalcification groups in the right breast. There is no new significant architectural distortion or skin thickening-retraction. COMPLETE RIGHT BREAST ULTRASOUND: There is no evidence of solid or significant cystic lesions in all 4 quadrants of the right breast in the retroareolar region. Scanning of the entire right axilla reveals no significant focal findings. There are no solid or significant cystic lesions nor abnormal fluid collections and there is no lymphadenopathy evident. Indeed, there is not a single small lymph node evident the right axilla. We also scanned the left axilla which also revealed no lymph nodes. IMPRESSION: 1. No radiographic evidence of malignancy in the right breast. 2. Negative complete right breast ultrasound 3. Negative right breast ultrasound exam The patient was informed of the findings myself prior to leaving the department today. BI-RADS Category 2 - Benign Findings Breast Density - Category C - The breast are heterogeneously dense, which may obscure small masses. Breast density Category C or D implies that the patient has dense breast tissue. Dense breast tissue can make it harder to find cancer on a mammogram. Dense breast tissue is also associated with an increased risk of breast cancer. This information about the result of the mammogram report was provided to the patient to raise their awareness. Use this report when you speak with the patient about their risks for breast cancer, which includes their family history. At that time, you may recommend additional screening tests (Ultrasound or MRI) as these tests may add significant information. A negative radiographic report should not delay biopsy if a dominant or clinically suspicious mass is present. Up to ten percent of cancers are not identified on mammography. A negative report may reinforce clinical impression. Adenosis and dense breasts may obscure an underlying neoplasm. False positive reports average 6 to 10%. Patient will receive a letter notifying them of these results.
== END 2025-06-16 03:57 ==
LOC: DI 03:38
PROVIDERS: PCP Nurse Practitioner Family; Visit Provider Internal Medicine Cardiovascular Disease
DX: Z12.31 Encounter for screening mammogram for malignant neoplasm of breast (principal); N63.31 Unspecified lump in axillary tail of the right breast; R92.321 Mammographic fibroglandular density, right breast
CPT/HCPCS: 76642; 77061; 77065; G0279

== ENCOUNTER 2025-06-17 13:50 | Observation (INO) | payer MEDICARE, SELFPAY ==
[2025-06-17] VITALS (26 sets, daily range): BP systolic 135–155; BP diastolic 64–104; PULSE 72–153; RESP 16–34; TEMP 36.5–37.2; O2SAT 92–98
--- NOTE | 2025-06-17 13:45 | RT.EKG_ITS ---
APPROVED REPORT Exam: Resting ECG Reason for Exam: Elevated Heart Rate Patient Location: E HR:151 bpm ECG Measurements Heart Rate 151 AXIS RI 79 P 47 QRSd 88 QRS -30 QT 334 T 156 QTc 531 Conclusion Supraventricular tachycardia, likely a-fib, rate 151 PVCs Prolonged QTc 531ms No STEMI Q waves V1 - V2, unchanged from prior
[2025-06-17 14:45] LABS: Abs Immature Grans 0.02 10^3/uL (0.0-0.06); HCT 42.4 % (36.0-46.0); HGB 14.4 g/dL (11.2-15.7); Immature Grans % 0.2 %; MCH 29.9 pg (27.0-33.0); MCHC 34.0 % (32.0-36.0); MCV 88 fL (80-95); MPV 9.7 fL (8.0-11.0); Platelet Count 373 10^3/uL (130-400); RBC 4.82 10^6/uL (3.93-5.22); RDW 13.4 % (11.7-14.6); RDW-SD 43.7 fL; WBC 10.50 10^3/uL (4.4-10.8)
[2025-06-17] MEDS: Lactated Ringers 1,000 ML 1000 ML IV (14:50)
--- NOTE | 2025-06-17 14:55 | W.ED.GENAD ---
Discharge Plan Disposition Patient Disposition: Admit to [facility] Condition: Stable Discharge Details Clinical Impression: Atrial fibrillation and flutter Admit Date/Time: 06/17/25 17:33 Admit Provider: Fitz Torres Attending Provider: Fitz Torres Primary Care Provider: Jose Pandya ED Provider: Sara Hassan Discharge Data Discharge Date/Time-TO BE ENTERED AT DEPARTURE: 06/17/25 18:28 HPI General Mode of arrival: ambulatory. Date/Time Provider Initiated Documentation: 06/17/25 14:13. Limitations to Documentation: no limitations. Information obtained by: patient, family and old records reviewed. HPI Narrative: This is a 74-year-old female patient with a past medical history significant for hyperlipidemia, hypertension, and a history of tachycardia, not on any rate control agents or anticoagulants, who is presenting for evaluation of tachycardia, shortness of breath on exertion, and fatigue. The patient reports that she has been dealing with the symptoms on and off for some time, but they are increasing in frequency and now occur daily. She was seen in the emergency department a few days ago for cellulitis, was started on doxycycline and at that time was noted to have a heart rate in the 140s, which improved with fluids. She reports that she wakes up in the morning and can feel her heart pounding and racing, denies associated chest pain. She reports that she feels very winded on exertion, and has significant fatigue and decreased energy. The patient reports that she has no known cardiac history, and has not had a Holter monitor in the past. She states that she drinks half Tea, but does not consume an excessive amount of caffeine. She does not use any nicotine, tobacco. No substance use, denies supplements other than her vitamin B2, fish oil, and vitamin D. Related Data Home Medications ?Medication ?Instructions ?Recorded ?Confirmed omega-3 fatty acids 500 mg capsule 1 tab PO DAILY 02/20/13 06/17/25 (Fish Oil) lactobacillus combo no.11 15 1 ea PO DAILY 08/13/15 06/17/25 billion cell sprinkle capsule (Probiotic) vitamin D3 500 unit-vit K 500 1 ea PO DAILY 01/03/17 06/17/25 mcg-berberine 90 mg-hops 370 mg tablet (Ostera) coenzyme Q10 10 mg capsule (Co 10 mg PO DAILY 05/29/18 06/17/25 Q-10) riboflavin (vitamin B2) 50 mg 50 mg PO DAILY 05/29/18 06/17/25 tablet loratadine-pseudoephedrine ER 10 1 tab PO DAILY PRN 09/06/18 06/17/25 mg-240 mg tablet,extended [id number] (Claritin-D 24 Hour) rimegepant 75 mg disintegrating 75 mg PO ONCE PRN 08/11/21 06/17/25 tablet (Nurtec ODT) ibuprofen 600 mg tablet 600 mg PO QID PRN pain #120 tabs 07/31/23 06/17/25 lorazepam 0.5 mg tablet 0.5 mg PO TID PRN anxiety #20 tabs 05/08/25 06/17/25 cholecalciferol (vitamin D3) 25 25 mcg PO DAILY 06/04/25 06/17/25 mcg (1,000 unit) capsule doxycycline hyclate 100 mg capsule 100 mg PO BID #14 caps 06/15/25 06/17/25 candesartan 8 mg tablet 4 mg PO BID 06/17/25 06/17/25 Previous Rx's ?Medication ?Instructions ?Recorded ibuprofen 600 mg tablet 600 mg PO QID PRN pain #120 tabs 07/31/23 lorazepam 0.5 mg tablet 0.5 mg PO TID PRN anxiety #20 tabs 05/08/25 doxycycline hyclate 100 mg capsule 100 mg PO BID #14 caps 06/15/25 Allergies Allergy/AdvReac Type Severity Reaction Status Date / Time Iodine and Iodide Containing AdvReac Mild cough Verified 06/05/25 18:45 Produc General Stated Complaint: Arrhythmia HARIKA: 2 Exam Narrative Exam Narrative: Gen: Awake and alert, in no apparent distress HEENT: Non-icteric sclera Neck: Supple Lungs: No apparent respiratory distress, normal respiratory effort. Lung sounds clear and equal bilaterally CV: Appears well perfused, heart with a tachycardic rate and slightly irregular rhythm, strong distal pulses. Abdomen: Non-distended, soft MSK: Moves 4 extremities without apparent limitation in ROM. No peripheral edema, no unilateral calf swelling or tenderness Skin: Visualized skin without rashes, cyanosis. Neuro: Normal Gait, no obvious focal deficits or facial asymmetry. Speaks in full, clear sentences. Psych: Appropriate for situation. Course Vital Signs Vital signs: Vital Signs Temperature 36.7 C 06/17/25 14:07 Pulse 153 H 06/17/25 14:07 Respiratory Rate 20 06/17/25 14:07 Blood Pressure 139/90 06/17/25 14:07 Pulse Oximetry 94 06/17/25 14:07 Temperature 36.7 C 06/17/25 14:07 Temperature Source Oral 06/17/25 14:07 Pulse 153 H 06/17/25 14:07 Respiratory Rate 20 06/17/25 14:07 Blood Pressure 139/90 06/17/25 14:07 Blood Pressure Position Sitting 06/17/25 14:07 Pulse Oximetry 94 06/17/25 14:07 Oxygen Delivery Method Room Air 06/17/25 14:07 Oxygen Flow Rate 0 06/17/25 14:07 Lab/Test Results Lab/Test Results: Laboratory Tests Range/Units 06/17/25 14:30 WBC (4.4-10.8) 10^3/uL 10.50 RBC (3.93-5.22) 10^6/uL 4.82 Hgb (11.2-15.7) g/dL 14.4 Hct (36.0-46.0) % 42.4 MCV (80-95) fL 88 MCH (27.0-33.0) pg 29.9 MCHC (32.0-36.0) % 34.0 RDW (11.7-14.6) % 13.4 Plt Count (130-400) 10^3/uL 373 MPV (8.0-11.0) fL 9.7 Immature Gran % % 0.2 Neutrophils % % 63.8 Lymphocytes % % 26.4 Monocytes % % 7.9 Eosinophils % % 0.9 Basophils % % 0.8 Nucleated RBC % (0.0-0.3) % 0.0 Absolute Neutrophils (1.2-6.7) 10^3/uL 6.71 H Absolute Lymphocytes (1.2-3.4) 10^3/uL 2.77 Absolute Monocytes (0.1-0.8) 10^3/uL 0.83 H Absolute Eosinophils (0.0-0.7) 10^3/uL 0.09 Absolute Basophils (0.0-0.2) 10^3/uL 0.08 Medical Decision Making This is a 74-year-old female patient presenting for evaluation of tachycardia, dyspnea on exertion, and fatigue. Differential includes but is not limited to arrhythmia, including SVT, atrial fibrillation/flutter. Considered ACS, metabolic electrolyte derangement, dehydration, orthostasis. Considered anemia, pulmonary embolism, CHF. No significant supplement or substance identified on history to suggest effect of medication. At this time the patient is hemodynamically appropriate, and EKG was obtained which shows a supraventricular tachycardia, I am most suspicious for atrial fibrillation given the occasional irregularity, with no evidence for acute ischemia. We will provide the patient with a liter of IV fluids, and obtain labs to include CBC, CMP, magnesium, troponin, D-dimer, BNP, and TSH. -The patient's heart rate improved shortly after initiation of fluids, I note what appears to be an atrial flutter with a ventricular response rate of 70-80. She remains without low blood pressure, but is slightly tachypneic despite being at rest. Repeat EKG obtained, showing no acute ischemia and demonstrating the presumed flutter waves. I reviewed the patient's laboratory studies, and note no leukocytosis, anemia, or thrombocytopenia. D-dimer is elevated to 734, and we will proceed with CT pulmonary embolism study given her symptoms. I note no metabolic or electrolyte derangements, evidence of kidney dysfunction or liver disease. BNP is slightly elevated to 3500, no recent priors available. TSH within normal limits. Initial troponin negative. - The patient was unfortunately unable to get a CT with contrast due to a reported history of cough with iodine and iodine contrast. Bedside ultrasound performed, noting a moderately reduced ejection fraction and a plethoric IVC. Cardiology at [facility] was consulted, they recommend formal ultrasound in the morning and initiation of metoprolol 12.5 mg 4 times daily for rate control. They recommended a discussion with the patient regarding anticoagulation given her [id number] score of 2, putting her at an approximately 2.9% risk of stroke per year. They do not feel exceptionally strongly about pursuing premedication for CT contrast, given the patient will likely be anticoagulated anyways, and the lack of hypoxia. I reached out to the hospitalist who is graciously accepted this patient for admission to their service for her tachydysrhythmia. She remained hemodynamically improved while under my care and was transferred to the floor without incident. Sara Hassan MD Quality:SDOH Health Related Social Needs: Health related social needs lonely/isolated Health related social needs details Pt [place], so states feels lonely sometimes but does not need assistance. PFSH All Active Problems (Updated 06/18/25 @ 00:14 by Sara Hassan MD) Atrial fibrillation and flutter (Acute) DVT prophylaxis (Acute) Hypertension (Chronic) Cellulitis (Acute) Tachycardia (Acute) Laceration of left ankle (Acute) Abnormal mammogram (Acute) Pain in right axilla (Acute) Right knee pain (Acute) Mass of right axilla (Acute) TMJ arthralgia (Acute) Migraine (Chronic) less severe in menopause Postmenopausal state (Acute) PCOS Dyspepsia and disorder of function of stomach (Acute) Hyperlipidemia (Acute) Primary osteoarthritis of right hip (Acute) Primary osteoarthritis of left knee (Acute) Osteoporosis (Chronic 10/25/22) Grief reaction (Acute) sudden loss of her 09/2022 Chest wall deformity (Acute) Medical History Hx of meningitis History of COVID-19 post covid fatigue History of giardia infection PSVT (paroxysmal supraventricular tachycardia) negative echo and holter monitor. Syncope (04/2021) due to heat and dehydration Closed fracture at wrist or hand level History of shingles Anxiety situational, not currently needing treatment Diarrhea Multiple trauma (01/03/17) 10/03. Horse riding injury. Multiple rib fx, ruptured spleen, left shoulder disloc. 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 Initial dose 2015 Family History Sister Heart disease [place] Hypertension Skin cancer Mother , age 87 Lung cancer Father , age 93 Prostate cancer Skin cancer Maternal Grandfather Alcohol abuse Paternal Grandfather No problems noted. Maternal Grandmother , age 104 No problems noted. Paternal Grandmother No problems noted. Social History Smoking/Tobacco Use Status: Former Tobacco Use tobacco type: cigarettes Quit Date: 11/19/73 Tobacco: How many years used: 2 Second Hand Exposure: Yes Smoking risk assessment performed?: Yes Alcohol Intake: current Alcohol Intake frequency: a few times a month Alcohol type: beer and wine Drug use: Rarely Substance use type: marijuana Adopted: No Caregiver/Support person: No Foster care: No Household members: spouse Housing: house Number of Children: 1 number of grandchildren: 2 Communication Needs: None Education Level: college Do you need help understanding health information?: Never 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 Pets and animals: Yes Pets and animals: cat(s) and horse(s) Sexually active: Yes Do you think of yourself as: straight/heterosexual Current gender identity: female What is your relationship status?: How often do you talk on the phone with friends or family?: three or more times per week How often do you get together with friends or relatives?: once per week How often do you attend pentecostalism or restoration services?: decline to answer Do you belong to any clubs or organized social groups?: no Panel score (0-1 are the most socially isolated patients): 1 What type of physical activity do you participate in: other Details: gardening,farm chores Duration: decline to answer Frequency: decline to answer Aurora/Samaritan: No preference Special aurora needs: No Seatbelt use: always Helmet use: No Drive intox or ride w/intox funeral car driver: No Do you feel safe at home: Yes Do you feel safe in your relationship?: Yes Additional Social history: in 2022, had BF who is here supervisor warping department. Enjoys playing music/guitar/singing. Previously rode horses until accident in 2014. POCUS Exam (ED) Limited Cardiac Exam DATE OF EXAM: 06/18/25 TIME OF EXAM: 16:28 PROVIDER THAT PERFORMED THE STUDY: Sara Hassan REASON FOR EXAM: Congestive heart failure and Evaluation of LV function VISUALIZED STRUCTURES: Four Chambers, Aortic valve, Mitral valve, Interventricular septum and IVC VIEW OBTAINED: Apical 4-Chamber, Parasternal long-axis, Parasternal short-axis and Subxiphoid PERTINENT FINDINGS/IMPRESSION: LV dysfunction and Plethoric IVC Exam complete
[2025-06-17 15:08] LABS: INR 1.0 (0.9-1.1); Prothrombin Time 10.2 sec (9.1-11.1)
--- NOTE | 2025-06-17 15:15 | RT.EKG_ITS ---
APPROVED REPORT Exam: Resting ECG Reason for Exam: Repeat A fib Patient Location: E HR:73 bpm ECG Measurements Heart Rate 73 AXIS ND 138 P 0 QRSd 97 QRS -44 QT 394 T -62 QTc 435 Conclusion Atrial flutter, V-rate 73 No interval abnormalities No STEMI Compared to priors, rate has decreased
[2025-06-17 15:22] LABS: D-Dimer 734 ng/mlFEU (<500)
[2025-06-17 15:24] LABS: ALT 29 U/L (14-59); AST 19 U/L (15-37); Albumin 3.6 g/dL (3.4-5.0); Alkaline Phosphatase 111 U/L (46-116); Anion Gap 9.8 mmol/L (3-11); BUN 18 mg/dL (7-18); Bilirubin, Total 0.5 mg/dL (0.2-1.0); CO2 26.2 mmol/L (21.0-32.0); Calcium 9.4 mg/dL (8.5-10.1); Chloride 105 mmol/L (98-107); Estimated GFR 67.50 (mL/min/1.73m2); Glucose 127 mg/dL (74-106); Magnesium 2.0 mg/dL (1.8-2.4); NT-proBNP 3502 pg/mL (<300); Potassium 3.7 mmol/L (3.5-5.1); Sodium 141 mmol/L (136-145); TSH (W/Ref FT4) 1.54 uIU/mL (0.36-3.74); Total Protein 7.7 g/dL (6.4-8.2); Troponin I 15 ng/L (<or=51)
[2025-06-17 15:52] LABS: Troponin I 14 ng/L (<or=51)
[2025-06-17] MEDS: Metoprolol 12.5 MG TAB PO ×2 (17:22→22:21)
--- NOTE | 2025-06-17 17:36 | W.PM.HP.N ---
Date of service: 06/17/25 Time of Service: 17:36 Assessment and Plan Assessment and plan (1) Atrial fibrillation and flutter: Status: Acute Assessment and plan: New diagnosis, though symtpoms for months. EKGs reviewed with cardiology in ED, agree with diagnosis Strip now looks like atrial fibrillation. Trigger unclear, she has moderate EtOH, recent infection, some recent stresses. No ischemia on EKG, troponins reassuring. Borderline d-dimer, has contrast allergy. Low probability PE and she is starting anticoagulation, so I don't think worth doing CTA or V/Q. TSH normal. Some snoring but denies sleep apnea. healthy BMI. [id number] score 2. No h/o bleeding or bleeding risks, will start apixaban. admit, monitor, get echocardiogram, start metoprolol tatrate q 6 hr as per cardiology recommendations. (2) Hyperlipidemia: Status: Acute Assessment and plan: only using fish oil, given cardiac risks worth repeating, considering statin. (3) Hypertension: Status: Chronic Assessment and plan: Recently started therapy, felt low BP on candestartan so had stopped. Hold the ARB for now, see how she does with just metoprolol. (4) Cellulitis: Status: Acute Assessment and plan: Being treated for possible infected ankle wound. High risk with splenectomy. Doesn't look infected currently, but still open. Continue doxy. Wound care. (5) DVT prophylaxis: Status: Acute Assessment and plan: starting apixaban History of Present Illness History of Present Illness Chief Complaint: palpitations, SOB Narrative: 74 yo F with history of HTN, hyperlipidemia, s/p traumatic splenectomy, chronic migraines, and prevoius PSVT presenting with tachycardia, shortness of breath, and fatigue. She has had some noticable but subtle symtpoms for several months, like getting winded going up stairs and interemittent tachycardia and chest pounding. Over the past 2 weeks she has had worse RODRIGUES and fatigue along with more prominent tachycardia. No chest pain. No dizziness or syncope. She is comfortable at rest. She has some stress but not severe anxiety. No tremors, no change in weight, no fever/chills. Was seen 06/05 in ED for laceration of her left ankle. Was given cephelexin, but was seen again 06/15 and this was changed to doxycycline over concern it was mildly infected. It still hasn't healed. Prior to that she had a bad ear infection a couple months ago and required multiple courses of antibiotics. She also started the candestartan about a month ago after having HTN for 2 years, but stopped it 2 weeks ago as she felt lightheaded while taking it. No excessive caffiene. She does drink socially, a little more this week with partner staying with her, maybe 3 last night. In 2021 she presented with syncope diagnosed as vasovagal and was diagnosed with PSVT after having shelter monitor. She had a reassuring echocardiogram and nuclear stress test at that point and was reassured. Review of Systems All systems reviewed & are unremarkable except as noted in HPI and below Musculoskeletal Musculoskeletal: Reports arthralgias (arthritis hips/back chronically) PFSH All Active Problems Atrial fibrillation and flutter (Acute) DVT prophylaxis (Acute) Hypertension (Chronic) Cellulitis (Acute) Tachycardia (Acute) Laceration of left ankle (Acute) Abnormal mammogram (Acute) Pain in right axilla (Acute) Right knee pain (Acute) Mass of right axilla (Acute) TMJ arthralgia (Acute) Chest wall deformity (Acute) Grief reaction (Acute) sudden loss of her 09/2022 Osteoporosis (Chronic 10/25/22) Primary osteoarthritis of left knee (Acute) Primary osteoarthritis of right hip (Acute) Hyperlipidemia (Acute) Dyspepsia and disorder of function of stomach (Acute) Postmenopausal state (Acute) PCOS Migraine (Chronic) less severe in menopause Medical History Hx of meningitis History of COVID-19 post covid fatigue History of giardia infection PSVT (paroxysmal supraventricular tachycardia) negative echo and holter monitor. Syncope (04/2021) due to heat and dehydration Closed fracture at wrist or hand level History of shingles Anxiety situational, not currently needing treatment Diarrhea Multiple trauma (01/03/17) 10/03. Horse riding injury. Multiple rib fx, ruptured spleen, left shoulder disloc. 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 Initial dose 2015 Family History Sister Heart disease [place] Hypertension Skin cancer Mother , age 87 Lung cancer Father , age 93 Prostate cancer Skin cancer Maternal Grandfather Alcohol abuse Paternal Grandfather No problems noted. Maternal Grandmother , age 104 No problems noted. Paternal Grandmother No problems noted. Social History Smoking/Tobacco Use Status: Former Tobacco Use tobacco type: cigarettes Quit Date: 11/19/73 Tobacco: How many years used: 2 Second Hand Exposure: Yes Smoking risk assessment performed?: Yes Alcohol Intake: current Alcohol Intake frequency: a few times a month Alcohol type: beer and wine Drug use: Rarely Substance use type: marijuana Adopted: No Caregiver/Support person: No Foster care: No Household members: spouse Housing: house Number of Children: 1 number of grandchildren: 2 Communication Needs: None Education Level: college Do you need help understanding health information?: Never 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 Pets and animals: Yes Pets and animals: cat(s) and horse(s) Sexually active: Yes Do you think of yourself as: straight/heterosexual Current gender identity: female What is your relationship status?: How often do you talk on the phone with friends or family?: three or more times per week How often do you get together with friends or relatives?: once per week How often do you attend episcopal or hindu services?: decline to answer Do you belong to any clubs or organized social groups?: no Panel score (0-1 are the most socially isolated patients): 1 What type of physical activity do you participate in: other Details: gardening,farm chores Duration: decline to answer Frequency: decline to answer Aurora/Evangelical: No preference Special aurora needs: No Seatbelt use: always Helmet use: No Drive intox or ride w/intox flatbed company driver: No Do you feel safe at home: Yes Do you feel safe in your relationship?: Yes Additional Social history: in 2022, had BF who is here director of casework department. Enjoys playing music/guitar/singing. Previously rode horses until accident in 2014. Meds Allergies and Home Medications Allergies Allergy/AdvReac Type Severity Reaction Status Date / Time Iodine and Iodide Containing AdvReac Mild cough Verified 06/05/25 18:45 Produc Home Medications ?Medication ?Instructions ?Recorded ?Confirmed ?Type omega-3 fatty acids 500 mg capsule 1 tab PO DAILY 02/20/13 06/17/25 History (Fish Oil) lactobacillus combo no.11 15 1 ea PO DAILY 08/13/15 06/17/25 History billion cell sprinkle capsule (Probiotic) vitamin D3 500 unit-vit K 500 1 ea PO DAILY 01/03/17 06/17/25 History mcg-berberine 90 mg-hops 370 mg tablet (Ostera) coenzyme Q10 10 mg capsule (Co 10 mg PO DAILY 05/29/18 06/17/25 History Q-10) riboflavin (vitamin B2) 50 mg 50 mg PO DAILY 05/29/18 06/17/25 History tablet loratadine-pseudoephedrine ER 10 1 tab PO DAILY PRN 09/06/18 06/17/25 History mg-240 mg tablet,extended [id number] (Claritin-D 24 Hour) rimegepant 75 mg disintegrating 75 mg PO ONCE PRN 08/11/21 06/17/25 History tablet (Nurtec ODT) ibuprofen 600 mg tablet 600 mg PO QID PRN pain #120 tabs 07/31/23 06/17/25 Rx lorazepam 0.5 mg tablet 0.5 mg PO TID PRN anxiety #20 tabs 05/08/25 06/17/25 Rx cholecalciferol (vitamin D3) 25 25 mcg PO DAILY 06/04/25 06/17/25 History mcg (1,000 unit) capsule doxycycline hyclate 100 mg capsule 100 mg PO BID #14 caps 06/15/25 06/17/25 Rx candesartan 8 mg tablet 4 mg PO BID 06/17/25 06/17/25 History Exam Narrative Exam Narrative: GEN: Alert and oriented x 4, pleasant and cooperative, gives linear history. No acute distress at rest. HEENT: Head atraumatic. Conjunctiva clear, no icterus. PEERL, EOMI. no rhinorrhea. MMM, OP benign. Neck is supple with no masses or lymphadenopathy, trachea midline LUNGS: CTAB with normal effort CV: RRR with no murmurs, gallops, or rubs. ABD: active bowel sounds, soft, nontender and nondistended. No masses. Midline scar EXT: no cyanosis, clubbing, or edema MSK: No joint redness or swelling NEURO: CN 2-12 grossly intact. Normal movement of 4 extremities. Normal speech and coordination. No tremor SKIN: No rashes or open wounds x ~4mm open area of scar left ankle over malleolus, mildly erythematous, mild serous discharge. PSYCH: normal mood and affect Results Imaging EKG: report reviewed and image reviewed (14:12 SVT, atrial fib? 151, no STEMI. 17:24 Atrial flutter at 73, left axis, no ischemic ST-T changes) Labs 06/17/25 14:30 06/17/25 14:30 Labs: Laboratory Results - last 24 hr 06/17/25 06/17/25 06/17/25 14:30 15:25 17:38 WBC 10.50 RBC 4.82 Hgb 14.4 Hct 42.4 MCV 88 MCH 29.9 MCHC 34.0 RDW 13.4 Plt Count 373 MPV 9.7 Immature Gran % 0.2 Neutrophils % 63.8 Lymphocytes % 26.4 Monocytes % 7.9 Eosinophils % 0.9 Basophils % 0.8 Nucleated RBC % 0.0 Absolute Neutrophils 6.71 H Absolute Lymphocytes 2.77 Absolute Monocytes 0.83 H Absolute Eosinophils 0.09 Absolute Basophils 0.08 PT 10.2 INR 1.0 D-Dimer 734 H Sodium 141 Potassium 3.7 Chloride 105 Carbon Dioxide 26.2 Anion Gap 9.8 BUN 18 Creatinine 0.9 Est GFR (CKD-EPI 2020) 67.50 Glucose 127 H Calcium 9.4 Magnesium 2.0 Total Bilirubin 0.5 AST 19 ALT 29 Alkaline Phosphatase 111 Troponin I 15 14 Cancelled NT-Pro-B Natriuret Pep 3502 H Total Protein 7.7 Albumin 3.6 TSH 1.54 Last Vital Signs Temp 36.7 C 06/17/25 14:07 Pulse 95 H 06/17/25 16:40 Resp 22 06/17/25 16:40 BP 140/92 H 06/17/25 16:00 Pulse Ox 97 06/17/25 16:40 Time Spent Time spent with Patient: 55-74 minutes Time was spent: preparing to see the patient(eg.review tests), obtaining and/or reviewing separately otained hiistory, ordering medications,tests, procedures, referring, communicating with other health care process manager, indepentently interpreting results, counseling the patient and care coordination
--- NOTE | 2025-06-17 19:26 | W.PC.ACHO ---
Registration Status: ADM ASHUTOSH Primary Language: Preferred Language: Yoruba ED Information & Data Chief Complaint Arrhythmia 06/17/25 14:56 Triage Note Pt has been having 06/17/25 14:07 tachycardia, Reports weakness and SOB. Has been having tachycardia, reports that she has had tachycardia 150+ at times. 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) H/O ventral hernia repair (04/23/18) Most Recent Vital Signs Temperature 37.2 C 06/17/25 18:34 Temperature Source Tympanic 06/17/25 18:34 Pulse 72 06/17/25 18:34 Pulse Rhythm Irregular 06/17/25 18:50 Pulse 93 H 06/17/25 16:40 Respiratory Rate 17 06/17/25 18:34 Respiratory Effort Normal, Non-Labored 06/17/25 18:50 Respiratory Depth Normal 06/17/25 18:50 Respiratory Pattern Normal 06/17/25 18:50 Blood Pressure 148/98 H 06/17/25 18:40 Blood Pressure Mean 114 06/17/25 18:40 Blood Pressure Position Sitting 06/17/25 14:07 Pulse Oximetry 93 06/17/25 18:34 Oxygen Delivery Method Room Air 06/17/25 18:34 Oxygen Flow Rate 0 06/17/25 18:34 Pain Level 0 06/17/25 18:50 Allergies Iodine and Iodide Containing Produc Adverse Reaction (Mild, Verified 06/05/25 18:45) cough IV IV Catheter Type [Left Saline Lock Antecubital] IV Catheter Gauge [Left 20 Antecubital] Diet Orders Category Date Time Status Heart Healthy Eating [DIET] Nutrition 06/18/25 Breakfast Ordered Diagnostics 06/17/25 06/17/25 06/17/25 Range/Units 17:38 15:25 14:30 WBC 10.50 (4.4-10.8) 10^3/uL RBC 4.82 (3.93-5.22) 10^6/uL Hgb 14.4 (11.2-15.7) g/dL Hct 42.4 (36.0-46.0) % MCV 88 (80-95) fL MCH 29.9 (27.0-33.0) pg MCHC 34.0 (32.0-36.0) % RDW 13.4 (11.7-14.6) % Plt Count 373 (130-400) 10^3/uL MPV 9.7 (8.0-11.0) fL Immature Gran % 0.2 % Neutrophils % 63.8 % Lymphocytes % 26.4 % Monocytes % 7.9 % Eosinophils % 0.9 % Basophils % 0.8 % Nucleated RBC % 0.0 (0.0-0.3) % Absolute Neutrophils 6.71 H (1.2-6.7) 10^3/uL Absolute Lymphocytes 2.77 (1.2-3.4) 10^3/uL Absolute Monocytes 0.83 H (0.1-0.8) 10^3/uL Absolute Eosinophils 0.09 (0.0-0.7) 10^3/uL Absolute Basophils 0.08 (0.0-0.2) 10^3/uL PT 10.2 (9.1-11.1) sec INR 1.0 (0.9-1.1) D-Dimer 734 H (<500) ng/mlFEU Sodium 141 (136-145) mmol/L Potassium 3.7 (3.5-5.1) mmol/L Chloride 105 (98-107) mmol/L Carbon Dioxide 26.2 (21.0-32.0) mmol/L Anion Gap 9.8 (3-11) mmol/L BUN 18 (7-18) mg/dL Creatinine 0.9 (0.55-1.02) mg/dL Est GFR (CKD-EPI 2020) 67.50 (mL/min/1.73m2) Glucose 127 H (74-106) mg/dL Calcium 9.4 (8.5-10.1) mg/dL Magnesium 2.0 (1.8-2.4) mg/dL Total Bilirubin 0.5 (0.2-1.0) mg/dL AST 19 (15-37) U/L ALT 29 (14-59) U/L Alkaline Phosphatase 111 (46-116) U/L Troponin I Cancelled 14 15 (<or=51) ng/L NT-Pro-B Natriuret Pep 3502 H (<300) pg/mL Total Protein 7.7 (6.4-8.2) g/dL Albumin 3.6 (3.4-5.0) g/dL TSH 1.54 (0.36-3.74) uIU/mL Intake and Output - 24 Hour Total 06/17/25 13:50 thru 06/17/25 18:50 Weight 71.214 kg Other: Urine Appearance Clear Falls Risk Assessment History of Falls Previous History 06/17/25 18:50 Contributing Factors No Factors 06/17/25 18:50 Ambulatory Aids Independent 06/17/25 18:50 Tubes/Lines None 06/17/25 18:50 Gait Evaluation No gait disturbance 06/17/25 18:50 Cognition No cognitive impairment 06/17/25 18:50 Fall Total Score 15 06/17/25 18:50 Level of Risk Standard/Low Risk 06/17/25 18:50 Problems (Last Reviewed 06/17/25 @ 18:41 by Fitz Torres) Atrial fibrillation and flutter (Acute) Cellulitis (Acute) DVT prophylaxis (Acute) Hyperlipidemia (Acute) Hypertension (Chronic) v v v v v v v v v Sending and/or Receiving Nurses: Please use comment section below to note any information pertinent to the patient hand-off not included above. Information / Comments: Paged [phone]. Report received 1558. Pt arrived 1830. Admit Part 2 done. Report received from: [place] ED nurse
[2025-06-17] MEDS: Apixaban 5 MG TAB PO (20:39)
[2025-06-17] MEDS: Normal Saline Flush 10 ML SYR (20:39)
[2025-06-17] MEDS: Doxycycline Hyclate 100 MG CAP PO (20:39)
[2025-06-18] VITALS (10 sets, daily range): BP systolic 111–157; BP diastolic 70–108; PULSE 63–109; RESP 16–22; TEMP 36.2–37.6; O2SAT 94–99
--- NOTE | 2025-06-18 01:30 | RT.EKG_ITS ---
APPROVED REPORT Exam: Resting ECG Reason for Exam: sob Patient Location: I HR:71 bpm ECG Measurements Heart Rate 71 AXIS NE 146 P 75 QRSd 104 QRS -39 QT 404 T -40 QTc 439 Conclusion Sinus rhythm...normal P axis, V-rate 50- 99 RSR' in V1 or V2, probably normal variant...small R' only LVH with secondary repolarization abnormality...multi-LVH criteria, abnrm ST-T Baseline wander in lead(s) V6
--- NOTE | 2025-06-18 02:07 | W.EVENT ---
Date of service: 06/18/25 Time of Service: 02:07 Event Note: Called for increased SOB at rest. Wheezing per RN, which is new. On evaluation vitals stable, pulse up with activity as previous, but new wheezing diffusely on lung exam. She is anxious about what is happening to her. DDx is fluid excess (BNaP was high on admission), cardiac ischemia, reaction to metoprolol or less likely apixaban, which are her new medications. Repeat EKG looks like flutter, rate controlled, no significant change. CXR ordered stop metoprolol in case this triggered wheeze, can try diltiazem. added troponin to morning labs echo pendng in AM. Her lungs cleared after diuresis, but heart rate higher up to 170 with walking in room. Will go back to metoprolol for rate control starting with 2.5mg push. BP stable, slightly high. Time Spent with Patient Time spent in critical care(minutes): 30 Time Spent Included: Chart review, Documenting critically ill care and Time at immediate bedside
--- NOTE | 2025-06-18 02:13 | DI.RAD_ITS ---
Exam(s) XR PORTABLE CHEST AP EXAM: XR PORTABLE CHEST AP CLINICAL HISTORY: new wheezing, incr SOB. TECHNIQUE: 2D digital imaging was performed. COMPARISON: CT CT CHEST WO from 11/25/2024 CR XR STERNUM from 01/09/2025 FINDINGS: Single AP portable view. Heart size is upper normal. The mediastinum is not widened. There is the diffuse bilateral interstitial pulmonary edema pattern. No obvious pleural effusions. Multiple healed left-sided rib fractures noted and there is also the surgical plate across a prior lower left rib fracture site. IMPRESSION: Diffuse bilateral interstitial pulmonary edema. DATA REPOSITORY: RADIATION DOSE DELIVERED:
--- NOTE | 2025-06-18 02:32 | DI.VRAD_ITS ---
PROCEDURE INFORMATION: Exam: XR Chest Exam date and time: 06/18/2025 2:08 AM Age: 74 years old Clinical indication: Shortness of breath and wheezing; Prior surgery; Surgery date: 6+ months; Surgery type: Splenectomy; New wheezing, incr SOB TECHNIQUE: Imaging protocol: Radiologic exam of the chest. Views: 1 view. COMPARISON: CT CHEST WO 11/25/2024 2:58 PM FINDINGS: Lungs: There is extensive smooth thickening of the interlobular pulmonary septa with an appearance suggesting interstitial pulmonary edema. Clinical correlation is recommended. No region of focal consolidation is seen. Pleural spaces: The right costophrenic angle is obscured suggesting a possible small right pleural effusion. No left-sided pleural effusion or pneumothorax is demonstrated. Heart/Mediastinum: Normal-sized heart. Bones/joints: There are old left-sided rib fractures with surgical hardware transfixing an old lower posterior fracture. IMPRESSION: Diffuse interstitial pulmonary edema. Possible small right pleural effusion. Clinical correlation recommended. Dictated and Authenticated by: Trent Schulte MD. Orderin Melissa Byrnes MD
[2025-06-18] MEDS: Normal Saline Flush 10 ML SYR IVP ×3 (02:34→20:02)
[2025-06-18] MEDS: Furosemide 20 MG/2 ML VIAL IVP (02:34)
[2025-06-18] MEDS: dilTIAZem 30 MG TAB PO ×2 (05:30→20:01)
[2025-06-18 07:12] LABS: Calculated LDL 112 mg/dL (<100); Cholesterol 205 mg/dL (<200); HDL Cholesterol 78 mg/dL (>or=50); Triglyceride 77 mg/dL (<150)
[2025-06-18] MEDS: Metoprolol 5 MG/5 ML VIAL 2.5 MG IVP (08:16)
[2025-06-18] MEDS: Doxycycline Hyclate 100 MG CAP PO ×2 (08:18→20:01)
[2025-06-18] MEDS: Lactobacillus Acidophilus CAP 1 CAP PO (08:19)
[2025-06-18] MEDS: Apixaban 5 MG TAB PO ×2 (08:19→20:01)
[2025-06-18] MEDS: Metoprolol 12.5 MG TAB PO ×3 (08:19→20:00)
[2025-06-18] MEDS: Omega-3 Fatty Acids 1000 MG CAP PO (08:19)
[2025-06-18] MEDS: Cholecalciferol (Vitamin D3) 1,000 UNIT TAB 1000 UNITS PO (09:10)
[2025-06-18 09:30] LABS: Troponin I 17 ng/L (<or=51)
--- NOTE | 2025-06-18 09:50 | DI.US_ITS ---
APPROVED REPORT EXAM: Comprehensive 2D, Doppler, and color-flow Echocardiogram Patient Location: In-Patient Room/Bed: 230 Staff Analyst: Hi Loco RDCS (AE) Indications: Aflutter Conclusion Borderline concentric left ventricular hypertrophy. Ejection fraction is 55%. Wall motion is normal Normal right ventricular size and function Both atria are moderately enlarged There are no structural valvular abnormalities Mild mitral and tricuspid regurgitation Estimated right ventricular systolic pressure is 25 mmHg Ascending aorta measures 3.71 cm Wall motion Left Ventricle The left ventricle is normal size. The left ventricular systolic function is normal. The left ventricular ejection fraction is within the normal range. Borderline concentric left ventricular hypertrophy. There is normal LV segmental wall motion. There is no ventricular septal defect visualized. LVEF is 55%. Right Ventricle The right ventricle is normal size. The right ventricular systolic function is normal. Atria Left atrium is moderately dilated. Right atrium is moderately dilated. The interatrial septum is intact with no evidence for an atrial septal defect. Aortic Valve The aortic valve is normal in structure. Aortic valve is trileaflet. There is no aortic valvular stenosis. No aortic regurgitation is present. Mitral Valve The mitral valve is normal in structure. No evidence of mitral valve stenosis. Mild mitral regurgitation. Tricuspid Valve The tricuspid valve is normal in structure. There is no tricuspid valve stenosis. Mild tricuspid regurgitation. The RVSP is 25.3 mmHg. Pulmonic Valve The pulmonary valve is normal in structure. There is no pulmonic valvular stenosis. Trace pulmonic regurgitation. Great Vessels The aortic root is normal in size. The ascending aorta is mildly dilated. Aortic arch is normal in caliber. IVC is normal in size and collapses >50% with inspiration. Pericardium There is no pericardial effusion. 2D Dimensions IVSD d PLAX 1.19 cm F: 0.6-1.0 Ao Root d 2.84 cm F: 2.7 - 3.3 LVPW d PLAX 1.19 cm F: 0.6 - 1.0 Ao Asc Diam d 3.71 cm F: 2.3 - 3.1 LVID d PLAX 4.64 cm F: 3.8 - 5.2 LVDs 3.32 cm F: 2.2 - 3.5 LV EF Teichholz 54.9 % FS 28.42 % LV EDV (Teich) 99.5 mL LV ESV (Teich) 44.9 mL Stroke Vol Index (Teich) 29.98 M-Mode TAPSE 1.81 cm (M/F) >1.7 Auto EF LV EDV A4C 84.6 mL LV EDV A2C 105.2 mL LV EDV BP 97.2 mL LV ESV A4C 42.6 mL LV ESV A2C 52.5 mL LV ESV BP 47.5 mL LVEF(%) A4C 49.7 % LVEF(%) A2C 50.2 % LVEF(%) BP 51.1 % LV SV A4C 42.0 ml LV SV A2C 52.8 ml LV SV BP 49.6 ml LV CO A4C 3.2 L/min LV CO A2C 3.6 L/min LV CO BP 3.4 L/min HR A4C 75.79 BPM HR A2C 67.42 BPM LV EDV Index (BP) LA Volume LA Length A4C 4.7 cm LA Length A2C 5.4 cm LA Area A4C s 17.12 cm2 LA Area A2C s 17.15 cm2 LA Vol A4C A-L 53.00 mL LA Vol A2C A-L 46.11 mL LA Vol Biplane A-L 53.1 mL LA Vol/BSA A4C A-L LA Vol/BSA A2C A-L LA Vol/BSA BP A-L 29.2 mL/m2 LA Vol A4C MOD 49.2 mL LA Vol A2C MOD 44.0 mL LA Vol BP MOD 49.8 mL RA Volume RA Area A4C 14.5 cm2 RA ESV A4C (A-L) 42.4mL RA Vol/BSA A4C A-L RA Length A4C 4.2 cm RA ESV A4C (MOD) 42.0mL LV Diastology MV E' medial 0.062 (>0.07 m/s) MV E Vmax 0.70 (0.4-1.3 m/s) MV E/E' MED 11.35 (<14) MV E' lateral 0.099 (>0.1 m/s) MV E/E' LAT 7.10 (<14) MV E' Average 0.080 m/s MV E/E'(average) 8.73 Aortic Valve AoV Vmax 1.06 m/s LVOT Vmax 0.80 m/s AoV Peak Grad 4.5 mmHg LVOT Peak Grad 2.5 mmHg AoV Area (Vmax) 2.29 cm2 LVOT VTI 0.170 m AoV VTI 0.220 m LVOT Mean Grad 1.4 mmHg AoV Mean Jono. 0.80 m/s LVOT SV 51.80 mL AoV Mean Grad 2.8 mmHg LVOT Diam s 1.95 cm AoV Area (VTI) 2.35 cm2 AV Regurg Peak Gr. 4.51 mmHg Velocity Ratio 0.75 Mitral Valve MV DT 272 (160-240 msec) Pulmonary Valve PV Vmax 0.85 (0.5-1.5 m/s) RVOT Vmax 0.62 m/s PV Peak Grad 2.9 mmHg RVOT Peak Gr. 1.5 mmHg PV Mean Jono 0.54 m/s RVOT VTI 0.102 m PV Mean Grad 1.3 mmHg RVOT Mean Gr. 0.7 mmHg Tricuspid Valve RA Pressure 3.00 mmHg TR Vmax 2.36 m/s TR Peak Grad 22.3 mmHg RVSP (TR) 25.3 mmHg
--- NOTE | 2025-06-18 11:53 | CHAPLAIN ---
Marilee was sitting up at the edge of the bed, when I visited this morning. ALEJANDRINA Chaudhary, was giving her some medication. Marilee told me that she lives in [place]. She's from the [place] area and followed her sister up here, then another sister followed. Both sisters have since . Marilee's four years ago as well. She she has dealt with his and now enjoys living remotely where she doesn't see her neighbors. I explained my role and offered support.
--- NOTE | 2025-06-18 16:43 | CHAPLAIN ---
Marilee was resting in bed when I visited. She told me that her two and a half years ago. 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 Marilee said she retreated from the world for a while after her . 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 She said for a while she wasn't able to listen to music after her , even though it previously brought her comfort and maureen. Marilee said she has a friend from [place] who visited recently and he returned after she was admitted here. There are no other support people locally, she said. Marilee hopes to be discharged soon as she is performing at the [facility] in [place] on Sunday. We talked about her grief and her hopes.
--- NOTE | 2025-06-18 17:33 | W.PM.PROGNOT ---
Date of Service Date of service: 06/18/25 Time of Service: 17:33 Assessment and Plan Assessment and plan (1) Atrial fibrillation and flutter: Status: Acute Assessment and plan: New diagnosis, though symtpoms for months. EKGs reviewed with cardiology in ED, agree with diagnosis Strip now looks like atrial fibrillation. Trigger unclear, she has moderate EtOH, recent infection, some recent stresses. No ischemia on EKG, troponins reassuring. Borderline d-dimer, has contrast allergy. Low probability PE and she is starting anticoagulation, so I don't think worth doing CTA or V/Q. TSH normal. Some snoring but denies sleep apnea. healthy BMI. [id number] score 2. No h/o bleeding or bleeding risks, will start apixaban. admit, monitor, get echocardiogram, start metoprolol tatrate q 6 hr as per cardiology recommendations. 06/18/25 will add ccb and will change to longer acting lopressor 2/2 compliance agree with aflutter echo results: Conclusion Borderline concentric left ventricular hypertrophy. Ejection fraction is 55%. Wall motion is normal Normal right ventricular size and function Both atria are moderately enlarged There are no structural valvular abnormalities Mild mitral and tricuspid regurgitation Estimated right ventricular systolic pressure is 25 mmHg Ascending aorta measures 3.71 cm (2) Hyperlipidemia: Status: Acute Assessment and plan: only using fish oil, given cardiac risks worth repeating, considering statin. (3) Hypertension: Status: Chronic Assessment and plan: Recently started therapy, felt low BP on candestartan so had stopped. Hold the ARB for now, see how she does with just metoprolol. (4) Cellulitis: Status: Acute Assessment and plan: Being treated for possible infected ankle wound. High risk with splenectomy. Doesn't look infected currently, but still open. Continue doxy. Wound care. (5) DVT prophylaxis: Status: Acute Assessment and plan: starting apixaban Subjective Subjective Interval history since last seen: no new complaints, has not had palpitations today Exam Narrative Exam Narrative: GEN: Alert and oriented x 4, pleasant and cooperative, gives linear history. No acute distress at rest. HEENT: Head atraumatic. Conjunctiva clear, no icterus. PEERL, EOMI. no rhinorrhea. MMM, OP benign. Neck is supple with no masses or lymphadenopathy, trachea midline LUNGS: CTAB with normal effort CV: ir/ir no mrg. ABD: active bowel sounds, soft, nontender and nondistended. No masses. Midline scar EXT: no cyanosis, clubbing, or edema MSK: No joint redness or swelling NEURO: CN 2-12 grossly intact. Normal movement of 4 extremities. Normal speech and coordination. No tremor SKIN: No rashes or open wounds x ~4mm open area of scar left ankle over malleolus, mildly erythematous, mild serous discharge. PSYCH: normal mood and affect Objective Last Vital Signs Temp 36.7 C 06/18/25 15:57 Pulse 63 06/18/25 15:57 Resp 20 06/18/25 15:57 BP 127/74 06/18/25 15:57 Pulse Ox 99 06/18/25 15:57 Laboratory Results - last 24 hr 06/18/25 06:20 Troponin I 17 Triglycerides 77 Total Cholesterol 205 H LDL Cholesterol, Calc 112 H HDL Cholesterol 78 PAWSS Have you Been Recently Intoxicated or Drunk Within the Last 30 days?: Yes Have you Ever Experienced Previous Episodes of Alcohol Withdrawal?: No Have you ever Experienced Withdrawal Seizures?: No Have you ever Experienced Delirium Tremens(DT)s?: No Have you ever undergone Alcohol Rehabilitation Treatment (i.e, inpt ot outpatient treatment programs)?: No Have you ever Experienced Blackouts?: No Have you ever Combined Alcohol with other Downers within the last 90 days?: No Have you ever Combined Alcohol with any other Substance of Abuse during the last 90 days?: No Positive Blood Alcohol level on Presentation? [PCS.BAL]: No Evidence of Increased Autonomic Activity (i.e. HR>120, tremor, sweating, agitation, nausea)?: No Result: 1 Time Spent with Patient Time Spent with Patient: 25-34 minutes Time was spent: preparing to see the patient(eg.review tests), obtaining and/or reviewing separately otained hiistory, ordering medications,tests, procedures, referring, communicating with other health hemodialysis patient care specialist, indepentently interpreting results, counseling the patient and care coordination
--- NOTE | 2025-06-18 18:33 | PDOC.CMIN ---
Date of service: 06/18/25 Time of Service: 18:48 Care Management Initial Assmt Initial Assessment Reason for Hospitalization: Atrial flutter Functional Status/Living Situation Patient Presentation: Elizabeth who prefers 'Marilee' was sitting up in bed and awake when CM arrived. She presented to the ED for evaluation of tachycardia, shortness of breath on exertion, and fatigue. Marilee expressed that she presented two days prior (see ED note). Marilee was pleasent and willing to engage in conversation. She is living in [place] on her farm, alone; She reports her passed a few years prior. Marilee has 3 horses and tends to 50 acres of land. 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 Marilee states she is not affiliated with [employer] organizations and states she does not wish to be, at this time. Patient expressed concern with not having a cardiology consult. Per provider, Marilee will be started on new anticoagulation. CM will verify cost with pharmacy and present information to the patient. CM will continue to follow. 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 States the cost of medication can present a barrier. ) Physical Functioning/Mobility Assistive Device: none at baseline Advance Directives Advance Directives: Do you have an Advance Directive: N 03/26/13, 12:04 AD On File at [facility]: N 02/27/13, 15:07 Date Asked 06/17/25 06/17/25, 14:01 AD Date Reviewed COLST On File at [facility] No 06/05/25, 18:46 COLST Date Scanned Code Status Resuscitation Status Full Code Portal Pt does not currently have a portal and education provided: Yes Insurance Coverage/Financial Issues Insurance: BC/DAT [facility] Advantage - [id number] Care Team Visit Care Team Role Provider Type Jose Welch NP Primary Care Provider NURSE PRACTITIONER Sara Hassan MD Emergency Provider [facility] STAFF PHYSICIAN Fitz Torres Admit Provider [facility] STAFF PHYSICIAN Attending Provider Discharge Potential Discharge Needs: PCP F/U Appt Anticipated Barriers to Discharge: Medical Status Patient/Family Education Needs: Review discharge instructions, discuss Ask Me Three Transportation: Private vehicle Plan: Anticipate Marilee will be discharged home once medically ready with no new services. It is recommended she follows up with her community providers and discharge plan of care. She will transport via private vehicle by a friend. Social Determinants of Health Screening Social Determinants of health last assessed in clinic: 06/18/25 Will the Patient Participate in the Screening?: Yes Do you worry about having a steady place to live?: no Problems where you live: no known problems In the past 12 months, have you had to go without electric, gas, oil or water in your home?: no 1. Within the past 12 months, we worried whether our food would run out before we got money to buy more.: Never true 2. Within the past 12 months, the food we bought just didn't last and we didn't have money to get more.: Never true Has lack of transportation kept you from medical appointments or from doing things needed for daily living?: no Has anyone in your life made you feel unsafe or unsupported?: no How hard is it for you to pay for the very basics like food, housing, medical care, and heating? Would you say it is:: Not hard at all Do you want help finding or keeping work or a job?: I do not need or want help If for any reason you need help with day-to-day activities such as bathing, preparing meals, shopping, managing finances, etc., do you get the help you need?: I don?t need any help How often do you feel lonely or isolated from those around you?: Sometimes Do you speak a language other than Albanian at home?: No Does the patient want assistance with any of the above?: No Health Related Social Needs Health related social needs: feeling lonely/isolated (Z60.8) Health related social needs details: Pt lives alone on [place], so states feels lonely sometimes but does not need assistance. PFSH All Active Problems (Updated 06/18/25 @ 00:14 by Sara Hassan MD) Atrial fibrillation and flutter (Acute) DVT prophylaxis (Acute) Hypertension (Chronic) Cellulitis (Acute) Tachycardia (Acute) Laceration of left ankle (Acute) Abnormal mammogram (Acute) Pain in right axilla (Acute) Right knee pain (Acute) Mass of right axilla (Acute) TMJ arthralgia (Acute) Migraine (Chronic) less severe in menopause Postmenopausal state (Acute) PCOS Dyspepsia and disorder of function of stomach (Acute) Hyperlipidemia (Acute) Primary osteoarthritis of right hip (Acute) Primary osteoarthritis of left knee (Acute) Osteoporosis (Chronic 10/25/22) Grief reaction (Acute) sudden loss of her 09/2022 Chest wall deformity (Acute) Medical History Hx of meningitis History of COVID-19 post covid fatigue History of giardia infection PSVT (paroxysmal supraventricular tachycardia) negative echo and holter monitor. Syncope (04/2021) due to heat and dehydration Closed fracture at wrist or hand level History of shingles Anxiety situational, not currently needing treatment Diarrhea Multiple trauma (01/03/17) 10/03. Horse riding injury. Multiple rib fx, ruptured spleen, left shoulder disloc. 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 Initial dose 2015 Family History Sister Heart disease [place] Hypertension Skin cancer Mother , age 87 Lung cancer Father , age 93 Prostate cancer Skin cancer Maternal Grandfather Alcohol abuse Paternal Grandfather No problems noted. Maternal Grandmother , age 104 No problems noted. Paternal Grandmother No problems noted. Social History Smoking/Tobacco Use Status: Former Tobacco Use tobacco type: cigarettes Quit Date: 11/19/73 Tobacco: How many years used: 2 Second Hand Exposure: Yes Smoking risk assessment performed?: Yes Alcohol Intake: current Alcohol Intake frequency: a few times a month Alcohol type: beer and wine Drug use: Rarely Substance use type: marijuana Adopted: No Caregiver/Support person: No Foster care: No Household members: spouse Housing: house Number of Children: 1 number of grandchildren: 2 Communication Needs: None Education Level: college Do you need help understanding health information?: Never 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 Pets and animals: Yes Pets and animals: cat(s) and horse(s) Sexually active: Yes Do you think of yourself as: straight/heterosexual Current gender identity: female What is your relationship status?: How often do you talk on the phone with friends or family?: three or more times per week How often do you get together with friends or relatives?: once per week How often do you attend tenriism or samaritan services?: decline to answer Do you belong to any clubs or organized social groups?: no Panel score (0-1 are the most socially isolated patients): 1 What type of physical activity do you participate in: other Details: gardening,farm chores Duration: decline to answer Frequency: decline to answer Aurora/Scientologist: No preference Special aurora needs: No Seatbelt use: always Helmet use: No Drive intox or ride w/intox airport shuttle driver: No Do you feel safe at home: Yes Do you feel safe in your relationship?: Yes Additional Social history: in 2022, had BF who is here patient partner. Enjoys playing music/guitar/singing. Previously rode horses until accident in 2014. Readmission Within the Past 30 Days Yes or No: No
[2025-06-19 02:02] VITALS: BP 139/86; PULSE 76; RESP 20; TEMP 36.1; O2SAT 96
[2025-06-19] MEDS: Metoprolol 12.5 MG TAB PO ×2 (02:06→08:38)
[2025-06-19 07:42] VITALS: BP 141/79; PULSE 61; RESP 18; TEMP 36.7; O2SAT 99
[2025-06-19 08:26] VITALS: BP 140/98; PULSE 77; RESP 18; TEMP 36.4; O2SAT 97
[2025-06-19] MEDS: Omega-3 Fatty Acids 1000 MG CAP PO (08:38)
[2025-06-19] MEDS: Doxycycline Hyclate 100 MG CAP PO (08:38)
[2025-06-19] MEDS: Lactobacillus Acidophilus CAP 1 CAP PO (08:38)
[2025-06-19] MEDS: Apixaban 5 MG TAB PO (08:39)
[2025-06-19] MEDS: Cholecalciferol (Vitamin D3) 1,000 UNIT TAB 1000 UNITS PO (08:39)
[2025-06-19] MEDS: dilTIAZem 30 MG TAB PO (08:40)
[2025-06-19] MEDS: Normal Saline Flush 10 ML SYR IVP (08:40)
--- NOTE | 2025-06-19 10:44 | CMDISCH_ITS ---
Date of service: 06/19/25 Time of Service: 10:44 LACE Index Scoring Tool Questions: Length of Stay (in days): 2 Was the patient admitted via the E.D.?: Yes E.D. Visits: 7 Answers: Total Score: 9 Risk of Readmission: Low Risk Care Management Discharge Plan Reason for Hospitalization: atrial flutter Discharge Plan: Marilee will be discharged home today with no new services. Per provider, it is recommended she beings on new Eliquis. CM obtained new medi cation cost from the pharmacy, her copay is $20, CM faxed a 30 day free trial coupon which Elizabeth will follow up on; Patient is aware and agreeable to this plan. It is recommended she follows up with her community providers and discharge plan of care. She will transport via private vehicle by a friend. Patient/Family Education Needs: Review of discharge instructions, activity, limitations, and plan of care. Discuss ask me three. SDOH Health Related Social Needs: Health related social needs lonely/isolated Health related social needs details Pt [place], so states feels lonely sometimes but does not need assistance. Health related social needs details: Pt lives alone [place], so states feels lonely sometimes but does not need assistance.
--- NOTE | 2025-06-19 10:57 | W.PM.DS.N ---
Date of service: 06/19/25 Time of Service: 10:57 DS: Diagnosis Discharge Diagnosis (1) Atrial fibrillation and flutter: Status: Acute (2) Hyperlipidemia: Status: Acute (3) Hypertension: Status: Chronic (4) Cellulitis: Status: Acute (5) DVT prophylaxis: Status: Acute Discharge Plan Disposition Patient Disposition: Home Condition: Stable Discharge Details Reason For Visit: atrial flutter Admit Date/Time: 06/17/25 17:33 Admit Provider: Fitz Torres Attending Provider: Fitz Torres Primary Care Provider: Jose Pandya Hospital Course Hospital Course: This is a 74-year-old female who was admitted on 17 June for atrial fibrillation. While she was in the hospital she did get an echocardiogram done and I will add this result to the bottom of this document. Patient was controlled with beta-isidro as well as Cardizem. On 19 June she has to be discharged home to which we agreed. Patient was consistently with a heart rate under 100 at the time of discharge. In regards to her diagnostic information her D-dimer was mildly elevated at a value of 734. Total cholesterol was 205 with LDL at 112. While she was here she was also treated for cellulitis for which she was on doxycycline before admission and continued throughout her stay. In regards to her disposition I will discharge her home but recommend follow-up with electrophysiology in [facility] or [facility] as soon as possible. I will discharge her on low dose of Cardizem as well as Lopressor. She also go home with a prescription for Eliquis. It does look like she could benefit from a statin but the patient is very anxious about starting multiple medications at a time so we will defer this at this point. Home Meds and New Rx's Prescriptions: New Eliquis 5 mg Tablet 5 mg PO BID Qty: 60 0RF diltiazem HCl [Cardizem CD] 120 mg capsule,extended release 24hr 120 mg PO DAILY Qty: 30 0RF metoprolol tartrate 25 mg tablet 25 mg PO BID Qty: 60 0RF lisinopril 2.5 mg tablet 2.5 mg PO DAILY Qty: 30 0RF Continued Nurtec ODT 75 mg tablet,disintegrating 75 mg PO ONCE PRN Rx Instructions: as a single dose; not to exceed 1 dose per 24 hrs OR 15 doses per 30 days ibuprofen 600 mg tablet 600 mg PO QID PRN (Reason: pain) Qty: 120 0RF cholecalciferol (vitamin D3) 25 mcg (1,000 unit) capsule 25 mcg PO DAILY Fish Oil 500 MG capsule 1 tab PO DAILY Patient Comments: 05/29/18 Pt reports she only takes prn. ts 01/03/17 taking daily. md pt in too much pain to remember any medications, pt's unsure. Probiotic 1 EACH capsule, sprinkle 1 ea PO DAILY Patient Comments: 01/03/17 taking daily. md pt in too much pain to remember any medications, pt's unsure. Ostera 1 EACH tablet 1 ea PO DAILY coenzyme Q10 [Co Q-10] 10 MG capsule 10 mg PO DAILY Patient Comments: 05/29/18 Pt takes 100mg daily. ts riboflavin (vitamin B2) 50 MG tablet 50 mg PO DAILY Patient Comments: 05/29/18 Pt takes 100mg daily. ts Claritin-D 24 Hour 10-240 mg tablet extended release 24 hr 1 tab PO DAILY PRN lorazepam 0.5 mg tablet 0.5 mg PO TID PRN (Reason: anxiety) Qty: 20 0RF doxycycline hyclate 100 mg capsule 100 mg PO BID Qty: 14 0RF Discontinued candesartan 8 mg tablet 4 mg PO BID Discharge Instructions Stand Alone Forms: Nursing Discharge Form Referrals: [facility]OLOG[place],[facility] [place]OTHER, Cardiology] Referral Note: Recommend follow up with EP as soon as possible. Jose Pandya NP [Primary Care Provider, Medicine] Referral Note: follow up in 5-7 days Activity:: Activity as Tolerated Equipment/Supplies:: No Equipment Needed Diet:: As Tolerated Discharge Orders Discharge Orders: Discharge Order (Routine); Ordered 06/19/25 Ordered By: Daron Ely DS: Summary Time Spent with Patient providing and/or coordinating discharge services: Greater than 30 minutes Status at Discharge Functional status at discharge: independent ambulation Overall status at discharge: patient is back to baseline Mental Status: mental status grossly normal Speech and Movement: speech and movement normal Mood: congruent mood Affect: normal affect Quality:SDOH Health Related Social Needs: Health related social needs lonely/isolated Health related social needs details Pt [place] alone [place], so states feels lonely sometimes but does not need assistance. Health related social needs details: Pt lives alone [place], so states feels lonely sometimes but does not need assistance. Exam Narrative Exam Narrative: GEN: Alert and oriented x 4, pleasant and cooperative, gives linear history. No acute distress at rest. HEENT: Head atraumatic. Conjunctiva clear, no icterus. PEERL, EOMI. no rhinorrhea. MMM, OP benign. Neck is supple with no masses or lymphadenopathy, trachea midline LUNGS: CTAB with normal effort CV: ir/ir no mrg. ABD: active bowel sounds, soft, nontender and nondistended. No masses. Midline scar EXT: no cyanosis, clubbing, or edema MSK: No joint redness or swelling NEURO: CN 2-12 grossly intact. Normal movement of 4 extremities. Normal speech and coordination. No tremor SKIN: No rashes or open wounds x ~4mm open area of scar left ankle over malleolus, mildly erythematous, mild serous discharge. PSYCH: normal mood and affect Psych Mental Status: mental status grossly normal Speech and Movement: speech and movement normal Mood: congruent mood Affect: normal affect DS: Data Vitals/I&O Vitals and I&O: Vital Signs Temperature 36.4 C L 06/19/25 08:26 Temperature Source Tympanic 06/19/25 08:26 Pulse 77 06/19/25 08:26 Pulse Rhythm Irregular 06/17/25 18:50 Pulse 93 H 06/17/25 16:40 Respiratory Rate 18 06/19/25 08:26 Respiratory Effort Normal, Non-Labored 06/17/25 18:50 Respiratory Depth Normal 06/17/25 18:50 Respiratory Pattern Normal 06/17/25 18:50 Blood Pressure 140/98 H 06/19/25 08:26 Blood Pressure Mean 112 06/19/25 08:26 Blood Pressure Position Sitting 06/17/25 14:07 Pulse Oximetry 97 06/19/25 08:26 Oxygen Delivery Method Room Air 06/19/25 08:26 Oxygen Flow Rate 0 06/19/25 08:26 Pain Level 0 06/18/25 15:57 Comment rn notified 06/19/25 07:42 Intake & Output 06/18/25 06/18/25 06/19/25 11:59 23:59 11:59 Intake Total Output Total 3300 / 3300 Balance -3290 / -3270 20 2883 Weight 72.1 kg Intake: IV Output: Urine 3300 / 3300 Other: Urine Color Pale Urine Appearance Clear PFSH All Active Problems (Updated 06/18/25 @ 00:14 by Sara Hassan MD) Atrial fibrillation and flutter (Acute) DVT prophylaxis (Acute) Hypertension (Chronic) Cellulitis (Acute) Tachycardia (Acute) Laceration of left ankle (Acute) Abnormal mammogram (Acute) Pain in right axilla (Acute) Right knee pain (Acute) Mass of right axilla (Acute) TMJ arthralgia (Acute) Migraine (Chronic) less severe in menopause Postmenopausal state (Acute) PCOS Dyspepsia and disorder of function of stomach (Acute) Hyperlipidemia (Acute) Primary osteoarthritis of right hip (Acute) Primary osteoarthritis of left knee (Acute) Osteoporosis (Chronic 10/25/22) Grief reaction (Acute) sudden loss of her 09/2022 Chest wall deformity (Acute) Medical History Hx of meningitis History of COVID-19 post covid fatigue History of giardia infection PSVT (paroxysmal supraventricular tachycardia) negative echo and holter monitor. Syncope (04/2021) due to heat and dehydration Closed fracture at wrist or hand level History of shingles Anxiety situational, not currently needing treatment Diarrhea Multiple trauma (01/03/17) 10/03. Horse riding injury. Multiple rib fx, ruptured spleen, left shoulder disloc. 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 Initial dose 2015 Family History Sister Heart disease [place] Hypertension Skin cancer Mother , age 87 Lung cancer Father , age 93 Prostate cancer Skin cancer Maternal Grandfather Alcohol abuse Paternal Grandfather No problems noted. Maternal Grandmother , age 104 No problems noted. Paternal Grandmother No problems noted. Social History Smoking/Tobacco Use Status: Former Tobacco Use tobacco type: cigarettes Quit Date: 11/19/73 Tobacco: How many years used: 2 Second Hand Exposure: Yes Smoking risk assessment performed?: Yes Alcohol Intake: current Alcohol Intake frequency: a few times a month Alcohol type: beer and wine Drug use: Rarely Substance use type: marijuana Adopted: No Caregiver/Support person: No Foster care: No Household members: spouse Housing: house Number of Children: 1 number of grandchildren: 2 Communication Needs: None Education Level: college Do you need help understanding health information?: Never 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 Pets and animals: Yes Pets and animals: cat(s) and horse(s) Sexually active: Yes Do you think of yourself as: straight/heterosexual Current gender identity: female What is your relationship status?: How often do you talk on the phone with friends or family?: three or more times per week How often do you get together with friends or relatives?: once per week How often do you attend adventist or baptist services?: decline to answer Do you belong to any clubs or organized social groups?: no Panel score (0-1 are the most socially isolated patients): 1 What type of physical activity do you participate in: other Details: gardening,farm chores Duration: decline to answer Frequency: decline to answer Aurora/Nondenominational: No preference Special aurora needs: No Seatbelt use: always Helmet use: No Drive intox or ride w/intox ready mix truck driver: No Do you feel safe at home: Yes Do you feel safe in your relationship?: Yes Additional Social history: in 2022, had BF who is here parts back counter man. Enjoys playing music/guitar/singing. Previously rode horses until accident in 2014. Time Spent with Patient Time Spent with Patient: 45-69 minutes Time was spent: preparing to see the patient(eg.review tests), obtaining and/or reviewing separately otained hiistory, ordering medications,tests, procedures, referring, communicating with other health care management assistant, indepentently interpreting results, counseling the patient and care coordination
== END 2025-06-19 12:11 | disposition home or self-care (01) ==
LOC: ER 18:19 → MS 18:22
PROVIDERS: Admitting Provider Family Medicine; Emergency Provider Emergency Medicine; PCP Nurse Practitioner Family; Responsible Provider Hospitalist; Visit Provider Family Medicine
DX: I48.91 Unspecified atrial fibrillation (principal); I48.92 Unspecified atrial flutter; I10 Essential (primary) hypertension; E78.5 Hyperlipidemia, unspecified; Z90.81 Acquired absence of spleen; G43.909 Migraine, unspecified, not intractable, without status migrainosus; I47.10 Supraventricular tachycardia, unspecified; R06.02 Shortness of breath; R53.83 Other fatigue; L03.116 Cellulitis of left lower limb; M81.0 Age-related osteoporosis without current pathological fracture; F10.90 Alcohol use, unspecified, uncomplicated; S91.012S Laceration without foreign body, left ankle, sequela; X58.XXXS Exposure to other specified factors, sequela
CPT/HCPCS: 00123; 36415; 80053; 80061; 93005; 93306; 93308; 96361; 96374; 96375; 99285; 71045; 83735; 83880; 84443; 84484; 85025; 85379; 85610; 93010; 99222; 99232; 99239; 99291; G0378; J1938; J3490

== ENCOUNTER → 2025-08-20 09:29 | Outpatient (BNVA) | payer MEDICARE, SELFPAY | PROVIDERS: PCP Nurse Practitioner Family; Referring Provider Nurse Practitioner Family; Visit Provider Student in an Organized Health Care Education/Training Program | DX: M17.12 Unilateral primary osteoarthritis, left knee (principal); M16.11 Unilateral primary osteoarthritis, right hip; I10 Essential (primary) hypertension; Z79.01 Long term (current) use of anticoagulants | CPT/HCPCS: 99215; 20610; J1010 ==